=== PATIENT | female | born 1940 | race Caucasian/White ===

== ENCOUNTER → 2016-08-07 | Outpatient (CLI) | payer OTHER ==
[~2016-08-07] MED LIST: IOPAMIDOL (ISOVUE-300) 50 ML VIAL IV ONE
--- NOTE | 2016-08-07 17:03 | CT ---
CT Abdomen and Pelvis History: 76-year-old with diarrhea, fever, history of ulcerative colitis, rectal bleeding. Comparison: CT abdomen and pelvis of April 01, 2016. Technique: Axial contrast-enhanced images were obtained through the abdomen and pelvis following the uneventful administration of oral and 90 mL Isovue-300 intravenous contrast. Dose reduction technique s were utilized. Findings: Abdomen: Mild basilar atelectasis/scarring is present. Coronary artery atherosclerosis is present in the RCA. The visible liver, spleen, and adrenals are normal. Cholelithiasis and choledocholithiasis are presen t without significant biliary dilatation. Parapelvic cysts are noted in the left kidney. The right ki dney is normal. Sigmoid diverticulosis is present without evidence of diverticulitis. There is mild circumferential t hickening of portions of the colon, which are poorly distended, including the distal transverse colon (series 4 image 134 e.g.). There is no free air. A small hiatal hernia is present. Mild atherosclerosis is present in a normal caliber aorta. The IVC, hepatic, portal, splenic, and sup erior mesenteric veins are patent. A small fat-containing paraumbilical hernia is noted. Severe T12 and mild L1, L2, and L4 compression fractures are unchanged. Multilevel degenerative mireles e in the lumbar spine is again noted. Pelvis: Visualization of the pelvis is limited by artifact from the patient's bilateral hip prosthese s. A pessary is noted. The bladder is decompressed and poorly visualized. No aggressive osseous lesio ns are identified. Patchy demineralization in the sacrum is stable. Impression: 1. Mild colonic thickening most prominent in the transverse colon, suspicious for colitis, although u nderdistention limits assessment of the colon. 2. Cholelithiasis and choledocholithiasis without evidence of cholecystitis. 3. Multiple stable compression fractures, including a severe T12 compression fracture. 4. Additional findings as above.
== END ==
LOC: FIMAGING 15:37
PROVIDERS: ATTEND Internal Medicine Infectious Disease
DX: K57.90 Diverticulosis of intestine, part unspecified, without perforation or abscess without bleeding (principal); K80.20 Calculus of gallbladder without cholecystitis without obstruction; K80.50 Calculus of bile duct without cholangitis or cholecystitis without obstruction; I25.10 Atherosclerotic heart disease of native coronary artery without angina pectoris; N28.1 Cyst of kidney, acquired; M48.54XA Collapsed vertebra, not elsewhere classified, thoracic region, initial encounter for fracture
CPT/HCPCS: 74177; Q9967

== ENCOUNTER 2016-11-07 11:13 | Inpatient (IN) | payer OTHER ==
[2016-11-07] MEDS ORDERED: NS 1,000 ML IV ONE (11:47)
[2016-11-07] MEDS ORDERED: ONDANSETRON 4 MG/2 ML VIAL IVP ONE (11:47)
--- NOTE | 2016-11-07 11:51 | EDPHY ---
H & P Stated Complaint: abdominal pain Time Seen by Provider: 11/07/16 11:31 HPI/ROS: CHIEF COMPLAINT: Abdominal pain HISTORY OF PRESENT ILLNESS: Patient is a [facility] 68-year-old female who comes to the emergency department complaining of abdominal pain and distension and no bowel movement for 2 days. She has a history of ulcerative colitis and typically has about 10 bowel movements per day. She is currently on steroids. She is followed by Dr. Armas and had a colonoscopy 1 month ago that was negative for any cancer. Several polyps biopsied. She has history of atrial fibrillation and is on Xarelto. She is not vomiting. She denies chest pain or shortness of breath. REVIEW OF SYSTEMS: Constitutional: denies: chills, fever, recent illness, recent injury EENTM: denies: blurred vision, double vision, nose congestion Respiratory: denies: cough, shortness of breath Cardiac: denies: chest pain, irregular heart rate, lightheadedness, palpitations Gastrointestinal/Abdominal: See HPI Genitourinary: denies: dysuria, frequency, hematuria, pain Musculoskeletal: denies: joint pain, muscle pain Skin: denies: lesions, rash, jaundice, bruising Neurological: denies: headache, numbness, paresthesia, tingling, dizziness, weakness Hematologic/Lymphatic: denies: blood clots, easy bleeding, easy bruising Immunologic/allergic: denies: HIV/AIDS, transplant EXAM: GENERAL: Well-appearing, well-nourished and in no acute distress. HEAD: Atraumatic, normocephalic. EYES: Pupils equal round and reactive to light, extraocular movements intact, sclera anicteric, conjunctiva are normal. ENT: TMs normal, nares patent, oropharynx clear without exudates. Moist mucous membranes. NECK: Normal range of motion, supple without lymphadenopathy or JVD. LUNGS: Breath sounds clear to auscultation bilaterally and equal. No wheezes rales or rhonchi. HEART: Regular rate and rhythm without murmurs, rubs or gallops. ABDOMEN: Distended abdomen, reducible umbilical hernia, tympanic BACK: No CVA tenderness, no spinal tenderness, step-offs or deformities EXTREMITIES: Normal range of motion, no pitting or edema. No clubbing or cyanosis. NEUROLOGICAL: Cranial nerves II through XII grossly intact. Normal speech, normal gait. 5/5 strength, normal movement in all extremities, normal sensation PSYCH: Normal mood, normal affect. SKIN: Warm, dry, normal turgor, no visible rashes or lesions. Source: Patient Exam Limitations: No limitations - Personal History Current Tetanus Diphtheria and Acellular Pertussis (TDAP): Yes - Medical/Surgical History Hx Asthma: No Hx Chronic Respiratory Disease: No Hx Diabetes: No Hx Cardiac Disease: Yes Hx Renal Disease: No Hx Cirrhosis: No Hx Alcoholism: No Hx HIV/AIDS: No Hx Splenectomy or Spleen Trauma: No Other PMH: Ulcerative colitis, DVT, atfib, bilateral hip and knee replacements, diverticulitis - Family History Significant Family History: No pertinent family hx - Social History Smoking Status: Never smoked Alcohol Use: Sober Drug Use: None Constitutional: Initial Vital Signs Temperature (C) 36.9 C 11/07/16 11:13 Heart Rate 100 11/07/16 11:13 Respiratory Rate 16 11/07/16 11:13 Blood Pressure 110/65 11/07/16 11:13 O2 Sat (%) 94 11/07/16 11:13 O2 Delivery Mode Nasal Cannula O2 (L/minute) 2 Allergies/Adverse Reactions: hydrocodone [Hydrocodone] Allergy (Intermediate, Verified 03/09/16 13:52) NAUSEA/VOMITING/HEARTBURN/CONSTIPATION rifaximin [From Xifaxan] Allergy (Mild, Verified 03/09/16 13:52) Rash vancomycin HCl [From Vancocin] Allergy (Mild, Verified 03/09/16 13:52) Rash WEEDS Allergy (Mild, Uncoded 11/26/12 16:19) Rash 2 ANTIBIOTICS Allergy (Uncoded 08/22/09 04:46) Home Medications: Medication Instructions Recorded Jasper-3 Fatty Acids/Fish Oil [Fish 1 each PO DAILY 04/13/12 Oil 1,000 mg Capsule] Cetirizine [ZyrTEC 10 mg (*)] 10 mg PO DAILY 03/09/16 Cholecalciferol Vit D3 [Vitamin D3 2,000 units PO DAILY 03/09/16 (*)] Estradiol [Estrace Vaginal (*)] 1 hardy VAG Q2D 03/09/16 Lactobacil 2-S.thermo-Bifido 1 1 each PO DAILY@10 03/09/16 [VSL#3 DS PACKET] Mesalamine [Apriso 0.375 gm] 1.5 gm PO DAILY 03/09/16 Metoprolol Tartrate [Lopressor 25 12.5 mg PO BID 03/09/16 mg (*)] Rivaroxaban [Xarelto] 20 mg PO DAILY18 03/09/16 Budesonide [Uceris] 9 mg PO DAILY 11/07/16 Calcium Carbonate/Vitamin D3 1 each PO BID 11/07/16 [CALCIUM 600 + VIT D TABLET] Eflornithine HCl [Vaniqa] 1 hardy TP BID 11/07/16 Fluticasone Nasal [Flonase Nasal 1 sprays NASAL BID 11/07/16 Sieper (RX)] Fluticasone/Salmeter 250/50Mcg 1 puffs IH BID 11/07/16 [Advair 250/50 (*)] Herbals/Supplements -Info Only 1 ea PO DAILY 11/07/16 Humira Unk Dose 11/07/16 Reclast 5mg/100 1 each IV Q365D 11/07/16 Vancomycin [Vancomycin (*)] 125 mg PO Q6 11/07/16 predniSONE [predniSONE] 30 mg PO DAILY 11/07/16 Medical Decision Making - Diagnostics Imaging: Discussed imaging studies w/ call or contact centre team leader Radiologist ED Course/Re-evaluation: 1:25 p.m. Patient has a perforated small bowel with free air, free fluid in abscess. We have placed a page out to the [facility] surgeon. 1:35 p.m. I spoke with Dr. Diaz who will admit and is requesting to have IR drain. 1:[address] Rocha who does not think that the abscess is accessible through CT-guided drainage because it is surrounded by small-bowel. He will speak with Dr. Diaz about possibilities . Differential Diagnosis: Partial list of the Differential diagnosis considered include but were not limited to; small bowel obstruction, have abdominal wall hernia, abscess, perforation and although unlikely based on the history and physical exam, I also considered ischemia, volvulus. Critical Care Time: Critical care time spent by me, Dr. Hoyos exclusive with this patient was 35 minutes, exclusive of the PA time exclusive of procedures. The organ system that was at risk was gastrointestinal, cardiovascular and I gave IV fluids, antibiotics, consultations and admission to prevent worsening of the patient's condition - Data Points Laboratory Results: Laboratory Results 11/07/16 11:14 11/07/16 11:14 Medications Given: Discontinued Medications Hydromorphone HCl (Dilaudid) 0.5 mg IVP EDNOW ONE Stop: 11/07/16 13:47 Last Admin: 11/07/16 13:59 Dose: 0.5 mg Hydromorphone HCl (Dilaudid) 0.2 mg IVP Q2HRS PRN PRN Reason: Pain, Severe Unable to Take PO Stop: 11/17/16 18:05 Last Admin: 11/08/16 07:22 Dose: 0.2 mg Sodium Chloride (Ns) 1,000 mls @ 0 mls/hr IV ONCE ONE PRN Reason: Wide Open Stop: 11/07/16 11:48 Last Admin: 11/07/16 11:55 Dose: 1,000 mls Ertapenem 1 gm/ Sodium (Chloride) 100 mls @ 200 mls/hr IV EDNOW ONE PRN Reason: Protocol Stop: 11/07/16 14:05 Last Admin: 11/07/16 13:59 Dose: 100 mls Sodium Chloride (Ns) 500 mls @ 0 mls/hr IV ONCE ONE PRN Reason: As Directed Stop: 11/08/16 14:01 Last Admin: 11/08/16 13:59 Dose: 500 mls Sodium Chloride (Ns) 500 mls @ 1,500 mls/hr IV ONCE ONE Stop: 11/08/16 14:42 Last Admin: 11/08/16 15:44 Dose: Not Given Ondansetron HCl (Zofran) 4 mg IVP EDNOW ONE Stop: 11/07/16 11:48 Last Admin: 11/07/16 11:57 Dose: 4 mg Fluticasone/Salmeterol (Advair) 1 puffs IH BID LUANN Stop: 05/06/17 20:59 Last Admin: 11/07/16 20:27 Dose: Not Given Departure - Departure Disposition: [facility] Acute Clinical Impression: Ulcerative colitis, Small bowel perforation, Intraperitoneal abscess Condition: Fair
[2016-11-07 11:52] LABS: ADD MORPH? NO; ATYPICAL LYMPHOCYTE FLAG 50 (0-99); FRAGMENT RBC FLAG 20 (0-99); HEMATOCRIT 33.3 % (38.0-47.0); HEMOGLOBIN 10.1 g/dL (12.6-16.3); LIPEMIA HEMOLYSIS FLAG 80 (0-99); MEAN CELL HEMOGLOBIN CONCENTR. 30.3 g/dL (32.4-36.7); MEAN CELL VOLUME 82.4 fL (81.5-99.8); MEAN PLATELET VOLUME 9.8 fL (8.7-11.7); PLATELET CLUMPS FLAG 0 (0-99); PLATELET COUNT 390 10^3/uL (150-400); RED BLOOD CELL COUNT 4.04 10^6/uL (4.18-5.33); RED CELL DISTRIBUTION WIDTH 19.5 % (11.5-15.2)
[2016-11-07 11:53] LABS: LEFT SHIFT FLG 300 (0-99)
[2016-11-07 12:12] LABS: INR 2.15 (0.83-1.16); PROTIME(PATIENT) 24.2 SEC (12.0-15.0)
[2016-11-07 12:13] LABS: APTT 38.8 SEC (23.0-38.0)
[2016-11-07 12:29] LABS: ADD DIFF? YES; SCAN POSITIVE
[2016-11-07 12:32] LABS: ALANINE AMINOTRANSFERASE 19 IU/L (9-52); ALBUMIN 2.4 g/dL (3.5-5.0); ALKALINE PHOSPHATASE 61 IU/L (38-126); ANION GAP 7 mEq/L (8-16); ASPARTATE AMINOTRANSFERASE 15 IU/L (14-46); BILIRUBIN,TOTAL 0.6 mg/dL (0.1-1.4); BILIRUBIN-CONJUGATED 0.4 mg/dL (0.0-0.5); BILIRUBIN-UNCONJUGATED 0.2 mg/dL (0.0-1.1); CALCIUM 8.4 mg/dL (8.5-10.4); CARBON DIOXIDE 24 mEq/l (22-31); CHLORIDE 99 mEq/L (97-110); CREATININE 0.9 mg/dL (0.6-1.0); GLOMERULAR FILTRATION RATE > 60; GLUCOSE 96 mg/dL (70-100); POTASSIUM 4.3 mEq/L (3.5-5.2); SODIUM 130 mEq/L (134-144); TOTAL PROTEIN 5.2 g/dL (6.3-8.2)
[2016-11-07] MEDS ORDERED: IOPAMIDOL (ISOVUE-300) 100 ML BTL IV ONE (12:37)
[2016-11-07 12:46] LABS: HYPOCHROMIA 1+; MICROCYTES 1+; POLYCHROMASIA 2+
[2016-11-07 12:47] LABS: GIANT PLATELETS PRESENT; KERATOCYTES 1+; PLATELET ESTIMATE ADEQUATE (ADEQ); SCHISTOCYTES 1+
[2016-11-07] MEDS ORDERED: ERTAPENEM 1 GM in NS 100 ML IV ONE (13:36)
[2016-11-07] MEDS ORDERED: HYDROmorphONE/DILAUDID 1 MG/ML SYR IVP ONE (13:46)
[2016-11-07] MEDS ORDERED: BUPIVACAINE 0.25% 30 ML SDV ONE (15:51)
[2016-11-07] MEDS ORDERED: BUPIVACAINE 0.5% 30 ML SDV ONE (15:52)
[2016-11-07] MEDS ORDERED: MIDAZOLAM 2 MG/2 ML VIAL ONE (18:04)
[2016-11-07] MEDS ORDERED: fentaNYL 250 MCG/5 ML INJ ONE (18:04)
[2016-11-07] MEDS ORDERED: PROPOFOL 200 MG/20 ML VIAL ONE (18:04)
[2016-11-07] MEDS ORDERED: ALBUMIN 5% 250 ML BOTTLE IV ONE (18:16)
[2016-11-07] MEDS ORDERED: ROCURONIUM 50 MG/5 ML VIAL ONE ×2 (18:25→18:48)
[2016-11-07] MEDS ORDERED: SUCCINYLCHOLINE CHLORIDE*ANESTHESIA ONLY*200 MG/10 ML SYR IVP ONE (18:25)
[2016-11-07] MEDS ORDERED: METOPROLOL TARTRATE 5 MG/5 ML INJ ONE (18:25)
[2016-11-07] MEDS ORDERED: PHENYLEPHRINE HCL 100 MCG/ML SYR ONE (18:25)
[2016-11-07] MEDS ORDERED: CALCIUM CHLORIDE 1 GM/10 ML INJ ONE (18:27)
[2016-11-07] MEDS ORDERED: LR 1,000 ML IV SCH (18:30)
[2016-11-07 18:31] LABS: ADD SCAN? NO
[2016-11-07] MEDS ORDERED: NALOXONE HCL 0.4 MG/ML INJ IVP PRN (19:05)
[2016-11-07] MEDS ORDERED: ONDANSETRON 4 MG/2 ML VIAL ONE (19:15)
--- NOTE | 2016-11-07 20:08 | POSTOPPROG ---
Post Op Note Date of Operation: 11/07/16 Surgeon: Reji Diaz Anesthesiologist: Dr. Casillas Anesthesia: GET(General Endotracheal) Pre-op Diagnosis: Bowel perforation with abscess Post-op Diagnosis: Sigmoid perforation with abscess Procedure: Ex lap, drainage of abscess, closure of colonic perforation Inf/Abcess present in the surg proc area at time of surgery?: Yes Depth: Organ Space EBL: Minimal
[2016-11-07 20:32] LABS: COLOR YELLOW; LEUKOCYTE ESTERASE,URINE NEGATIVE (NEGATIVE); NITRITE,URINE NEGATIVE (NEGATIVE)
[2016-11-07 20:45] LABS: BACTERIA TRACE /hpf (NONE SEEN); MUCUS 1+ /lpf (NONE-1+)
[2016-11-07] MEDS ORDERED: FLUTICASONE/SALMETER 250/50MCG DISKUS IH SCH (21:00)
[2016-11-07] MEDS: HYDROmorphONE/DILAUDID 1 MG/ML SYR IVP PRN (21:29)
[2016-11-08 05:02] LABS: HEMATOCRIT 28.7 % (38.0-47.0); HEMOGLOBIN 8.7 g/dL (12.6-16.3); MEAN CELL HEMOGLOBIN 25.2 pg (27.9-34.1); MEAN CELL HEMOGLOBIN CONCENTR. 30.3 g/dL (32.4-36.7); MEAN CELL VOLUME 83.2 fL (81.5-99.8); RED BLOOD CELL COUNT 3.45 10^6/uL (4.18-5.33); RED CELL DISTRIBUTION WIDTH 19.3 % (11.5-15.2)
[2016-11-08 05:07] LABS: ALANINE AMINOTRANSFERASE 22 IU/L (9-52); ALKALINE PHOSPHATASE 37 IU/L (38-126); ANION GAP 6 mEq/L (8-16); ASPARTATE AMINOTRANSFERASE 18 IU/L (14-46); BILIRUBIN,TOTAL 1.1 mg/dL (0.1-1.4); CALCIUM 9.1 mg/dL (8.5-10.4); CARBON DIOXIDE 23 mEq/l (22-31); CHLORIDE 104 mEq/L (97-110); GLOMERULAR FILTRATION RATE 54; GLUCOSE 70 mg/dL (70-100); POTASSIUM 4.9 mEq/L (3.5-5.2); SODIUM 133 mEq/L (134-144); TOTAL PROTEIN 4.2 g/dL (6.3-8.2)
--- NOTE | 2016-11-08 06:17 | GOP ---
[f rep st] OPERATIVE REPORT DATE OF OPERATION: 11/07/2016 SURGEON: Cain Diaz MD ANESTHESIA: General endotracheal anesthesia. ANESTHESIOLOGIST: Robert Casillas. PREOPERATIVE DIAGNOSIS: Bowel perforation with abscess. POSTOPERATIVE DIAGNOSIS: Colonic perforation with abscess. PROCEDURE PERFORMED: 1. Exploratory laparotomy. 2. Drainage of intraabdominal abscess. 3. Repair of colon perforation. FINDINGS: The patient had an abscess with sigmoid perforation. No other significant lesions were identified. ESTIMATED BLOOD LOSS: 20 cc. INDICATIONS: This is a 76-year-old female with a history of abdominal pain. CT scan demonstrated abscess with likely perforation. Risks and benefits of the procedure were discussed the patient's family, their questions were answered , and they wished to proceed. DESCRIPTION OF PROCEDURE: The patient was in supine position. After induction of adequate general endotracheal anesthesia, the patient was prepped and draped in the standard surgical fashion. A midline laparotomy incision was made with a #10 blade and carried down through subcutaneous tissue with Bovie cautery and blunt dissection. The fascia was divided in the midline, and the abdomen was entered bluntly. Initially serous fluid was in encountered; however, in the pelvis, there was a purulent/fluid collection. This was cultured and then thoroughly drained and irrigated. There were some adherent loops of small bowel that were bluntly dissected away. The bowel appeared initially hemorrhagic but improved. The bowel was run from the ligament of Treitz to the ileocecal valve. No evidence of perforation was noted. The sigmoid was inspected and found to have an approximately 4 or 5 mm perforation on the anteromedial aspect. The sigmoid itself appeared quite viable. No further contamination was identified. Due to the patient's multiple medical conditions, the decision was made to repair the perforation and perform drainage of the abscess cavity. A 19 round TIKA drain was placed through a separate stab incision and affixed using 2-0 nylon in an interrupted fashion. The drain was placed in the abscess cavity itself after have been thoroughly irrigated. Next, a flap of peritoneum was mobilized using blunt dissection and cautery. This was placed over the perforation and tied down using 3-0 Vicryl in an interrupted fashion. The remainder of the colon was inspected, and no other lesions were identified. No further abscess cavities were noted. The fascia was then closed with #1 looped PDS in a running fashion. As part of this, the patient's umbilical hernia was repaired. The wound was thoroughly irrigated, and the skin was closed with torres. Wound and TIKA site were sterilely dressed, and the patient was extubated and taken to the ICU in stable condition. COMPLICATIONS: None. DRAINS: Include the TIKA drain in the abscess cavity. /[id number]/MODL MTDD
[2016-11-08] MEDS: HYDROmorphONE/DILAUDID 1 MG/ML SYR IVP PRN ×5 (07:22→21:14)
[2016-11-08] MEDS: FLUTICASONE/SALMETER 250/50MCG DISKUS IH SCH ×2 (08:43→20:24)
[2016-11-08] MEDS: ERTAPENEM 1 GM in NS 100 ML IV SCH (08:49)
--- NOTE | 2016-11-08 10:33 | GCON ---
[f rep st] CONSULTATION DATE OF CONSULTATION: 11/08/2016 REFERRING PHYSICIAN: Cain Diaz MD REASON FOR CONSULTATION: Opinion regarding complex medical patient in the perioperative state. HISTORY OF PRESENT ILLNESS: The patient is a 76-year-old female with ulcerative colitis on chronic steroids. She has been recently battling Clostridium difficile and has been diagnosed with C. diff 3 times in the recent history. She was just restarted on oral vancomycin last Sunday. Two days ago she developed increased abdominal pain and distention with profuse nausea and vomiting. She went f rom 10 bowel movements a day to none. She presented to the emergency room and initial CAT scan show ed free air. She was brought emergently to the operating room with Dr. Diaz. She was found to h ave a colon perforation with abscess. She underwent drainage and repair of the colon perforation. This morning the patient is doing very well. She is awake, alert, normal mental status, complainin g of fear and anxiety regarding what has happened to her. Otherwise she is having some pain for whi ch she is inadequately controlled on 0.2 of Dilaudid. She is otherwise actually remarkably well and stable. PAST MEDICAL HISTORY: 1. Ulcerative colitis. 2. Atrial fibrillation. 3. Recurrent DVT and PE. 4. History of C diff x3. PAST SURGICAL HISTORY: 1. Bilateral total hip. 2. Bilateral total knee. MEDICATIONS: Please see computer record for a full detailed list. ALLERGIES: Rifaximin. SOCIAL HISTORY: No smoking. No alcohol. She lives with her . REVIEW OF SYSTEMS: Complete review of systems obtained. Review of systems is negative regarding co nstitutional, HEENT, GI, pulmonary, cardiovascular, , hematology, skin, muscular, endocrine, psych except for positives and negatives as noted in her HPI. FAMILY HISTORY: Reviewed and noncontributory to current complaint. PHYSICAL EXAMINATION: GENERAL: Well-developed, well-nourished female in no acute distress. VITAL SIGNS: Temperature is 36.8, pulse of 90, blood pressure 113/58, satting 100% on 2 L. EYE: Normal conjunctiva. Pupils are equal, round, react to light. ENT: Normal ears and nose. Hearing intact. Normal teeth. Oropharynx moist. NECK: Trachea midline. No thyromegaly. CHEST: Normal respira tory effort. LUNGS: Clear to auscultation bilaterally. CARDIOVASCULAR: Regular rate, regular rhy thm. No murmur. No lower extremity edema. ABDOMEN: Soft, distended. Positive tenderness postope rative. No hepatosplenomegaly. SKIN: Warm and dry, intact. No rash. MUSCULOSKELETAL: No cyanos is or clubbing. Strength 5/5 upper and lower extremities. NEUROLOGIC: Cranial nerves intact. Nor mal sensation to light touch. PSYCH: Alert and oriented x3. Normal affect. Normal judgment. Nor mal memory. She is anxious. LABORATORY DATA: White count 13.05, hematocrit 28.7, platelets 328, sodium 133, potassium 4.9, chlo ride 104, bicarb 23, BUN 19, creatinine 1.0, glucose is 70. INR 2.15. CT scan of the abdomen and pelvis showed extensive free intraperitoneal air and fluid compatible wit h bowel perforation. MEDICAL RECORDS REVIEW: She was hospitalized here in March at that time due to a femur fracture . Her ulcer colitis was relatively quiescent. She did have acute diverticulitis. ASSESSMENT AND PLAN: 1. Colon perforation with abscess status post drainage and repair. She has been started on IV Inva nz which will be continued. We will increase her IV Dilaudid for improved pain control. 2. Recent diagnosis of Clostridium difficile colitis. Oral vancomycin is being held and we will gi ve her IV Flagyl while she is n.p.o. It is unclear how the Clostridium difficile may have contribut ed to the colon perforation. Her chronic steroids are also an issue. 3. Ulcerative colitis on chronic steroids. We will dose IV hydrocortisone while she is n.p.o. 4. This will also be adequate stress dose. 5. History of recurrent deep venous thrombosis and pulmonary emboli. She is very high risk. Xarel to is being held. Need to restart anticoagulation JENNY when okay with surgery. 6. Atrial fibrillation. We will restart oral metoprolol when she is taking p.o. At this point, sh e is controlled. CODE STATUS: She requests full COR. Internal Medicine will continue to follow along while she remains hospitalized. /[id number]/MODL
--- NOTE | 2016-11-08 12:38 | SOAPPROG ---
SOAP Progress Note Assessment/Plan: Assessment: s/p ex-lap with oversew and drainage of abscess, stable. Cont NPO, TIKA, abx, IVF. Cont ICU care as steroids likely blunting response. Plan: 11/08/16 12:37 Subjective: Patient c/o incisional pain, improved with meds. No N/V. Objective: Vital Signs Temp Pulse Resp BP Pulse Ox 36.7 C 101 H 20 122/51 H 94 11/08/16 08:00 11/08/16 08:46 11/08/16 08:46 11/08/16 08:00 11/08/16 08:46 Microbiology 11/07/16 18:29 Gram Stain - Final Abdomen - Eswab Laboratory Results 11/08/16 04:44 11/08/16 04:44 11/07/16 11/08/16 11/09/16 05:59 05:59 05:59 Intake Total 900 Output Total 890 Balance 10 PT 24.2 SEC (12.0-15.0) H 11/07/16 11:14 INR 2.15 (0.83-1.16) H 11/07/16 11:14 Alert, NAD RRR Abd sl distended, inc TTP drsg C/D/I TIKA serosang ICD10 Worksheet Patient Problems: Problems Problem Status Onset Intraperitoneal abscess Acute Small bowel perforation Acute Ulcerative colitis Acute Chronic bronchitis Active Fracture of lower leg Active History of - deep vein thrombosis Active C. difficile diarrhea Acute 11/01/16 Diverticulitis Acute Femur fracture Acute
[2016-11-08] MEDS: HYDROCORTISONE 100 MG/2 ML VIAL IVP SCH ×2 (13:31→21:14)
[2016-11-08] MEDS ORDERED: NS 500 ML IV ONE ×2 (14:00→14:23)
[2016-11-08] MEDS: NS 1,000 ML IV SCH (14:55)
[2016-11-08] MEDS: METOPROLOL TARTRATE 5 MG/5 ML INJ IV PRN (15:04)
--- NOTE | 2016-11-08 16:12 | HOSPPROG ---
Hospitalist Progress Note Assessment/Plan: * colonic perforation with abscess status post surgery * continue IV Invanz * consider Infectious Disease consultation at some point * ulcerative colitis on chronic steroids * continue stress dose steroids * recent diagnosis of C diff * continue IV Flagyl until can take p.o. * borderline hypotension and poor urine output * lactate is normal * will increase IV fluids * history of DVT and PE * had been on Xarelto evidenced by elevated INR on admission * probably still protected today * tomorrow will start DVT prophylaxis dosing of Lovenox - not sure we need to increase dosing until several more days Subjective: complaining of some abdominal pain Objective: Vital Signs Temp Pulse Resp BP Pulse Ox 36.5 C 133 H 20 118/58 L 98 11/08/16 12:41 11/08/16 15:04 11/08/16 12:41 11/08/16 15:04 11/08/16 12:41 Microbiology 11/07/16 18:29 Gram Stain - Final Abdomen - Eswab Laboratory Results 11/08/16 04:44 11/08/16 04:44 11/07/16 11/08/16 11/09/16 05:59 05:59 05:59 Intake Total 900 Output Total 890 Balance 10 PT 24.2 SEC (12.0-15.0) H 11/07/16 11:14 INR 2.15 (0.83-1.16) H 11/07/16 11:14 - Physical Exam Constitutional: no apparent distress, appears nourished, not in pain Eyes: anicteric sclera, EOMI Ears, Nose, Mouth, Throat: moist mucous membranes, hearing normal Cardiovascular: regular rate and rhythym, tachycardia ( mild tachycardia at times) Respiratory: no respiratory distress, no rales or rhonchi, clear to auscultation Gastrointestinal: other ( decreased bowel sounds distended soft mildly tender) Neurologic: AAOx3 ICD10 Worksheet Patient Problems: Problems Problem Status Onset Intraperitoneal abscess Acute Small bowel perforation Acute Ulcerative colitis Acute Chronic bronchitis Active Fracture of lower leg Active History of - deep vein thrombosis Active C. difficile diarrhea Acute 11/01/16 Diverticulitis Acute Femur fracture Acute
--- NOTE | 2016-11-08 16:19 | GCON ---
[f rep st] CONSULTATION CRITICAL CARE CONSULTATION DATE OF CONSULTATION: 11/08/2016 HISTORY OF PRESENT ILLNESS: The patient is a 76-year-old female with a history of ulcerative coliti s who underwent a colonoscopy just a few weeks ago without difficulty. She also had problems with r ecurrent C difficile colitis and was treated with oral vancomycin as of just a few days prior to adm ission. In any case, she was admitted yesterday with increasing abdominal pain and was found to hav e a perforation, required urgent partial colectomy in the OR. She did well with that and is now ronald ng observed in the intensive care unit. She was on anticoagulation prior to that due to recurrent t hromboembolic disease but that was obviously held. She also received stress dose steroids since she is on chronic steroids for the ulcerative colitis. REVIEW OF SYSTEMS: Otherwise stable. PAST MEDICAL HISTORY: Includes: 1. Ulcerative colitis. 2. C difficile. 3. Atrial fibrillation. 4. Venous thromboembolic disease as described above. PAST SURGICAL HISTORY: Includes the recent surgery from yesterday. She has also had bilateral tota l knee arthroplasties and bilateral total hip arthroplasties. SOCIAL HISTORY: She is a nonsmoker. No alcohol or IV drug use. FAMILY HISTORY: Noncontributory. MEDICATIONS: She is currently being treated with ertapenem, Solu-Cortef, Dilaudid, Flagyl, Zofran, Advair. PHYSICAL EXAMINATION: VITAL SIGNS: She was afebrile. Heart rate 108, respirations 21, blood press ure 122/51, sat 94% on 2 L. GENERAL: She was awake and alert, oriented x3, and in no apparent dist ress and able to speak in full sentences without using accessory muscles for breathing. HEENT: Pup ils are equally round and reactive to light and nonicteric and noninjected. Mucous membranes are mo ist, without erythema or exudate. NECK: Supple, without adenopathy or jugular vein distention. RE SPIRATORY: Breath sounds are somewhat diminished but otherwise clear to auscultation bilaterally wi thout wheezes, rubs or rales. HEART: Regular rate and rhythm though the monitor looked like it was irregular. There are no obvious murmurs. ABDOMEN: Mildly tender but otherwise hypoactive bowel t ones and nondistended. EXTREMITIES: No clubbing, cyanosis, or edema. NEUROLOGIC: Nonfocal, inclu ding cranial nerves and deep tendon reflexes. SKIN: Warm and dry, without evidence of rash. OBJECTIVE DATA: Includes a white count of 13 today, hematocrit was 28, platelets of 328. Sodium is 133. The rest of her basic metabolic panel was unremarkable. Albumin only 2.0. UA was essentiall y negative from yesterday. ASSESSMENT/PLAN: 1. Colonic perforation. She appears to be recovering from this reasonably well and has good antibi otic coverage and is otherwise stable. She will remain n.p.o., according to surgery notes, for anot her day but expected good recovery. 2. History of atrial fibrillation. She is rate controlled at this time. I am concerned that she m ay have a rebound tachycardia and I have written for p.r.n. IV metoprolol should her heart rate get above 120. 3. Clostridium difficile. It is possible this is a colonizer though this was identified only a few weeks ago. She is on Clostridium difficile precautions. She is getting Flagyl currently which blake uld be reasonable coverage for that. We will otherwise continue to follow. /[id number]/MODL
[2016-11-09] MEDS: NS 1,000 ML IV SCH ×3 (05:21→22:23)
[2016-11-09 05:39] LABS: HEMATOCRIT 25.3 % (38.0-47.0); HEMOGLOBIN 7.7 g/dL (12.6-16.3); MEAN CELL HEMOGLOBIN 25.8 pg (27.9-34.1); MEAN CELL HEMOGLOBIN CONCENTR. 30.4 g/dL (32.4-36.7); MEAN CELL VOLUME 84.6 fL (81.5-99.8); RED BLOOD CELL COUNT 2.99 10^6/uL (4.18-5.33); RED CELL DISTRIBUTION WIDTH 19.3 % (11.5-15.2)
[2016-11-09 05:47] LABS: ALANINE AMINOTRANSFERASE 25 IU/L (9-52); ALBUMIN 1.8 g/dL (3.5-5.0); ALKALINE PHOSPHATASE 48 IU/L (38-126); ANION GAP 6 mEq/L (8-16); ASPARTATE AMINOTRANSFERASE 14 IU/L (14-46); BILIRUBIN,TOTAL 0.4 mg/dL (0.1-1.4); CALCIUM 7.7 mg/dL (8.5-10.4); CARBON DIOXIDE 20 mEq/l (22-31); CHLORIDE 109 mEq/L (97-110); CREATININE 0.8 mg/dL (0.6-1.0); GLOMERULAR FILTRATION RATE > 60; GLUCOSE 79 mg/dL (70-100); POTASSIUM 4.1 mEq/L (3.5-5.2); SODIUM 135 mEq/L (134-144); TOTAL PROTEIN 4.2 g/dL (6.3-8.2)
[2016-11-09] MEDS: HYDROCORTISONE 100 MG/2 ML VIAL IVP SCH ×3 (06:40→22:18)
[2016-11-09] MEDS: ERTAPENEM 1 GM in NS 100 ML IV SCH (08:22)
[2016-11-09] MEDS: ENOXAPARIN 40 MG/0.4 ML SYR SC SCH (08:23)
[2016-11-09] MEDS: HYDROmorphONE/DILAUDID 1 MG/ML SYR IVP PRN ×4 (08:30→16:08)
[2016-11-09] MEDS: FLUTICASONE/SALMETER 250/50MCG DISKUS IH SCH ×2 (09:33→21:24)
--- NOTE | 2016-11-09 10:12 | SOAPPROG ---
SOAP Progress Note Assessment/Plan: Assessment: s/p ex-lap with oversew and drainage of abscess, stable. Cont TIKA, abx, IVF. Poss advance to clears once she is more mobile. Appreciate consultants' input. D/w patient and at length, questions answered. Plan: 11/08/16 12:37 11/09/16 10:10 Subjective: Patient c/o inc pain, improving. No N/V. No ambulation. Objective: Vital Signs Temp Pulse Resp BP Pulse Ox 36.4 C 124 H 20 113/61 95 11/09/16 07:32 11/09/16 09:33 11/09/16 09:33 11/09/16 09:33 11/09/16 09:33 Microbiology 11/07/16 18:29 Gram Stain - Final Abdomen - Eswab Laboratory Results 11/09/16 05:00 11/09/16 05:00 11/08/16 11/09/16 11/10/16 05:59 05:59 05:59 Intake Total 900 3188 Output Total 890 1065 Balance 10 2123 PT 24.2 SEC (12.0-15.0) H 11/07/16 11:14 INR 2.15 (0.83-1.16) H 11/07/16 11:14 Alert, NAD Irreg Abd soft, inc TTP Inc C/D/I TIKA serous. ICD10 Worksheet Patient Problems: Problems Problem Status Onset Intraperitoneal abscess Acute Small bowel perforation Acute Ulcerative colitis Acute Chronic bronchitis Active Fracture of lower leg Active History of - deep vein thrombosis Active C. difficile diarrhea Acute 11/01/16 Diverticulitis Acute Femur fracture Acute
--- NOTE | 2016-11-09 12:25 | PDINTPN ---
[employer] Progress Note Assessment/Plan: Assessment/plan: 76 F with history of ulcerative colitis s/p colonoscopy with polyp removal 2-3 weeks [facility] [employer] admitted with abdominal pain and found to have bowel perforation and abscess. She underwent hemicolectomy and was brought to the ICU for ongoing monitoring. Her PMH also includes chronic afib, for which she was controlled on BID metoprolol and anticoagulation. * Peritonitis- 2/2 bowel perforation. Clinically stable without pressors and WBC hovering at 14. Currently covered with ertapenem and flagyl. Abdominal cultures with Klebsiella and E. Coli. * C diff- this is a recent diagnosis but is apparently recurrent. She is covered with IV flagyl and remains NPO so oral vancomycin cannot be used. * Afib- she remains rate controlled and has IV metoprolo written prn HR >120 ( assuming rate is afib) * * Objective: Vital Signs Temp Pulse Resp BP Pulse Ox 36.6 C 106 H 18 95/57 L 95 11/09/16 11:51 11/09/16 11:51 11/09/16 11:51 11/09/16 11:51 11/09/16 11:51 Microbiology 11/07/16 18:29 Gram Stain - Final Abdomen - Eswab Laboratory Results 11/09/16 05:00 11/09/16 05:00 11/08/16 11/09/16 11/10/16 05:59 05:59 05:59 Intake Total 900 3188 Output Total 890 1065 Balance 10 2123 PT 24.2 SEC (12.0-15.0) H 11/07/16 11:14 INR 2.15 (0.83-1.16) H 11/07/16 11:14 Physical Exam - Physical Exam General Appearance: WD/WN, alert, no apparent distress, obese EENT: PERRL/EOMI Neck: supple Respiratory: lungs clear, normal breath sounds, No respiratory distress Cardiac/Chest: normal peripheral pulses, regular rate, rhythm, No edema Abdomen: non-tender, soft, No distended Skin: normal color, warm/dry Extremities: No pedal edema Neuro/Psych: alert, normal mood/affect, oriented x 3 ICD10 Worksheet Patient Problems: Problems Problem Status Onset Intraperitoneal abscess Acute Small bowel perforation Acute Ulcerative colitis Acute Chronic bronchitis Active Fracture of lower leg Active History of - deep vein thrombosis Active C. difficile diarrhea Acute 11/01/16 Diverticulitis Acute Femur fracture Acute
[2016-11-09] MEDS: METOPROLOL TARTRATE 5 MG/5 ML INJ IV PRN (14:37)
--- NOTE | 2016-11-09 17:17 | HOSPPROG ---
Hospitalist Progress Note Assessment/Plan: 76 yo F w UC< recurrent cdiff, chronic steroids, bowel perf bowel perf: pod 2 s/p repair and washout e coli and klebsiella on peritoneal fluid on ertapenem blood cx of spikes recurrent cdiff: po vanc restarted can dc flagyl unclear contribution to current situation continue po vanc while on broad spectrum abx h/o AF: in AF now restart po metoprolol h/o PE: high risk for VTE on enox pain: prn IV dilaudid code: full Subjective: case d/w dr crowell, dr horvath. tele: AF (interp by me) Objective: Vital Signs Temp Pulse Resp BP Pulse Ox 36.7 C 98 13 115/62 96 11/09/16 16:00 11/09/16 16:00 11/09/16 16:00 11/09/16 16:00 11/09/16 16:00 Microbiology 11/07/16 18:29 Gram Stain - Final Abdomen - Eswab Laboratory Results 11/09/16 05:00 11/09/16 05:00 11/08/16 11/09/16 11/10/16 05:59 05:59 05:59 Intake Total 900 3188 Output Total 890 1065 Balance 10 2123 PT 24.2 SEC (12.0-15.0) H 11/07/16 11:14 INR 2.15 (0.83-1.16) H 11/07/16 11:14 - Physical Exam Constitutional: no apparent distress, appears nourished Eyes: PERRL, anicteric sclera Ears, Nose, Mouth, Throat: moist mucous membranes, hearing normal Cardiovascular: regular rate and rhythym, no murmur, rub, or gallop Respiratory: no respiratory distress, no rales or rhonchi Gastrointestinal: distension, No normoactive bowel sounds, No rebound Skin: warm, normal color Musculoskeletal: full muscle strength ICD10 Worksheet Patient Problems: Problems Problem Status Onset Intraperitoneal abscess Acute Small bowel perforation Acute Ulcerative colitis Acute Chronic bronchitis Active Fracture of lower leg Active History of - deep vein thrombosis Active C. difficile diarrhea Acute 11/01/16 Diverticulitis Acute Femur fracture Acute
[2016-11-09] MEDS: VANCOMYCIN 125 MG/2.5 ML UDL PO SCH ×2 (19:24→23:53)
[2016-11-09] MEDS: METOPROLOL TARTRATE 25 MG TAB PO SCH (21:02)
[2016-11-10] MEDS: HYDROmorphONE/DILAUDID 1 MG/ML SYR IVP PRN ×5 (02:06→20:44)
[2016-11-10] MEDS: ONDANSETRON 4 MG/2 ML VIAL IVP PRN ×4 (02:21→20:40)
[2016-11-10] MEDS: NS 1,000 ML IV SCH ×2 (04:41→20:38)
[2016-11-10 04:51] LABS: HEMATOCRIT 28.1 % (38.0-47.0); HEMOGLOBIN 8.5 g/dL (12.6-16.3); LIPEMIA HEMOLYSIS FLAG 80 (0-99); MEAN CELL HEMOGLOBIN 25.3 pg (27.9-34.1); MEAN CELL HEMOGLOBIN CONCENTR. 30.2 g/dL (32.4-36.7); MEAN CELL VOLUME 83.6 fL (81.5-99.8); PLATELET COUNT 405 10^3/uL (150-400); RED BLOOD CELL COUNT 3.36 10^6/uL (4.18-5.33); RED CELL DISTRIBUTION WIDTH 19.3 % (11.5-15.2)
[2016-11-10 05:05] LABS: ALANINE AMINOTRANSFERASE 26 IU/L (9-52); ALBUMIN 2.1 g/dL (3.5-5.0); ALKALINE PHOSPHATASE 63 IU/L (38-126); ANION GAP 7 mEq/L (8-16); ASPARTATE AMINOTRANSFERASE 16 IU/L (14-46); BILIRUBIN,TOTAL 0.4 mg/dL (0.1-1.4); CALCIUM 7.3 mg/dL (8.5-10.4); CARBON DIOXIDE 19 mEq/l (22-31); CHLORIDE 111 mEq/L (97-110); CREATININE 0.8 mg/dL (0.6-1.0); GLOMERULAR FILTRATION RATE > 60; GLUCOSE 135 mg/dL (70-100); POTASSIUM 4.2 mEq/L (3.5-5.2); SODIUM 137 mEq/L (134-144); TOTAL PROTEIN 4.7 g/dL (6.3-8.2)
[2016-11-10] MEDS: HYDROCORTISONE 100 MG/2 ML VIAL IVP SCH ×3 (05:58→22:28)
[2016-11-10] MEDS: VANCOMYCIN 125 MG/2.5 ML UDL PO SCH ×3 (05:59→22:34)
[2016-11-10] MEDS: METOPROLOL TARTRATE 25 MG TAB PO SCH ×2 (09:18→22:30)
[2016-11-10] MEDS: ERTAPENEM 1 GM in NS 100 ML IV SCH (09:18)
[2016-11-10] MEDS: ENOXAPARIN 40 MG/0.4 ML SYR SC SCH (09:19)
[2016-11-10] MEDS: FLUTICASONE/SALMETER 250/50MCG DISKUS IH SCH ×2 (10:19→19:45)
--- NOTE | 2016-11-10 12:21 | SOAPPROG ---
SOAP Progress Note Assessment/Plan: Assessment: s/p ex-lap with oversew and drainage of abscess, stable. Cont TIKA, abx, IVF. Protonix for heartburn. Ambulate. Cont clears for now. Plan: 11/08/16 12:37 11/09/16 10:10 11/10/16 12:20 Subjective: Patient c/o heartburn, some incisional pain. No nausea. Wilmar clears. Minimal ambulation. Objective: Vital Signs Temp Pulse Resp BP Pulse Ox 36.4 C 96 14 126/74 H 96 11/10/16 08:00 11/10/16 10:24 11/10/16 10:24 11/10/16 08:00 11/10/16 10:24 Microbiology 11/07/16 18:29 Gram Stain - Final Abdomen - Eswab Laboratory Results 11/10/16 04:37 11/10/16 04:37 11/09/16 11/10/16 11/11/16 05:59 05:59 05:59 Intake Total 3188 3415 Output Total 1065 1045 Balance 2123 2370 PT 24.2 SEC (12.0-15.0) H 11/07/16 11:14 INR 2.15 (0.83-1.16) H 11/07/16 11:14 Alert, NAD irreg Abd soft, inc TTP Inc C/D/I TIKA serous ICD10 Worksheet Patient Problems: Problems Problem Status Onset Intraperitoneal abscess Acute Small bowel perforation Acute Ulcerative colitis Acute Chronic bronchitis Active Fracture of lower leg Active History of - deep vein thrombosis Active C. difficile diarrhea Acute 11/01/16 Diverticulitis Acute Femur fracture Acute
[2016-11-10] MEDS ORDERED: DILTIAZEM 25 MG/5 ML VIAL IVP SCH (13:00)
[2016-11-10] MEDS: PANTOPRAZOLE SODIUM 40 MG in NS 100 ML IV SCH (13:28)
--- NOTE | 2016-11-10 15:23 | HOSPPROG ---
Hospitalist Progress Note Assessment/Plan: 76 yo F w UC< recurrent cdiff, chronic steroids, bowel perf bowel perf: pod 2 s/p repair and washout e coli and klebsiella on peritoneal fluid on ertapenem blood cx of spikes given colon rupture and chronic steroids, suspect she will need fungal coverage ID will see recurrent cdiff: po vanc restarted can dc flagyl unclear contribution to current situation continue po vanc while on broad spectrum abx h/o AF: in AF now restart po metoprolol received 1 dose IV diltiazem for rapid AF; rate now in 80's h/o PE: high risk for VTE on enox pain: prn IV dilaudid code: full Subjective: tele: rapid AF in 130's, now improved (interp by me). case d/w miley horvath and mervat Objective: Vital Signs Temp Pulse Resp BP Pulse Ox 36.4 C 90 18 124/65 H 95 11/10/16 12:00 11/10/16 12:00 11/10/16 12:00 11/10/16 12:00 11/10/16 12:00 Microbiology 11/07/16 18:29 Gram Stain - Final Abdomen - Eswab Laboratory Results 11/10/16 04:37 11/10/16 04:37 11/09/16 11/10/16 11/11/16 05:59 05:59 05:59 Intake Total 3188 3415 Output Total 1065 1045 180 Balance 2123 2370 -180 PT 24.2 SEC (12.0-15.0) H 11/07/16 11:14 INR 2.15 (0.83-1.16) H 11/07/16 11:14 - Physical Exam Constitutional: no apparent distress, appears nourished Eyes: PERRL, anicteric sclera Ears, Nose, Mouth, Throat: moist mucous membranes, hearing normal Cardiovascular: regular rate and rhythym, no murmur, rub, or gallop Respiratory: no respiratory distress, no rales or rhonchi Gastrointestinal: other (bowel sounds present but hypoactive) Genitourinary: grande in urethra Skin: warm, normal color Musculoskeletal: full muscle strength, no muscle tenderness Neurologic: AAOx3 ICD10 Worksheet Patient Problems: Problems Problem Status Onset Intraperitoneal abscess Acute Small bowel perforation Acute Ulcerative colitis Acute Chronic bronchitis Active Fracture of lower leg Active History of - deep vein thrombosis Active C. difficile diarrhea Acute 11/01/16 Diverticulitis Acute Femur fracture Acute
[2016-11-10] MEDS: predniSONE 10 MG TAB PO SCH (16:28)
[2016-11-10] MEDS ORDERED: FLUCONAZOLE 100 MG TAB PO SCH (17:00)
[2016-11-10] MEDS: FLUCONAZOLE/NaCl 100 ML IV SCH (17:23)
--- NOTE | 2016-11-10 21:40 | GCON ---
[f rep st] CONSULTATION INFECTIOUS DISEASE CONSULTATION DATE OF CONSULTATION: 11/10/2016 REFERRING PHYSICIAN: Baldomero Bello MD REASON FOR CONSULTATION: Management of intraabdominal abscess and history of C diff. HISTORY OF PRESENT ILLNESS: This is a [id number], who I have previously seen in clinic in July of 2016, for evaluation of fever, who had post primary symptoms with low-grade temperatures, drenching night sweats, but symptoms only localized to the GI tract. A CT scan was performed at that time, which shows mild colonic thickening on the transverse colon. In addition, at that time, C diff PCR was negative. Her symptoms were attributed to inflammatory bowel disease. Since that time, the patient has had ongoing abdominal pain, although recently was thought to have recurrent C diff and was started on oral vancomycin October. Nonetheless, the patient and give the history that Dr. Armas felt that this may have been colonization with C diff. Two days prior to admission, she had even worsening abdominal pain and severe nausea, vomiting. She was having 10 bowel movements a day and subsequently she had none. She presented to the emergency room for further evaluation, where a CT scan showed intraperitoneal air, possibly a perforated diverticulitis, and inflamed and thickened small bowel. Patient went to the operating room later that night where it was found that she had initial serous fluid, but in the pelvic area there was purulence.. The area was washed out and sent for culture , was identified to have a sigmoid perforation about 4-5 mm and the sigmoid appeared viable. The patient underwent a repair of the colonic perforation and a drain was placed. Since surgery, patient has had a slight increase in her WBC, but has been afebrile. At the time of my exam today, she was admitting to feeling slightly improved, but then had one episode of coffee-ground emesis. PAST MEDICAL HISTORY: Allergic rhinitis, bronchitis, C diff colitis; first positive test 05/11/2016, cystocele, DVT, closed femur fracture, osteopenia, paroxysmal atrial fibrillation, and ulcerative colitis. PAST SURGICAL HISTORY: Positive for surgery as above, and hysterectomy, bilateral total hip and knee. SOCIAL HISTORY: She has 2 children. She is . She is originally from the [place], moved to the [place] in [place], no tobacco, and she is retired. She previously owned and ran a restaurant. FAMILY HISTORY: Reviewed and is negative. ALLERGIES: Rifaximin causes swelling. MEDICATIONS: Ertapenem 1 g IV daily, started 11/07/2016. Protonix, prednisone 30 mg, vancomycin 125 p.o. q.6, previously was on IV metronidazole from the to the , Lovenox and Cardizem as needed, and Lopressor 12.5 p.o. b.i.d. REVIEW OF SYSTEMS: A complete 10-point review of systems was performed and is negative, except as mentioned in HPI. PHYSICAL EXAMINATION: VITAL SIGNS: Blood pressure 117/77, heart rate 87, respiratory rate 17, saturation 93% on room air on 1 L, temperature 36.4, afebrile throughout her hospital course. GENERAL: This is an elderly woman, who is slightly confused, in no respiratory distress. HEENT: Surgical pupils bilaterally. Oropharynx: She only had teeth below, edentulous on the top. Dry mucous membranes. NECK: Supple. CARDIOVASCULAR: Regular rate, no murmurs. CHEST: Clear to auscultation bilaterally. ABDOMEN: Slightly distended. Decreased bowel sounds, but a couple of bowel sounds were detected. Minimal tenderness. Lower midline surgical incision healing well without erythema or drainage. Right lower quadrant TIKA drain with serosanguineous fluid. No Claros was in place. EXTREMITIES: Trace lower extremity edema. NEUROLOGIC: She is alert and oriented x4. Moving all 4 extremities equally. She is able to transfer to a chair with assist of 2 people. LABORATORY DATA: White count 15, hematocrit 28, platelets of 405. No diff was performed today. INR 2 on admission. Creatinine 0.8. Glucose 135, calcium 7.3 , AST 16, ALT 26, alkaline phosphatase 63, total protein 4.7, albumin 2.1. Intraoperative culture: Gram stain showed 2+ GNRs, 1+ GPCs. Culture showed 4+ E coli, 4+ Klebsiella. E coli susceptibilities were baker susceptible. Blood cultures were not obtained. ASSESSMENT AND PLAN: 76-year-old woman, on chronic steroids for inflammatory bowel disease, with a history of Clostridium difficile, who presents with bowel perforation, associated abscess, status post bowel repair with improving bowel function, persistent leukocytosis, and no fever. Cause of perforation is either inflammatory bowel disease vs diverticulitis. Generally, patient is improving. Current antibiotic therapy with ertapenem is reasonable, would agree with adding antifungal therapy in this chronically immune-suppressed patient. Assessment 1. Bowel perforation, polymicrobial abdominal abscess/peritonitis 2. History of Clostridium difficile with last positive Clostridium difficile test 11/01/2016, unclear if this is colonization, but while undergoing antibiotic pressure, it is reasonable to leave on vancomycin 3. Leukocytosis but no fever and abdominal exam improving, could consider UGI bleed as possible cause. (hematemesis at time of my visit) Recs 1. Decrease Vancomycin PO to 125mg to twice daily, as suspect it reflect colonization. 2. Add fluconazole 200mg for empiric coverage 3. Continue ertapenem for now for coverage of E coli, klebsiella and other GI staci including anaerobes. 4. Follow culture data and narrow antibiotics based on data 5. If continued worsening of wbc, may have to consider repeat imaging. Thank you for this consultation. We will continue to follow on a daily basis. /[id number]/MODL MTDD
[2016-11-11] MEDS: NS 1,000 ML IV SCH (03:13)
[2016-11-11] MEDS: ONDANSETRON 4 MG/2 ML VIAL IVP PRN ×2 (03:53→22:11)
[2016-11-11] MEDS: HYDROmorphONE/DILAUDID 1 MG/ML SYR IVP PRN ×2 (03:56→06:45)
[2016-11-11] MEDS: HYDROCORTISONE 100 MG/2 ML VIAL IVP SCH ×2 (05:36→14:23)
[2016-11-11] MEDS ORDERED: NS 500 ML IV ONE (06:27)
[2016-11-11] MEDS: PANTOPRAZOLE SODIUM 40 MG in NS 100 ML IV SCH (08:36)
[2016-11-11] MEDS: ERTAPENEM 1 GM in NS 100 ML IV SCH (08:39)
[2016-11-11] MEDS: FLUCONAZOLE/NaCl 100 ML IV SCH (08:39)
[2016-11-11] MEDS: ENOXAPARIN 40 MG/0.4 ML SYR SC SCH (08:44)
[2016-11-11] MEDS: VANCOMYCIN 125 MG/2.5 ML UDL PO SCH ×2 (08:44→22:11)
[2016-11-11] MEDS: FLUTICASONE/SALMETER 250/50MCG DISKUS IH SCH ×2 (08:45→20:40)
[2016-11-11] MEDS: METOPROLOL TARTRATE 25 MG TAB PO SCH ×2 (08:45→22:11)
[2016-11-11] MEDS ORDERED: CALCIUM CARBONATE 500 MG CHEWABLE TAB PO PRN (11:08)
--- NOTE | 2016-11-11 11:11 | SOAPPROG ---
SOAP Progress Note Assessment/Plan: Assessment: s/p ex-lap with oversew and drainage of abscess, stable to improving. Resume clears cautiously, cont TIKA/abx. Appreciate ID/IM consultations. Plan: 11/08/16 12:37 11/09/16 10:10 11/10/16 12:20 11/11/16 11:09 Subjective: Patient c/o incisional pain, improving. No N/V overnight. Wilmar water po. Objective: Vital Signs Temp Pulse Resp BP Pulse Ox 36.4 C 82 16 119/76 97 11/11/16 08:00 11/11/16 08:45 11/11/16 08:00 11/11/16 08:45 11/11/16 08:00 Microbiology 11/07/16 18:29 Gram Stain - Final Abdomen - Eswab Laboratory Results 11/10/16 04:37 11/10/16 04:37 11/10/16 11/11/16 11/12/16 05:59 05:59 05:59 Intake Total 3415 3303 Output Total 1045 920 Balance 2370 2383 PT 24.2 SEC (12.0-15.0) H 11/07/16 11:14 INR 2.15 (0.83-1.16) H 11/07/16 11:14 Alert, NAD Irreg Abd sot, inc TTP Inc C/D/I TIKA serous ICD10 Worksheet Patient Problems: Problems Problem Status Onset Intraperitoneal abscess Acute Small bowel perforation Acute Ulcerative colitis Acute Chronic bronchitis Active Fracture of lower leg Active History of - deep vein thrombosis Active C. difficile diarrhea Acute 11/01/16 Diverticulitis Acute Femur fracture Acute
[2016-11-11] MEDS ORDERED: KETOROLAC 15 MG/1 ML SDV IVP PRN (14:25)
--- NOTE | 2016-11-11 16:04 | HOSPPROG ---
Hospitalist Progress Note Assessment/Plan: 76 yo F w UC< recurrent cdiff, chronic steroids, bowel perf bowel perf: pod 2 s/p repair and washout e coli and klebsiella on peritoneal fluid on ertapenem blood cx of spikes given colon rupture and chronic steroids, suspect she will need fungal coverage ID added fluconazole recurrent cdiff: po vanc restarted dc flagyl unclear contribution to current situation continue po vanc while on broad spectrum abx h/o AF: in AF now restart po metoprolol received 1 dose IV diltiazem for rapid AF; rate now in 80's today's rapid AF 2/2 pt exertion h/o PE: high risk for VTE on enox chronic steroids: change back to po pred no longer needs stress dose steroids pain: prn IV dilaudid code: full Subjective: case d/w dr crowell. tele: af at 140 that corresponds to working w PT (interp by me) Objective: Vital Signs Temp Pulse Resp BP Pulse Ox 36.4 C 99 13 129/76 H 95 11/11/16 12:05 11/11/16 12:05 11/11/16 12:05 11/11/16 12:05 11/11/16 12:05 Microbiology 11/07/16 18:29 Gram Stain - Final Abdomen - Eswab Laboratory Results 11/10/16 04:37 11/10/16 04:37 11/10/16 11/11/16 11/12/16 05:59 05:59 05:59 Intake Total 3415 3303 Output Total 1045 920 Balance 2370 2383 PT 24.2 SEC (12.0-15.0) H 11/07/16 11:14 INR 2.15 (0.83-1.16) H 11/07/16 11:14 - Physical Exam Constitutional: no apparent distress, appears nourished Eyes: PERRL, anicteric sclera, EOMI Ears, Nose, Mouth, Throat: moist mucous membranes, hearing normal Cardiovascular: regular rate and rhythym, no murmur, rub, or gallop, tachycardia Respiratory: no respiratory distress, no rales or rhonchi Gastrointestinal: normoactive bowel sounds, soft, non-tender abdomen Genitourinary: No grande in urethra Skin: warm, normal color Musculoskeletal: full muscle strength Neurologic: AAOx3 ICD10 Worksheet Patient Problems: Problems Problem Status Onset Intraperitoneal abscess Acute Small bowel perforation Acute Ulcerative colitis Acute Chronic bronchitis Active Fracture of lower leg Active History of - deep vein thrombosis Active C. difficile diarrhea Acute 11/01/16 Diverticulitis Acute Femur fracture Acute
--- NOTE | 2016-11-11 17:25 | PCMIDPN ---
Assessment/Plan: Assessment/Plan: 1. Sigmoid perforation with Peritonitis/abscess: - s/p wash out on 11/07/16. - Cx wtih E.coli + Kleb. - Currently on invanz + fluconazole -continue with therapy. 2. Hx c. diff;- - on suppressive oral vanco Meds invanz fluconazole oral vanco Subjective: Afebrile. continues with abd pain. had vomiting yesterday but none today so far. no BM's since admission. on ice chips and water. Denies sob. Denies rash Objective: Vital Signs Temp Pulse Resp BP Pulse Ox 36.5 C 100 19 117/70 94 11/11/16 16:34 11/11/16 16:34 11/11/16 16:34 11/11/16 16:34 11/11/16 16:34 Microbiology 11/07/16 18:29 Gram Stain - Final Abdomen - Eswab Laboratory Results 11/10/16 04:37 11/10/16 04:37 11/10/16 11/11/16 11/12/16 05:59 05:59 05:59 Intake Total 3415 3303 400 Output Total 1045 920 Balance 2370 2383 400 - Physical Exam General Appearance: alert, no apparent distress Respiratory: lungs clear Cardiac/Chest: regular rate, rhythm Extremities: No swelling Abdomen: normal bowel sounds, soft, distended, tender Skin: No rash ICD10 Worksheet Patient Problems: Problems Problem Status Onset Intraperitoneal abscess Acute Small bowel perforation Acute Ulcerative colitis Acute Chronic bronchitis Active Fracture of lower leg Active History of - deep vein thrombosis Active C. difficile diarrhea Acute 11/01/16 Diverticulitis Acute Femur fracture Acute
[2016-11-12] MEDS: NS 1,000 ML IV SCH (00:43)
[2016-11-12] MEDS: HYDROmorphONE/DILAUDID 1 MG/ML SYR IVP PRN ×2 (00:49→14:51)
[2016-11-12] MEDS: traZODone 50 MG TAB PO PRN (03:33)
[2016-11-12 04:44] LABS: % IMMATURE GRANULYOCYTES 1.2 % (0.0-1.1); ABSOLUTE IMMATURE GRANULOCYTES 0.13 10^3/uL (0.00-0.10); ADD DIFF? NO; ADD MORPH? NO; ADD SCAN? NO; ATYPICAL LYMPHOCYTE FLAG 50 (0-99); FRAGMENT RBC FLAG 20 (0-99); HEMATOCRIT 23.9 % (38.0-47.0); HEMOGLOBIN 7.2 g/dL (12.6-16.3); LEFT SHIFT FLG 20 (0-99); LIPEMIA HEMOLYSIS FLAG 80 (0-99); MEAN CELL HEMOGLOBIN 25.2 pg (27.9-34.1); MEAN CELL HEMOGLOBIN CONCENTR. 30.1 g/dL (32.4-36.7); MEAN CELL VOLUME 83.6 fL (81.5-99.8); PLATELET CLUMPS FLAG 10 (0-99); PLATELET COUNT 358 10^3/uL (150-400); RED BLOOD CELL COUNT 2.86 10^6/uL (4.18-5.33); RED CELL DISTRIBUTION WIDTH 19.8 % (11.5-15.2)
[2016-11-12 05:03] LABS: ANION GAP 5 mEq/L (8-16); CALCIUM 6.8 mg/dL (8.5-10.4); CARBON DIOXIDE 20 mEq/l (22-31); CHLORIDE 115 mEq/L (97-110); CREATININE 0.8 mg/dL (0.6-1.0); GLOMERULAR FILTRATION RATE > 60; GLUCOSE 97 mg/dL (70-100); POTASSIUM 4.1 mEq/L (3.5-5.2); SODIUM 140 mEq/L (134-144)
[2016-11-12] MEDS: METOPROLOL TARTRATE 25 MG TAB PO SCH ×3 (08:58→20:43)
[2016-11-12] MEDS: predniSONE 10 MG TAB PO SCH (08:58)
[2016-11-12] MEDS: ENOXAPARIN 40 MG/0.4 ML SYR SC SCH (09:00)
[2016-11-12] MEDS: PANTOPRAZOLE SODIUM 40 MG in NS 100 ML IV SCH (09:01)
[2016-11-12] MEDS: FLUCONAZOLE/NaCl 100 ML IV SCH (09:01)
[2016-11-12] MEDS: ERTAPENEM 1 GM in NS 100 ML IV SCH (09:01)
[2016-11-12] MEDS: FLUTICASONE/SALMETER 250/50MCG DISKUS IH SCH ×2 (09:02→20:29)
[2016-11-12] MEDS: VANCOMYCIN 125 MG/2.5 ML UDL PO SCH ×2 (09:13→20:43)
--- NOTE | 2016-11-12 12:59 | SOAPPROG ---
SOAP Progress Note Assessment/Plan: Assessment: s/p ex-lap with oversew and drainage of abscess,improving. May be able to advance diet later as patient progresses. Cont PT/OT, cont abx. Plan: 11/08/16 12:37 11/09/16 10:10 11/10/16 12:20 11/11/16 11:09 11/12/16 12:57 Subjective: Patient feels slightly better, still some abd pain with moving. No N/V. Wilmar some po. +loose BM Objective: Vital Signs Temp Pulse Resp BP Pulse Ox 36.8 C 115 H 20 111/62 93 11/12/16 11:25 11/12/16 11:25 11/12/16 11:25 11/12/16 11:25 11/12/16 11:25 Laboratory Results 11/12/16 04:26 11/12/16 04:26 11/11/16 11/12/16 11/13/16 05:59 05:59 05:59 Intake Total 3303 3700 Output Total 920 1175 100 Balance 2383 2525 -100 PT 24.2 SEC (12.0-15.0) H 11/07/16 11:14 INR 2.15 (0.83-1.16) H 11/07/16 11:14 Alert, NAD Tachycardic Abd soft, inc TTP Inc C/D/I TIKA serous ICD10 Worksheet Patient Problems: Problems Problem Status Onset Intraperitoneal abscess Acute Small bowel perforation Acute Ulcerative colitis Acute Chronic bronchitis Active Fracture of lower leg Active History of - deep vein thrombosis Active C. difficile diarrhea Acute 11/01/16 Diverticulitis Acute Femur fracture Acute
--- NOTE | 2016-11-12 13:16 | HOSPPROG ---
Hospitalist Progress Note Assessment/Plan: 76 yo F w UC< recurrent cdiff, chronic steroids, bowel perf bowel perf: pod 4 s/p repair and washout e coli and klebsiella on peritoneal fluid on ertapenem blood cx of spikes given colon rupture and chronic steroids, suspect she will need fungal coverage ID added fluconazole recurrent cdiff: po vanc restarted dc flagyl unclear contribution to current situation continue po vanc while on broad spectrum abx had diarrhea followed by firm stool- follow h/o AF: in AF now increase lopressor to tid h/o PE: high risk for VTE on enox chronic steroids: change back to po pred no longer needs stress dose steroids pain: prn IV dilaudid code: full Subjective: case d/w dr crowell. tele (interp by me)- AF In low 100's Objective: Vital Signs Temp Pulse Resp BP Pulse Ox 36.8 C 115 H 20 111/62 93 11/12/16 11:25 11/12/16 11:25 11/12/16 11:25 11/12/16 11:25 11/12/16 11:25 Laboratory Results 11/12/16 04:26 11/12/16 04:26 11/11/16 11/12/16 11/13/16 05:59 05:59 05:59 Intake Total 3303 3700 Output Total 920 1175 100 Balance 2383 2525 -100 PT 24.2 SEC (12.0-15.0) H 11/07/16 11:14 INR 2.15 (0.83-1.16) H 11/07/16 11:14 - Physical Exam Constitutional: other (uncomfortable) Eyes: PERRL, anicteric sclera Ears, Nose, Mouth, Throat: moist mucous membranes, hearing normal Cardiovascular: no murmur, rub, or gallop, irregularly irregular, tachycardia, No systolic murmur Respiratory: no respiratory distress, no rales or rhonchi Gastrointestinal: soft, non-tender abdomen, other (hypoactive but present bowel sounds), No guarding, No rebound Genitourinary: No grande in urethra Skin: warm, normal color Musculoskeletal: full muscle strength, no muscle tenderness Neurologic: AAOx3, sensation intact bilaterally Psychiatric: interacting appropriately, not anxious ICD10 Worksheet Patient Problems: Problems Problem Status Onset Intraperitoneal abscess Acute Small bowel perforation Acute Ulcerative colitis Acute Chronic bronchitis Active Fracture of lower leg Active History of - deep vein thrombosis Active C. difficile diarrhea Acute 11/01/16 Diverticulitis Acute Femur fracture Acute
--- NOTE | 2016-11-12 16:17 | PCMIDPN ---
Assessment/Plan: Assessment/Plan: 1. Sigmoid perforation with Peritonitis/abscess: - s/p wash out on 11/07/16. - Cx wtih E.coli + Kleb. - Currently on invanz + fluconazole -wbc improved. afebrile. -if continues to have moderate abd pain, may need f/u imaging sooner to reevaluate. -continue with therapy. -updated patient, on labs 2. Hx c. diff;- - on suppressive oral vanco Meds invanz fluconazole oral vanco Subjective: Afebrile. pt tells me she didn't sleep at all last night. She continues to moderate abd pain. no vomiting. denies sob. Objective: Vital Signs Temp Pulse Resp BP Pulse Ox 36.8 C 115 H 20 111/62 93 11/12/16 11:25 11/12/16 14:52 11/12/16 11:25 11/12/16 14:52 11/12/16 11:25 Laboratory Results 11/12/16 04:26 11/12/16 04:26 11/11/16 11/12/16 11/13/16 05:59 05:59 05:59 Intake Total 3303 3700 Output Total 920 1175 100 Balance 2383 2525 -100 - Physical Exam General Appearance: alert, no apparent distress Respiratory: lungs clear Cardiac/Chest: regular rate, rhythm Extremities: No swelling Abdomen: normal bowel sounds, non-tender, soft, distended (mild) Skin: No rash ICD10 Worksheet Patient Problems: Problems Problem Status Onset Intraperitoneal abscess Acute Small bowel perforation Acute Ulcerative colitis Acute Chronic bronchitis Active Fracture of lower leg Active History of - deep vein thrombosis Active C. difficile diarrhea Acute 11/01/16 Diverticulitis Acute Femur fracture Acute
[2016-11-13 04:14] LABS: % IMMATURE GRANULYOCYTES 1.1 % (0.0-1.1); ABSOLUTE IMMATURE GRANULOCYTES 0.13 10^3/uL (0.00-0.10); ABSOLUTE NRBC COUNT 0.02 10^3/uL (0-0.01); ADD DIFF? NO; ADD MORPH? NO; ADD SCAN? YES; ATYPICAL LYMPHOCYTE FLAG 50 (0-99); FRAGMENT RBC FLAG 20 (0-99); HEMATOCRIT 23.7 % (38.0-47.0); HEMOGLOBIN 7.2 g/dL (12.6-16.3); LIPEMIA HEMOLYSIS FLAG 80 (0-99); MEAN CELL HEMOGLOBIN 25.3 pg (27.9-34.1); MEAN CELL HEMOGLOBIN CONCENTR. 30.4 g/dL (32.4-36.7); MEAN CELL VOLUME 83.2 fL (81.5-99.8); MEAN PLATELET VOLUME 8.8 fL (8.7-11.7); NRBC-AUTO% 0.2 % (0.0-0.2); PLATELET CLUMPS FLAG 0 (0-99); PLATELET COUNT 314 10^3/uL (150-400); RED BLOOD CELL COUNT 2.85 10^6/uL (4.18-5.33); RED CELL DISTRIBUTION WIDTH 19.9 % (11.5-15.2)
[2016-11-13 04:19] LABS: LEFT SHIFT FLG 130 (0-99)
[2016-11-13 04:43] LABS: ANION GAP 5 mEq/L (8-16); CALCIUM 6.9 mg/dL (8.5-10.4); CARBON DIOXIDE 20 mEq/l (22-31); CHLORIDE 113 mEq/L (97-110); CREATININE 0.7 mg/dL (0.6-1.0); GLOMERULAR FILTRATION RATE > 60; GLUCOSE 86 mg/dL (70-100); POTASSIUM 3.9 mEq/L (3.5-5.2); SODIUM 138 mEq/L (134-144)
[2016-11-13 05:02] LABS: SCAN NEGATIVE
[2016-11-13] MEDS: FLUTICASONE/SALMETER 250/50MCG DISKUS IH SCH ×2 (08:35→20:46)
[2016-11-13] MEDS: ERTAPENEM 1 GM in NS 100 ML IV SCH (09:03)
[2016-11-13] MEDS: HYDROmorphONE/DILAUDID 1 MG/ML SYR IVP PRN ×2 (09:08→21:05)
[2016-11-13] MEDS: predniSONE 10 MG TAB PO SCH (09:16)
[2016-11-13] MEDS: METOPROLOL TARTRATE 25 MG TAB PO SCH ×3 (09:16→21:06)
[2016-11-13] MEDS: VANCOMYCIN 125 MG/2.5 ML UDL PO SCH ×2 (09:19→21:06)
[2016-11-13] MEDS: ENOXAPARIN 40 MG/0.4 ML SYR SC SCH (09:21)
[2016-11-13] MEDS: ONDANSETRON 4 MG/2 ML VIAL IVP PRN (09:29)
[2016-11-13] MEDS: PANTOPRAZOLE SODIUM 40 MG in NS 100 ML IV SCH (10:32)
[2016-11-13] MEDS: FLUCONAZOLE/NaCl 100 ML IV SCH (11:23)
--- NOTE | 2016-11-13 11:27 | SOAPPROG ---
SOAP Progress Note Assessment/Plan: Assessment: Slow progress. Emesis seems to be related to pills as GI tract is working. No evidence of continued perforation. Plan: 11/08/16 12:37 11/09/16 10:10 11/10/16 12:20 11/11/16 11:09 11/12/16 12:57 11/13/16 11:25 Subjective: Patient with one emesis this AM after pills. No nausea. +diarrhea. Minimal ambulation with PT. Objective: Vital Signs Temp Pulse Resp BP Pulse Ox 36.6 C 113 H 20 107/57 L 97 11/13/16 07:12 11/13/16 08:36 11/13/16 08:36 11/13/16 07:12 11/13/16 08:36 Laboratory Results 11/13/16 04:06 11/13/16 04:06 11/12/16 11/13/16 11/14/16 05:59 05:59 05:59 Intake Total 3700 2596 Output Total 1175 175 385 Balance 2525 2421 -385 PT 24.2 SEC (12.0-15.0) H 11/07/16 11:14 INR 2.15 (0.83-1.16) H 11/07/16 11:14 Alert, NAD Irreg Abd soft, [employer] C/D/I TIKA serous. ICD10 Worksheet Patient Problems: Problems Problem Status Onset Intraperitoneal abscess Acute Small bowel perforation Acute Ulcerative colitis Acute Chronic bronchitis Active Fracture of lower leg Active History of - deep vein thrombosis Active C. difficile diarrhea Acute 11/01/16 Diverticulitis Acute Femur fracture Acute
--- NOTE | 2016-11-13 12:16 | HOSPPROG ---
Hospitalist Progress Note Assessment/Plan: 76 yo F w UC< recurrent cdiff, chronic steroids, bowel perf bowel perf: pod 6 s/p repair and washout e coli and klebsiella on peritoneal fluid on ertapenem/fluconazole blood cx of spikes recurrent cdiff: po vanc restarted dc flagyl unclear contribution to current situation continue po vanc while on broad spectrum abx had diarrhea followed by firm stool- follow h/o AF: in AF now increase lopressor to tid anemia: acute blood loss may benefit from transfusion i have called Dr. Diaz, waiting to hear back h/o PE: high risk for VTE on enox chronic steroids: change back to po pred no longer needs stress dose steroids pain: prn IV dilaudid code: full Subjective: case d/w dr diaz. tele: af in low 100's- interp by me) Objective: Vital Signs Temp Pulse Resp BP Pulse Ox 36.6 C 113 H 20 107/57 L 97 11/13/16 07:12 11/13/16 08:36 11/13/16 08:36 11/13/16 07:12 11/13/16 08:36 Laboratory Results 11/13/16 04:06 11/13/16 04:06 11/12/16 11/13/16 11/14/16 05:59 05:59 05:59 Intake Total 3700 2596 Output Total 1175 175 385 Balance 2525 2421 -385 PT 24.2 SEC (12.0-15.0) H 11/07/16 11:14 INR 2.15 (0.83-1.16) H 11/07/16 11:14 - Physical Exam Constitutional: no apparent distress, appears nourished Eyes: PERRL, anicteric sclera Ears, Nose, Mouth, Throat: moist mucous membranes, hearing normal Cardiovascular: no murmur, rub, or gallop, irregularly irregular, tachycardia Respiratory: no respiratory distress, no rales or rhonchi Gastrointestinal: No normoactive bowel sounds, No guarding, No rebound Genitourinary: No grande in urethra Skin: warm, normal color Musculoskeletal: full muscle strength Neurologic: AAOx3, sensation intact bilaterally Psychiatric: interacting appropriately, not anxious ICD10 Worksheet Patient Problems: Problems Problem Status Onset Intraperitoneal abscess Acute Small bowel perforation Acute Ulcerative colitis Acute Chronic bronchitis Active Fracture of lower leg Active History of - deep vein thrombosis Active C. difficile diarrhea Acute 11/01/16 Diverticulitis Acute Femur fracture Acute
[2016-11-13] MEDS: MENTHOL/CAMPHOR 222 ML BOTTLE TP SCH (16:22)
[2016-11-13] MEDS: MICAFUNGIN NA 100 MG in NS 100 ML IV SCH (17:09)
--- NOTE | 2016-11-13 17:42 | PCMIDPN ---
Assessment/Plan: Assessment/Plan: * Polymicrobial peritonitis due to sigmoid perforation status post incision and drainage/perforation closure: Cultures with polymicrobial enteric staci including E coli and Klebsiella. Cultures now also showing growth of yeast. Continue ertapenem pending Klebsiella susceptibility. Will change fluconazole to micafungin until additional information available regarding yeast. * History of C difficile colitis: Continue suppressive oral vancomycin while on broad-spectrum antibiotic therapy. 11/13/16 17:39 11/13/16 17:44 Subjective: Patient without significant diarrhea. Right lower quadrant pain present this a.m.. Mild nausea which has been relieved by use of 7 Up. Objective: Vital Signs Temp Pulse Resp BP Pulse Ox 36.6 C 104 H 22 H 103/67 95 11/13/16 15:36 11/13/16 15:36 11/13/16 15:36 11/13/16 15:36 11/13/16 15:36 Microbiology 11/07/16 18:29 Gram Stain - Final Abdomen - Eswab Laboratory Results 11/13/16 04:06 11/13/16 04:06 11/12/16 11/13/16 11/14/16 05:59 05:59 05:59 Intake Total 3700 2596 315 Output Total 1175 175 405 Balance 2525 2421 -90 Ertapenem # 6 Fluconazole # 4 p.o. vancomycin suppression Abdominal cultures with growth of E coli and Klebsiella Fungal cultures yeast - Physical Exam General Appearance: alert, no apparent distress EENT: pharynx normal, No scleral icterus Respiratory: No respiratory distress Cardiac/Chest: tachycardia Extremities: pedal edema Abdomen: non-tender, other (TIKA bulb with serous output; incision intact without erythema or drainage), No distended ICD10 Worksheet Patient Problems: Problems Problem Status Onset Intraperitoneal abscess Acute Small bowel perforation Acute Ulcerative colitis Acute Chronic bronchitis Active Fracture of lower leg Active History of - deep vein thrombosis Active C. difficile diarrhea Acute 11/01/16 Diverticulitis Acute Femur fracture Acute
[2016-11-13] MEDS: traZODone 50 MG TAB PO PRN (21:05)
[2016-11-14 04:13] LABS: % IMMATURE GRANULYOCYTES 1.3 % (0.0-1.1); ABSOLUTE IMMATURE GRANULOCYTES 0.15 10^3/uL (0.00-0.10); ABSOLUTE NRBC COUNT 0.02 10^3/uL (0-0.01); ADD DIFF? NO; ADD MORPH? NO; ADD SCAN? NO; ATYPICAL LYMPHOCYTE FLAG 20 (0-99); FRAGMENT RBC FLAG 20 (0-99); HEMATOCRIT 26.7 % (38.0-47.0); HEMOGLOBIN 8.2 g/dL (12.6-16.3); LEFT SHIFT FLG 50 (0-99); LIPEMIA HEMOLYSIS FLAG 80 (0-99); MEAN CELL HEMOGLOBIN 25.8 pg (27.9-34.1); MEAN CELL HEMOGLOBIN CONCENTR. 30.7 g/dL (32.4-36.7); MEAN PLATELET VOLUME 9.2 fL (8.7-11.7); NRBC-AUTO% 0.2 % (0.0-0.2); PLATELET CLUMPS FLAG 20 (0-99); PLATELET COUNT 298 10^3/uL (150-400); RED BLOOD CELL COUNT 3.18 10^6/uL (4.18-5.33); RED CELL DISTRIBUTION WIDTH 19.7 % (11.5-15.2)
[2016-11-14] MEDS: NS 1,000 ML IV SCH (04:19)
[2016-11-14] MEDS: HYDROmorphONE/DILAUDID 1 MG/ML SYR IVP PRN ×2 (09:04→21:23)
[2016-11-14] MEDS: VANCOMYCIN 125 MG/2.5 ML UDL PO SCH ×2 (09:16→21:23)
[2016-11-14] MEDS: METOPROLOL TARTRATE 25 MG TAB PO SCH ×3 (09:17→21:29)
[2016-11-14] MEDS: predniSONE 10 MG TAB PO SCH (09:17)
[2016-11-14] MEDS: ENOXAPARIN 40 MG/0.4 ML SYR SC SCH (09:19)
[2016-11-14] MEDS: MENTHOL/CAMPHOR 222 ML BOTTLE TP SCH (09:26)
[2016-11-14] MEDS: FLUTICASONE/SALMETER 250/50MCG DISKUS IH SCH ×2 (09:32→20:18)
[2016-11-14] MEDS: MICAFUNGIN NA 100 MG in NS 100 ML IV SCH (09:34)
[2016-11-14] MEDS: ERTAPENEM 1 GM in NS 100 ML IV SCH (09:36)
[2016-11-14] MEDS: PANTOPRAZOLE SODIUM 40 MG TAB PO SCH (09:38)
[2016-11-14] MEDS: PANTOPRAZOLE SODIUM 40 MG in NS 100 ML IV SCH (10:48)
--- NOTE | 2016-11-14 13:51 | SOAPPROG ---
SOAP Progress Note Assessment/Plan: Assessment: Improving. Cont po, PT/OT. Plan: 11/08/16 12:37 11/09/16 10:10 11/10/16 12:20 11/11/16 11:09 11/12/16 12:57 11/13/16 11:25 11/14/16 13:49 Subjective: Pain improved. Wilmar po without emesis. Objective: Vital Signs Temp Pulse Resp BP Pulse Ox 36.5 C 104 H 20 104/72 96 11/14/16 11:32 11/14/16 11:32 11/14/16 11:32 11/14/16 11:32 11/14/16 11:32 Microbiology 11/07/16 18:29 Gram Stain - Final Abdomen - Eswab Anaerobic Culture - Final Escherichia Coli Klebsiella Pneumoniae Laboratory Results 11/14/16 03:36 11/13/16 04:06 11/13/16 11/14/16 11/15/16 05:59 05:59 05:59 Intake Total 2596 2415 200 Output Total 175 861 80 Balance 2421 1554 120 PT 24.2 SEC (12.0-15.0) H 11/07/16 11:14 INR 2.15 (0.83-1.16) H 11/07/16 11:14 Alert, NAD Irreg Abd soft, NTTP Inc C/D/I TIKA serous ICD10 Worksheet Patient Problems: Problems Problem Status Onset Intraperitoneal abscess Acute Small bowel perforation Acute Ulcerative colitis Acute Chronic bronchitis Active Fracture of lower leg Active History of - deep vein thrombosis Active C. difficile diarrhea Acute 11/01/16 Diverticulitis Acute Femur fracture Acute
[2016-11-14] MEDS ORDERED: FUROSEMIDE 20 MG/2 ML VIAL IVP ONE (15:49)
--- NOTE | 2016-11-14 15:49 | HOSPPROG ---
Hospitalist Progress Note Assessment/Plan: 76 yo F w UC< recurrent cdiff, chronic steroids, bowel perf, now w edema edema: suspect vol overload received 2 units yesterday give lasix 20 IV x 1 now bowel perf: pod 8 s/p repair and washout e coli and klebsiella on peritoneal fluid on ertapenem/fluconazole blood cx of spikes recurrent cdiff: po vanc restarted dc flagyl unclear contribution to current situation continue po vanc while on broad spectrum abx had diarrhea followed by firm stool- follow h/o AF: in AF now increase lopressor to tid anemia: acute blood loss may benefit from transfusion i have called Dr. Diaz, waiting to hear back h/o PE: high risk for VTE on enox chronic steroids: change back to po pred no longer needs stress dose steroids pain: prn IV dilaudid code: full Subjective: case d/w dr snyder. tele AF, less rapid (interp by me) Objective: Vital Signs Temp Pulse Resp BP Pulse Ox 36.5 C 104 H 20 104/72 96 11/14/16 11:32 11/14/16 11:32 11/14/16 11:32 11/14/16 11:32 11/14/16 11:32 Microbiology 11/07/16 18:29 Gram Stain - Final Abdomen - Eswab Laboratory Results 11/14/16 03:36 11/13/16 04:06 11/13/16 11/14/16 11/15/16 05:59 05:59 05:59 Intake Total 2596 2415 200 Output Total 175 861 80 Balance 2421 1554 120 PT 24.2 SEC (12.0-15.0) H 11/07/16 11:14 INR 2.15 (0.83-1.16) H 11/07/16 11:14 - Physical Exam Constitutional: no apparent distress, appears nourished Eyes: PERRL, anicteric sclera Ears, Nose, Mouth, Throat: moist mucous membranes, hearing normal Cardiovascular: regular rate and rhythym, no murmur, rub, or gallop, edema Respiratory: no respiratory distress, no rales or rhonchi Gastrointestinal: normoactive bowel sounds, soft, non-tender abdomen Genitourinary: No grande in urethra Skin: warm, normal color Musculoskeletal: full muscle strength Neurologic: AAOx3 ICD10 Worksheet Patient Problems: Problems Problem Status Onset Intraperitoneal abscess Acute Small bowel perforation Acute Ulcerative colitis Acute Chronic bronchitis Active Fracture of lower leg Active History of - deep vein thrombosis Active C. difficile diarrhea Acute 11/01/16 Diverticulitis Acute Femur fracture Acute
[2016-11-14] MEDS ORDERED: ALTEPLASE 2 MG VIAL IVP PRN (15:50)
--- NOTE | 2016-11-14 16:49 | PCMIDPN ---
Assessment/Plan: Assessment/Plan: * Polymicrobial peritonitis due to sigmoid perforation status post incision and drainage/perforation closure: Cultures with polymicrobial enteric staci including E coli and Klebsiella. Have asked lab to assess Klebsiella susceptibility. Continue ertapenem and micafungin. Anticipate 2 week course of therapy post washout and perforation closure (11/22/2016). Will place PICC line. This was discussed with patient and today. * History of C difficile colitis: Continue suppressive oral vancomycin while on broad-spectrum antibiotic therapy. No active diarrhea. 11/14/16 16:47 11/14/16 16:49 Subjective: Patient without diarrhea. Complains of episodic abdominal cramps. Tolerating some oral intake. Objective: Vital Signs Temp Pulse Resp BP Pulse Ox 36.6 C 83 22 H 119/80 95 11/14/16 16:31 11/14/16 16:31 11/14/16 16:31 11/14/16 16:31 11/14/16 16:31 Microbiology 11/07/16 18:29 Gram Stain - Final Abdomen - Eswab Laboratory Results 11/14/16 03:36 11/13/16 04:06 11/13/16 11/14/16 11/15/16 05:59 05:59 05:59 Intake Total 2596 2415 200 Output Total 175 861 80 Balance 2421 1554 120 Ertapenem # 7 Micafungin # 2 (anti fungal # 5) - Physical Exam General Appearance: alert, no apparent distress EENT: No scleral icterus Extremities: pedal edema Abdomen: non-tender, distended (Mild), other (Incision intact without erythema or drainage; minimal serous output in TIKA bulb) ICD10 Worksheet Patient Problems: Problems Problem Status Onset Intraperitoneal abscess Acute Small bowel perforation Acute Ulcerative colitis Acute Chronic bronchitis Active Fracture of lower leg Active History of - deep vein thrombosis Active C. difficile diarrhea Acute 11/01/16 Diverticulitis Acute Femur fracture Acute
[2016-11-15] MEDS: FLUTICASONE/SALMETER 250/50MCG DISKUS IH SCH ×2 (08:13→21:41)
--- NOTE | 2016-11-15 09:47 | SOAPPROG ---
SOAP Progress Note Assessment/Plan: Assessment: Stable; will continue to monitor TIKA OP and cont reg diet for now. Plan: 11/08/16 12:37 11/09/16 10:10 11/10/16 12:20 11/11/16 11:09 11/12/16 12:57 11/13/16 11:25 11/14/16 13:49 11/15/16 09:45 Subjective: No new complaints, amb with assist. Wilmar some po, + BM without diarrhea. Objective: Vital Signs Temp Pulse Resp BP Pulse Ox 36.7 C 91 16 120/77 92 11/15/16 07:39 11/15/16 08:21 11/15/16 08:21 11/15/16 07:39 11/15/16 07:39 Microbiology 11/07/16 18:29 Gram Stain - Final Abdomen - Eswab Laboratory Results 11/14/16 03:36 11/13/16 04:06 11/14/16 11/15/16 11/16/16 05:59 05:59 05:59 Intake Total 2415 600 Output Total 861 630 Balance 1554 -30 PT 24.2 SEC (12.0-15.0) H 11/07/16 11:14 INR 2.15 (0.83-1.16) H 11/07/16 11:14 Alert, NAD Irreg Abd soft, NTTP [employer] C/D/I TIKA cloudy ICD10 Worksheet Patient Problems: Problems Problem Status Onset Intraperitoneal abscess Acute Small bowel perforation Acute Ulcerative colitis Acute Chronic bronchitis Active Fracture of lower leg Active History of - deep vein thrombosis Active C. difficile diarrhea Acute 11/01/16 Diverticulitis Acute Femur fracture Acute
[2016-11-15] MEDS: PANTOPRAZOLE SODIUM 40 MG TAB PO SCH (10:20)
[2016-11-15] MEDS: METOPROLOL TARTRATE 25 MG TAB PO SCH ×3 (10:20→21:55)
[2016-11-15] MEDS: predniSONE 10 MG TAB PO SCH (10:20)
[2016-11-15] MEDS: ERTAPENEM 1 GM in NS 100 ML IV SCH (10:28)
[2016-11-15] MEDS: VANCOMYCIN 125 MG/2.5 ML UDL PO SCH ×2 (10:29→21:55)
[2016-11-15] MEDS: ENOXAPARIN 40 MG/0.4 ML SYR SC SCH (10:29)
[2016-11-15] MEDS: MENTHOL/CAMPHOR 222 ML BOTTLE TP SCH (10:31)
[2016-11-15] MEDS: MICAFUNGIN NA 100 MG in NS 100 ML IV SCH ×2 (10:35→15:15)
[2016-11-15] MEDS: oxyCODONE IR 5 MG TAB PO PRN (12:47)
--- NOTE | 2016-11-15 13:48 | HOSPPROG ---
Hospitalist Progress Note Assessment/Plan: 76 yo F w UC, recurrent cdiff, chronic steroids, bowel perf, now w edema edema: persists, suspect vol overload, 20 kg up since admission. -start oral lasix, monitor I&O's, daily weights -follow bmp while starting diuresis bowel perf: pod 9 s/p repair and washout per Dr. Diaz e coli and klebsiella on peritoneal fluid on ertapenem/fluconazole, ID following blood cx if spikes recurrent c diff: cont po vanc while on broad spectrum atbx unclear contribution to current situation h/o AF: in AF now, rate controlled on metoprolol. Chads-vasc 5. She is not anti-coagulated, discussed with surgery, okay to resume AC. -restart Xarelto anemia: acute blood loss ronnell-operatively, s/p 1 u prbc's, hgb stable, follow h/o recurrent DVT and PE: resume Xarelto Ulcerative colitis on chronic steroids: cont outpt oral prednisone dose pain: prn IV dilaudid code: full dispo: cont inpt, possible dc to SNF per surgery Subjective: Pt feels well. Still has LE edema. No CP or SOB. No abdominal pain. Eating well, good appetite, still poor mobility. Objective: Vital Signs Temp Pulse Resp BP Pulse Ox 36.4 C 107 H 20 126/91 H 95 11/15/16 11:55 11/15/16 11:55 11/15/16 11:55 11/15/16 11:55 11/15/16 11:55 Microbiology 11/07/16 18:29 Gram Stain - Final Abdomen - Eswab Laboratory Results 11/14/16 03:36 11/13/16 04:06 11/14/16 11/15/16 11/16/16 05:59 05:59 05:59 Intake Total 2415 600 Output Total 861 630 Balance 1554 -30 PT 24.2 SEC (12.0-15.0) H 11/07/16 11:14 INR 2.15 (0.83-1.16) H 11/07/16 11:14 - Physical Exam Constitutional: no apparent distress Eyes: PERRL Ears, Nose, Mouth, Throat: moist mucous membranes Cardiovascular: regular rate and rhythym Respiratory: no respiratory distress, clear to auscultation Gastrointestinal: normoactive bowel sounds, soft, non-tender abdomen Skin: warm Musculoskeletal: other (1-2+ b/l LE edema) Neurologic: AAOx3 Psychiatric: interacting appropriately ICD10 Worksheet Patient Problems: Problems Problem Status Onset Small bowel perforation Acute Intraperitoneal abscess Acute Ulcerative colitis Acute History of - deep vein thrombosis Active Chronic bronchitis Active Fracture of lower leg Active Diverticulitis Acute Femur fracture Acute C. difficile diarrhea Acute 11/01/16
[2016-11-15] MEDS: FUROSEMIDE 20 MG TAB PO SCH (15:14)
--- NOTE | 2016-11-15 17:51 | PCMIDPN ---
Assessment/Plan: #Sigmoid perforation with peritonitis/abscess s/p repair and washout; TIKA drainage with dramatic change > now looks like stool . AF, Wbc still slightly elevated, BP/HR stable --CT Scan now, discussed with radiology, notified Dr. Diaz --NPO --continue current antibiotics, awaiting klebsiella sensi --duration of antibiotic therapy unclear at this point with new drainage findings/unclear if source control # H/O Cdiff, known peristent colonization --vanco PO suppression 125mg PO BID meds ertapenem 1gm IV daily, #8 micafungin 100mg IV daily #2 Pred 30 mg daily microbiology 11/07 peritoneal cx : Klebsiella, S-pending; E coli Rowe-S, non aubrey albicans Subjective: feel very weak. Abdominal pain only improved with pain meds +incontinent of bowel and urine, patient attributes to weakness, inability to get up fast enough Objective: Vital Signs Temp Pulse Resp BP Pulse Ox 36.6 C 99 14 119/73 92 11/15/16 16:00 11/15/16 17:25 11/15/16 16:00 11/15/16 17:25 11/15/16 16:00 Microbiology 11/07/16 18:29 Gram Stain - Final Abdomen - Eswab Laboratory Results 11/14/16 03:36 11/13/16 04:06 11/14/16 11/15/16 11/16/16 05:59 05:59 05:59 Intake Total 2415 600 Output Total 861 630 Balance 1554 -30 - Physical Exam General Appearance: alert, obese, non-toxic EENT: pale conjunctiva Respiratory: other (shallow inspiration, decreased bs bases) Cardiac/Chest: regular rate, rhythm Extremities: pedal edema (3+) Abdomen: soft, distended, peritoneal signs, other (bowel sound present, midline scar without drainage or redness; R TIKA drain with stool in bulb) Pelvic Exam: No grande Skin: warm/dry, pallor, No rash Neuro/Psych: alert, normal mood/affect, oriented x 3 - Line/s RUE PICC Lines: No drainage, No erythema - Time Spent With Patient Time Spent with Patient: greater than 35 minutes Time Spent with Patient: Greater than 35 minutes spent on this patients care, greater than 50% of time spent counseling, educating, and coordinating care regarding the above mentioned plan. ICD10 Worksheet Patient Problems: Problems Problem Status Onset Intraperitoneal abscess Acute Small bowel perforation Acute Ulcerative colitis Acute Chronic bronchitis Active Fracture of lower leg Active History of - deep vein thrombosis Active C. difficile diarrhea Acute 11/01/16 Diverticulitis Acute Femur fracture Acute
[2016-11-15] MEDS ORDERED: RIVAROXABAN 20 MG TAB PO SCH (18:00)
[2016-11-15] MEDS ORDERED: IOPAMIDOL (ISOVUE-300) 100 ML BTL IV ONE (19:45)
[2016-11-16 05:48] LABS: ABSOLUTE NRBC COUNT 0.05 10^3/uL (0-0.01); ADD DIFF? YES; ADD SCAN? NO; ATYPICAL LYMPHOCYTE FLAG 30 (0-99); FRAGMENT RBC FLAG 20 (0-99); HEMATOCRIT 28.1 % (38.0-47.0); HEMOGLOBIN 8.6 g/dL (12.6-16.3); LEFT SHIFT FLG 90 (0-99); LIPEMIA HEMOLYSIS FLAG 80 (0-99); MEAN CELL HEMOGLOBIN 26.1 pg (27.9-34.1); MEAN CELL HEMOGLOBIN CONCENTR. 30.6 g/dL (32.4-36.7); MEAN CELL VOLUME 85.2 fL (81.5-99.8); MEAN PLATELET VOLUME 9.4 fL (8.7-11.7); NRBC-AUTO% 0.4 % (0.0-0.2); PLATELET CLUMPS FLAG 10 (0-99); PLATELET COUNT 303 10^3/uL (150-400)
[2016-11-16 05:50] LABS: ADD MORPH? NO; RED CELL DISTRIBUTION WIDTH 20.4 % (11.5-15.2)
[2016-11-16 06:21] LABS: ANION GAP 7 mEq/L (8-16); CALCIUM 7.9 mg/dL (8.5-10.4); CARBON DIOXIDE 24 mEq/l (22-31); CHLORIDE 108 mEq/L (97-110); CREATININE 0.7 mg/dL (0.6-1.0); GLOMERULAR FILTRATION RATE > 60; GLUCOSE 109 mg/dL (70-100); SODIUM 139 mEq/L (134-144)
[2016-11-16 06:36] LABS: PLATELET ESTIMATE ADEQUATE (ADEQ)
[2016-11-16 06:39] LABS: HYPOCHROMIA 1+; POLYCHROMASIA 1+
[2016-11-16] MEDS: ERTAPENEM 1 GM in NS 100 ML IV SCH (08:52)
[2016-11-16] MEDS: FUROSEMIDE 20 MG TAB PO SCH (08:53)
[2016-11-16] MEDS: METOPROLOL TARTRATE 25 MG TAB PO SCH ×3 (08:53→21:50)
[2016-11-16] MEDS: predniSONE 10 MG TAB PO SCH ×2 (08:53→08:59)
[2016-11-16] MEDS: VANCOMYCIN 125 MG/2.5 ML UDL PO SCH ×2 (08:53→21:40)
[2016-11-16] MEDS: PANTOPRAZOLE SODIUM 40 MG TAB PO SCH (08:53)
[2016-11-16] MEDS: MENTHOL/CAMPHOR 222 ML BOTTLE TP SCH (08:55)
[2016-11-16] MEDS: oxyCODONE IR 5 MG TAB PO PRN (09:18)
[2016-11-16] MEDS: MICAFUNGIN NA 100 MG in NS 100 ML IV SCH (10:07)
[2016-11-16] MEDS: FLUTICASONE/SALMETER 250/50MCG DISKUS IH SCH ×2 (10:13→21:12)
--- NOTE | 2016-11-16 11:14 | SOAPPROG ---
SOAP Progress Note Assessment/Plan: Assessment: Perforation re-opened, appears controlled for now. Options d/w patient and including resection/ostomy vs. TPN, abx, drainage. Will need to wean steroids, d/w GI and IM. Questions answered. Plan: 11/08/16 12:37 11/09/16 10:10 11/10/16 12:20 11/11/16 11:09 11/12/16 12:57 11/13/16 11:25 11/14/16 13:49 11/15/16 09:45 11/16/16 11:12 Subjective: Patient with some nausea. Pain unchanged. Objective: Vital Signs Temp Pulse Resp BP Pulse Ox 36.7 C 96 18 120/85 H 92 11/16/16 10:51 11/16/16 10:51 11/16/16 10:51 11/16/16 10:51 11/16/16 10:51 Microbiology 11/07/16 18:29 Gram Stain - Final Abdomen - Eswab Laboratory Results 11/16/16 05:30 11/16/16 05:30 11/15/16 11/16/16 11/17/16 05:59 05:59 05:59 Intake Total 600 200 Output Total 630 60 Balance -30 140 PT 24.2 SEC (12.0-15.0) H 11/07/16 11:14 INR 2.15 (0.83-1.16) H 11/07/16 11:14 Alert, NAD Irreg Abd soft, NTTP inc C/D/I TIKA thin stool. ICD10 Worksheet Patient Problems: Problems Problem Status Onset Intraperitoneal abscess Acute Small bowel perforation Acute Ulcerative colitis Acute Chronic bronchitis Active Fracture of lower leg Active History of - deep vein thrombosis Active C. difficile diarrhea Acute 11/01/16 Diverticulitis Acute Femur fracture Acute
--- NOTE | 2016-11-16 11:36 | HOSPPROG ---
Hospitalist Progress Note Assessment/Plan: 76 yo F w UC, recurrent cdiff, chronic steroids, bowel perf, now w edema bowel perf: pod 10 s/p repair and washout per Dr. Diaz, now with recurrent leak, ID noticed stool in TIKA drain and CT confirmed leak. May require colon resection. Afebrile, hemodynamically stable. e coli and klebsiella on peritoneal fluid on ertapenem/fluconazole, ID following blood cx if spikes edema: persists, suspect vol overload, 20 kg up since admission. Weight up with initiation of oral Lasix yesterday. -check LE duplex to r/o DVT given hx and post-op state -IV Lasix today -monitor I&O's, daily weights -follow bmp while diuresing recurrent c diff: cont po vanc while on broad spectrum atbx unclear contribution to current situation A fib: rate controlled on metoprolol. Chads-vasc 5. Resumed Xarelto yesterday , though now with new colon leak and possible need for operative intervention. 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 -LE duplex Ulcerative colitis on chronic steroids: wean oral prednisone to 20 mg from 30 mg daily to help with healing, will discuss with GI pain: prn IV dilaudid code: full dvt pplx: SCD's for now, will discuss lovenox with surgery given possible need for operative intervention dispo: cont inpt Subjective: Pt feels hopeless, wants to give up. Worried about another possible big surgery. Pain a little worse today. More nausea. No fevers. Objective: Vital Signs Temp Pulse Resp BP Pulse Ox 36.7 C 96 18 120/85 H 92 11/16/16 10:51 11/16/16 10:51 11/16/16 10:51 11/16/16 10:51 11/16/16 10:51 Microbiology 11/07/16 18:29 Gram Stain - Final Abdomen - Eswab Laboratory Results 11/16/16 05:30 11/16/16 05:30 11/15/16 11/16/16 11/17/16 05:59 05:59 05:59 Intake Total 600 200 Output Total 630 60 Balance -30 140 PT 24.2 SEC (12.0-15.0) H 11/07/16 11:14 INR 2.15 (0.83-1.16) H 11/07/16 11:14 - Physical Exam Constitutional: no apparent distress Eyes: PERRL Ears, Nose, Mouth, Throat: moist mucous membranes Cardiovascular: regular rate and rhythym, irregularly irregular Respiratory: no respiratory distress, clear to auscultation Gastrointestinal: other (soft, mild distention, minimal tenderness without r/r/g , +hypoactive BS) Skin: warm Musculoskeletal: other (2-3+ b/l pitting LE edema) Neurologic: AAOx3 Psychiatric: interacting appropriately ICD10 Worksheet Patient Problems: Problems Problem Status Onset Intraperitoneal abscess Acute Small bowel perforation Acute Ulcerative colitis Acute Chronic bronchitis Active Fracture of lower leg Active History of - deep vein thrombosis Active C. difficile diarrhea Acute 11/01/16 Diverticulitis Acute Femur fracture Acute
[2016-11-16] MEDS ORDERED: D10W 1,000 ML IV PRN (12:49)
[2016-11-16] MEDS: FUROSEMIDE 20 MG/2 ML VIAL IVP SCH (12:55)
[2016-11-16] MEDS: ENOXAPARIN 40 MG/0.4 ML SYR SC SCH (15:14)
--- NOTE | 2016-11-16 16:32 | PCMIDPN ---
Assessment/Plan: Assessment: peritonitis after sigmoid perforation in patient with underlying ulcerative colitis. Recent C. diff colitis and exterminator termite steroid use likely contributed to the weakening of the colon wall. Initial repair surgically appears to have failed with radiographic read on CT yesterday of renewed leak at the sigmoid colon. Patient is quite depressed at the moment and complains of ongoing cramping pain. Current plan is to continue antibiotic treatment and have bowel rest with TPN. However she is continuing to have diarrhea per her RN today. She continues on ertapenem, micafungin and BID PO vanco (due to high risk of c. diff colitis recurrence on her broad spectrum antibiotics.) Will continue current regimen although I am not assured that with this patients age, UC and underlying steroid use that she will be able to heal the colon tear without sigmoidectomy and ostomy placement -- although admittedly this procedure would also be high-risk. Discussed case briefly with Dr. Diaz. Plan: 1) Continue current antibiotic regimen. 2) Follow clinical course. 3) Follow drain output. If this continues to show scot feculent material, then washout and sigmoidectomy may need to be reconsidered unless patient opts for comfort measures. Subjective: Patient is resting in her bed. She is uncomfortable. Complains of abdominal cramping and diarrhea. Depressed. Speaks of dying. Objective: ertapenem # 9 micafungin # 3 po Vancomycin Vital Signs Temp Pulse Resp BP Pulse Ox 36.3 C 99 20 123/77 H 93 11/16/16 15:32 11/16/16 15:32 11/16/16 15:32 11/16/16 15:32 11/16/16 15:32 Microbiology 11/07/16 18:29 Gram Stain - Final Abdomen - Eswab Laboratory Results 11/16/16 05:30 11/16/16 05:30 11/15/16 11/16/16 11/17/16 05:59 05:59 05:59 Intake Total 600 200 200 Output Total 630 60 280 Balance -30 140 -80 - Physical Exam General Appearance: WD/WN, alert, apparent distress, toxic Respiratory: lungs clear, normal breath sounds, respiratory distress Cardiac/Chest: regular rate, rhythm, tachycardia Extremities: non-tender, normal inspection Abdomen: soft, distended, tender, No mass Skin: normal color, warm/dry, No rash Neuro/Psych: alert, oriented x 3, No normal mood/affect ICD10 Worksheet Patient Problems: Problems Problem Status Onset Intraperitoneal abscess Acute Small bowel perforation Acute Ulcerative colitis Acute Chronic bronchitis Active Fracture of lower leg Active History of - deep vein thrombosis Active C. difficile diarrhea Acute 11/01/16 Diverticulitis Acute Femur fracture Acute
[2016-11-16 17:18] LABS: ABSOLUTE NRBC COUNT 0.04 10^3/uL (0-0.01); ADD DIFF? YES; ATYPICAL LYMPHOCYTE FLAG 40 (0-99); FRAGMENT RBC FLAG 20 (0-99); HEMATOCRIT 29.7 % (38.0-47.0); HEMOGLOBIN 9.2 g/dL (12.6-16.3); LIPEMIA HEMOLYSIS FLAG 80 (0-99); MEAN CELL HEMOGLOBIN 25.6 pg (27.9-34.1); MEAN CELL VOLUME 82.7 fL (81.5-99.8); MEAN PLATELET VOLUME 9.1 fL (8.7-11.7); NRBC-AUTO% 0.3 % (0.0-0.2); PLATELET CLUMPS FLAG 10 (0-99); PLATELET COUNT 309 10^3/uL (150-400); RED BLOOD CELL COUNT 3.59 10^6/uL (4.18-5.33)
[2016-11-16 17:20] LABS: ADD SCAN? NO; LEFT SHIFT FLG 120 (0-99); RED CELL DISTRIBUTION WIDTH 20.5 % (11.5-15.2)
[2016-11-16 17:21] LABS: ADD MORPH? NO
[2016-11-16 17:30] LABS: INR 1.75 (0.83-1.16); PROTIME(PATIENT) 20.5 SEC (12.0-15.0)
[2016-11-16 17:31] LABS: APTT 37.8 SEC (23.0-38.0)
[2016-11-16 17:51] LABS: ANION GAP 7 mEq/L (8-16); CALCIUM 7.8 mg/dL (8.5-10.4); CARBON DIOXIDE 27 mEq/l (22-31); CHLORIDE 104 mEq/L (97-110); CREATININE 0.7 mg/dL (0.6-1.0); GLOMERULAR FILTRATION RATE > 60; GLUCOSE 107 mg/dL (70-100); POTASSIUM 3.7 mEq/L (3.5-5.2); SODIUM 138 mEq/L (134-144)
[2016-11-16 17:52] LABS: ALANINE AMINOTRANSFERASE 26 IU/L (9-52); ALBUMIN 2.2 g/dL (3.5-5.0); ALKALINE PHOSPHATASE 65 IU/L (38-126); ASPARTATE AMINOTRANSFERASE 25 IU/L (14-46); BILIRUBIN,TOTAL 0.5 mg/dL (0.1-1.4); MAGNESIUM 1.7 mg/dL (1.6-2.3); TOTAL PROTEIN 4.9 g/dL (6.3-8.2); TRIGLYCERIDE 126 mg/dL (35-135)
[2016-11-16 17:56] LABS: HYPOCHROMIA 2+; MACROCYTES 1+; MICROCYTES 2+
[2016-11-16 17:57] LABS: PLATELET ESTIMATE ADEQUATE (ADEQ)
[2016-11-16] MEDS: HYDROmorphONE/DILAUDID 1 MG/ML SYR IVP PRN (21:40)
[2016-11-17 06:25] LABS: ABSOLUTE NRBC COUNT 0.04 10^3/uL (0-0.01); ADD DIFF? YES; ADD MORPH? YES; ADD SCAN? NO; ATYPICAL LYMPHOCYTE FLAG 0 (0-99); FRAGMENT RBC FLAG 20 (0-99); HEMATOCRIT 27.2 % (38.0-47.0); HEMOGLOBIN 8.7 g/dL (12.6-16.3); LEFT SHIFT FLG 70 (0-99); LIPEMIA HEMOLYSIS FLAG 80 (0-99); MEAN CELL HEMOGLOBIN 26.7 pg (27.9-34.1); MEAN CELL VOLUME 83.4 fL (81.5-99.8); MEAN PLATELET VOLUME 9.2 fL (8.7-11.7); NRBC-AUTO% 0.4 % (0.0-0.2); PLATELET CLUMPS FLAG 20 (0-99); PLATELET COUNT 264 10^3/uL (150-400); RED BLOOD CELL COUNT 3.26 10^6/uL (4.18-5.33)
[2016-11-17 06:30] LABS: RED CELL DISTRIBUTION WIDTH 20.5 % (11.5-15.2)
[2016-11-17 06:55] LABS: INR 1.37 (0.83-1.16); PROTIME(PATIENT) 16.9 SEC (12.0-15.0)
[2016-11-17 06:56] LABS: APTT 32.9 SEC (23.0-38.0)
[2016-11-17 07:43] LABS: HYPOCHROMIA 1+; KERATOCYTES 1+; PLATELET ESTIMATE ADEQUATE (ADEQ); POLYCHROMASIA 1+
[2016-11-17 08:02] LABS: ALANINE AMINOTRANSFERASE 24 IU/L (9-52); ALBUMIN 1.9 g/dL (3.5-5.0); ALKALINE PHOSPHATASE 58 IU/L (38-126); ANION GAP 2 mEq/L (8-16); ASPARTATE AMINOTRANSFERASE 25 IU/L (14-46); BILIRUBIN,TOTAL 0.5 mg/dL (0.1-1.4); CALCIUM 7.4 mg/dL (8.5-10.4); CARBON DIOXIDE 30 mEq/l (22-31); CHLORIDE 104 mEq/L (97-110); CREATININE 0.7 mg/dL (0.6-1.0); GLOMERULAR FILTRATION RATE > 60; GLUCOSE 68 mg/dL (70-100); MAGNESIUM 1.6 mg/dL (1.6-2.3); POTASSIUM 3.3 mEq/L (3.5-5.2); SODIUM 136 mEq/L (134-144); TOTAL PROTEIN 4.4 g/dL (6.3-8.2)
[2016-11-17] MEDS ORDERED: PROTOCOL POTASSIUM 1 DOSE MISC PRN (08:22)
[2016-11-17] MEDS ORDERED: PROTOCOL CALCIUM 1 DOSE IV PRN (08:23)
[2016-11-17] MEDS ORDERED: PROTOCOL MAGNESIUM 1 DOSE IV PRN (08:23)
[2016-11-17] MEDS: ERTAPENEM 1 GM in NS 100 ML IV SCH (09:00)
[2016-11-17] MEDS: ENOXAPARIN 40 MG/0.4 ML SYR SC SCH (09:01)
[2016-11-17] MEDS: VANCOMYCIN 125 MG/2.5 ML UDL PO SCH ×2 (09:01→20:31)
[2016-11-17] MEDS: METOPROLOL TARTRATE 25 MG TAB PO SCH ×3 (09:01→20:31)
[2016-11-17] MEDS: PANTOPRAZOLE SODIUM 40 MG TAB PO SCH (09:02)
[2016-11-17] MEDS: predniSONE 10 MG TAB PO SCH (09:02)
[2016-11-17] MEDS: MENTHOL/CAMPHOR 222 ML BOTTLE TP SCH (09:03)
[2016-11-17] MEDS ORDERED: MAGNESIUM SULF 1 GM/DEXTROSE 100 ML IV ONE (09:31)
[2016-11-17] MEDS: MICAFUNGIN NA 100 MG in NS 100 ML IV SCH (09:49)
[2016-11-17] MEDS: FLUTICASONE/SALMETER 250/50MCG DISKUS IH SCH ×2 (09:55→21:02)
[2016-11-17 10:00] LABS: IONIZED CALCIUM 1.06 MMOL/L (1.12-1.30)
[2016-11-17] MEDS ORDERED: CALCIUM GLUCONATE 50 ML IV ONE (10:24)
[2016-11-17] MEDS: FUROSEMIDE 20 MG/2 ML VIAL IVP SCH (11:05)
[2016-11-17] MEDS: POTASSIUM Cl (KCl) 50 ML IV SCH ×3 (11:05→13:54)
[2016-11-17] MEDS: oxyCODONE IR 5 MG TAB PO PRN (12:11)
--- NOTE | 2016-11-17 13:42 | HOSPPROG ---
Hospitalist Progress Note Assessment/Plan: 76 yo F w UC, recurrent cdiff, chronic steroids, bowel perf, now w edema bowel perf / peritonitis: pod 11 s/p repair and washout per Dr. Diaz, now with recurrent leak. Afebrile, hemodynamically stable. Opting for conservative tx with bowel rest and NPO, though this will be difficult to heal with chronic steroids on board (weaning, see below). Pt reluctant to have another large surgery, which would require an ostomy e coli and klebsiella on peritoneal fluid on ertapenem/fluconazole, ID following blood cx if spikes edema: LE duplex neg for DVT. Edema persists, suspect vol overload, 20 kg up since admission. net neg 2.5 L -Cont IV Lasix as tolerated -monitor I&O's, daily weights -follow bmp while diuresing hypokalemia: replace, follow recurrent c diff: cont po vanc while on broad spectrum atbx unclear contribution to current situation A fib: rate controlled on metoprolol. Chads-vasc 5. -holding Xarelto with possible need for surgical intervention -pplx lovenox anemia: acute blood loss ronnell-operatively, s/p 1 u prbc's, hgb stable, follow h/o recurrent DVT in 2008 per pt report: LE duplex neg for DVT Ulcerative colitis on chronic steroids: plan to wean off prednisone, discussed with GI. Will decrease Pred by 5-10 mg every 2-3 days as tolerates. Watch for signs of adrenal insufficiency as pt has been on chronic steroids for several years. pain: prn IV dilaudid code: full dvt pplx: Lovenox dispo: cont inpt Subjective: Pt continues to feel frustrated, doesn't want to be in the hospital. Still having some loose stools. No significant abdominal pain, no N/ V. No fevers. Objective: Vital Signs Temp Pulse Resp BP Pulse Ox 36.6 C 89 19 121/77 H 92 11/17/16 12:00 11/17/16 12:00 11/17/16 12:00 11/17/16 12:00 11/17/16 12:00 Microbiology 11/07/16 18:29 Gram Stain - Final Abdomen - Eswab Laboratory Results 11/17/16 06:00 11/17/16 06:00 11/16/16 11/17/16 11/18/16 05:59 05:59 05:59 Intake Total 200 200 Output Total 60 2795 Balance 140 -2595 PT 16.9 SEC (12.0-15.0) H 11/17/16 06:00 INR 1.37 (0.83-1.16) H 11/17/16 06:00 - Physical Exam Constitutional: no apparent distress Eyes: PERRL Ears, Nose, Mouth, Throat: dry mucous membranes Cardiovascular: irregularly irregular Respiratory: no respiratory distress, clear to auscultation Gastrointestinal: normoactive bowel sounds, soft, non-tender abdomen, other ( midline incision c/d/i, TIKA drain with less feculent appearing output) Skin: warm Musculoskeletal: full muscle strength Neurologic: AAOx3 Psychiatric: interacting appropriately ICD10 Worksheet Patient Problems: Problems Problem Status Onset Intraperitoneal abscess Acute Small bowel perforation Acute Ulcerative colitis Acute Chronic bronchitis Active Fracture of lower leg Active History of - deep vein thrombosis Active C. difficile diarrhea Acute 11/01/16 Diverticulitis Acute Femur fracture Acute
--- NOTE | 2016-11-17 13:57 | PCMIDPN ---
Assessment/Plan: #Sigmoid perforation with peritonitis/abscess s/p repair and washout in patient with underlying diverticulitis and inflammatory bowel disease. Initial repair surgically appears to have failed w CT showed renewed leak at the sigmoid colon. impairing healing is ongoing steroid use. WBC down a bit but still with 15 % bands. --Current plan is to continue antibiotic treatment and have bowel rest with TPN. --steroid taper per medicine --continue ertapenem and micafungin --continue daily CBC for now # H/O Cdiff, known persistent colonization --vanco PO suppression 125mg PO BID meds ertapenem 1gm IV daily, #10 micafungin 100mg IV daily #4 vancomycin 125mg PO BID Pred 30 mg daily microbiology 11/07 peritoneal cx : Klebsiella, S-pending; E coli Rowe-S, non aubrey albicans Subjective: large loose BM Objective: Vital Signs Temp Pulse Resp BP Pulse Ox 36.6 C 89 19 121/77 H 92 11/17/16 12:00 11/17/16 12:00 11/17/16 12:00 11/17/16 12:00 11/17/16 12:00 Microbiology 11/07/16 18:29 Gram Stain - Final Abdomen - Eswab Laboratory Results 11/17/16 06:00 11/17/16 06:00 11/16/16 11/17/16 11/18/16 05:59 05:59 05:59 Intake Total 200 200 Output Total 60 2795 Balance 140 -2595 - Physical Exam General Appearance: alert, no apparent distress EENT: pale conjunctiva, No scleral icterus Respiratory: lungs clear, No accessory muscle use Neck: supple Cardiac/Chest: irregularly irregular Extremities: pedal edema (improved) Abdomen: non-tender, soft, other (R TIKA drain still fluid still with stool but more mixed serosang + stool), No distended Skin: pallor, No rash Neuro/Psych: alert, normal mood/affect, oriented x 3 - Line/s RUE PICC Lines: No drainage, No erythema - Time Spent With Patient Time Spent with Patient: greater than 35 minutes (coordination of care with Dr. Boss; reviewed plan for NPO and hopeful healing of sigmoid perf) Time Spent with Patient: Greater than 35 minutes spent on this patients care, greater than 50% of time spent counseling, educating, and coordinating care regarding the above mentioned plan. ICD10 Worksheet Patient Problems: Problems Problem Status Onset Intraperitoneal abscess Acute Small bowel perforation Acute Ulcerative colitis Acute Chronic bronchitis Active Fracture of lower leg Active History of - deep vein thrombosis Active C. difficile diarrhea Acute 11/01/16 Diverticulitis Acute Femur fracture Acute
[2016-11-17] MEDS ORDERED: POTASSIUM CL 20 MEQ TAB PO SCH (14:00)
[2016-11-17] MEDS ORDERED: D5W NS W/ 20 KCl/L 1,000 ML IV SCH ×2 (14:15→14:30)
--- NOTE | 2016-11-17 14:55 | SOAPPROG ---
SOAP Progress Note Assessment/Plan: Assessment: Sigmoid perforation, patient cont to be stable. Currently unwilling to undergo surgery, despite understanding that the perforation may not heal with conservative measures. Cont IV abx, TIKA, TPN, NPO. Plan: 11/08/16 12:37 11/09/16 10:10 11/10/16 12:20 11/11/16 11:09 11/12/16 12:57 11/13/16 11:25 11/14/16 13:49 11/15/16 09:45 11/16/16 11:12 11/17/16 14:53 Subjective: No new complaints. +BM Objective: Vital Signs Temp Pulse Resp BP Pulse Ox 36.6 C 89 19 121/77 H 92 11/17/16 12:00 11/17/16 12:00 11/17/16 12:00 11/17/16 12:00 11/17/16 12:00 Microbiology 11/07/16 18:29 Gram Stain - Final Abdomen - Eswab Laboratory Results 11/17/16 06:00 11/17/16 06:00 11/16/16 11/17/16 11/18/16 05:59 05:59 05:59 Intake Total 200 200 Output Total 60 2795 Balance 140 -2595 PT 16.9 SEC (12.0-15.0) H 11/17/16 06:00 INR 1.37 (0.83-1.16) H 11/17/16 06:00 Alert, NAD Abd soft Inc C/D/I TIKA seropurulent ICD10 Worksheet Patient Problems: Problems Problem Status Onset Intraperitoneal abscess Acute Small bowel perforation Acute Ulcerative colitis Acute Chronic bronchitis Active Fracture of lower leg Active History of - deep vein thrombosis Active C. difficile diarrhea Acute 11/01/16 Diverticulitis Acute Femur fracture Acute
[2016-11-17 18:24] LABS: POTASSIUM 3.7 mEq/L (3.5-5.2)
[2016-11-17] MEDS ORDERED: TPN 1 EA BAG IV SCH (21:00)
[2016-11-18] MEDS: HYDROmorphONE/DILAUDID 1 MG/ML SYR IVP PRN (06:40)
[2016-11-18] MEDS: oxyCODONE IR 5 MG TAB PO PRN ×2 (06:42→11:50)
[2016-11-18 06:43] LABS: IONIZED CALCIUM 1.05 MMOL/L (1.12-1.30)
[2016-11-18 06:45] LABS: ABSOLUTE NRBC COUNT 0.05 10^3/uL (0-0.01); ADD DIFF? YES; ADD SCAN? NO; ATYPICAL LYMPHOCYTE FLAG 60 (0-99); FRAGMENT RBC FLAG 20 (0-99); HEMATOCRIT 29.2 % (38.0-47.0); LEFT SHIFT FLG 90 (0-99); LIPEMIA HEMOLYSIS FLAG 80 (0-99); MEAN CELL HEMOGLOBIN 25.8 pg (27.9-34.1); MEAN CELL HEMOGLOBIN CONCENTR. 30.8 g/dL (32.4-36.7); MEAN CELL VOLUME 83.7 fL (81.5-99.8); MEAN PLATELET VOLUME 9.3 fL (8.7-11.7); NRBC-AUTO% 0.6 % (0.0-0.2); PLATELET CLUMPS FLAG 10 (0-99); PLATELET COUNT 272 10^3/uL (150-400); RED BLOOD CELL COUNT 3.49 10^6/uL (4.18-5.33)
[2016-11-18 06:47] LABS: ADD MORPH? NO; RED CELL DISTRIBUTION WIDTH 21.1 % (11.5-15.2)
[2016-11-18 06:52] LABS: APTT 34.7 SEC (23.0-38.0); INR 1.23 (0.83-1.16); PROTIME(PATIENT) 15.5 SEC (12.0-15.0)
[2016-11-18 07:06] LABS: ALANINE AMINOTRANSFERASE 20 IU/L (9-52); ALKALINE PHOSPHATASE 62 IU/L (38-126); ANION GAP 5 mEq/L (8-16); ASPARTATE AMINOTRANSFERASE 26 IU/L (14-46); BILIRUBIN,TOTAL 0.4 mg/dL (0.1-1.4); CALCIUM 7.1 mg/dL (8.5-10.4); CARBON DIOXIDE 31 mEq/l (22-31); CHLORIDE 101 mEq/L (97-110); CREATININE 0.7 mg/dL (0.6-1.0); GLOMERULAR FILTRATION RATE > 60; GLUCOSE 128 mg/dL (70-100); MAGNESIUM 1.8 mg/dL (1.6-2.3); POTASSIUM 3.9 mEq/L (3.5-5.2); SODIUM 137 mEq/L (134-144); TOTAL PROTEIN 4.5 g/dL (6.3-8.2)
[2016-11-18 07:29] LABS: HYPOCHROMIA 1+; KERATOCYTES 1+; POLYCHROMASIA 1+
[2016-11-18 07:30] LABS: PLATELET ESTIMATE ADEQUATE (ADEQ); SMUDGE CELLS 1+
[2016-11-18] MEDS ORDERED: MAGNESIUM SULF 1 GM/DEXTROSE 100 ML IV ONE ×2 (07:40→08:30)
[2016-11-18] MEDS ORDERED: POTASSIUM Cl (KCl) 50 ML IV ONE (07:40)
[2016-11-18] MEDS: FLUTICASONE/SALMETER 250/50MCG DISKUS IH SCH (08:22)
[2016-11-18] MEDS: ENOXAPARIN 40 MG/0.4 ML SYR SC SCH (08:50)
[2016-11-18] MEDS: VANCOMYCIN 125 MG/2.5 ML UDL PO SCH ×3 (08:51→20:33)
[2016-11-18] MEDS: METOPROLOL TARTRATE 25 MG TAB PO SCH ×3 (08:51→20:34)
[2016-11-18] MEDS: FUROSEMIDE 20 MG/2 ML VIAL IVP SCH (08:52)
[2016-11-18] MEDS: predniSONE 10 MG TAB PO SCH (08:52)
[2016-11-18] MEDS: MENTHOL/CAMPHOR 222 ML BOTTLE TP SCH (08:53)
[2016-11-18] MEDS ORDERED: PANTOPRAZOLE SODIUM 40 MG in NS 100 ML IV SCH (09:00)
[2016-11-18] MEDS: ERTAPENEM 1 GM in NS 100 ML IV SCH (09:54)
[2016-11-18] MEDS: MICAFUNGIN NA 100 MG in NS 100 ML IV SCH (09:54)
--- NOTE | 2016-11-18 11:22 | SOAPPROG ---
SOAP Progress Note Assessment/Plan: Assessment: Stable to improved. Cont conservative management, as patient wishes no further intervention and requests palliative care consult. Plan: 11/08/16 12:37 11/09/16 10:10 11/10/16 12:20 11/11/16 11:09 11/12/16 12:57 11/13/16 11:25 11/14/16 13:49 11/15/16 09:45 11/16/16 11:12 11/17/16 14:53 11/18/16 11:21 Subjective: No changes. +BM Objective: Vital Signs Temp Pulse Resp BP Pulse Ox 37.5 C 105 H 22 H 117/80 90 L 11/18/16 08:00 11/18/16 08:00 11/18/16 08:00 11/18/16 08:00 11/18/16 09:01 Microbiology 11/07/16 18:29 Gram Stain - Final Abdomen - Eswab Laboratory Results 11/18/16 06:20 11/18/16 06:20 11/17/16 11/18/16 11/19/16 05:59 05:59 05:59 Intake Total 200 709 Output Total 2795 270 Balance -2595 439 PT 15.5 SEC (12.0-15.0) H 11/18/16 06:20 INR 1.23 (0.83-1.16) H 11/18/16 06:20 Alert, NAD Abd soft, NTTP Inc C/D/I TIKA thinning seropurulent ICD10 Worksheet Patient Problems: Problems Problem Status Onset Intraperitoneal abscess Acute Small bowel perforation Acute Ulcerative colitis Acute Chronic bronchitis Active Fracture of lower leg Active History of - deep vein thrombosis Active C. difficile diarrhea Acute 11/01/16 Diverticulitis Acute Femur fracture Acute
[2016-11-18] MEDS ORDERED: CALCIUM GLUCONATE 50 ML IV ONE (12:14)
--- NOTE | 2016-11-18 12:44 | PCMIDPN ---
Assessment/Plan: #Sigmoid perforation with peritonitis/abscess s/p repair and washout in patient with underlying diverticulitis and inflammatory bowel disease. Initial repair surgically with renewed leak at the sigmoid colon. impairing healing is ongoing steroid use. WBC normal today. --Current plan is to continue antibiotic treatment and have bowel rest with TPN. --steroid taper per medicine --continue ertapenem and micafungin # H/O Cdiff, lot of diarrhea --increase oral vancomycin to treatment dose to see if helps meds ertapenem 1gm IV daily, #11 micafungin 100mg IV daily #5 vancomycin 125mg PO BID Pred 20 mg daily microbiology 11/07 peritoneal cx : Klebsiella, S-pending; E coli Rowe-S, non aubrey albicans Subjective: less abdominal pain today very hopeless about situation Reports 10 bowel movements so far today Objective: Vital Signs Temp Pulse Resp BP Pulse Ox 36.8 C 90 16 135/74 H 93 11/18/16 11:53 11/18/16 11:53 11/18/16 11:53 11/18/16 11:53 11/18/16 11:53 Microbiology 11/07/16 18:29 Gram Stain - Final Abdomen - Eswab Laboratory Results 11/18/16 06:20 11/18/16 06:20 11/17/16 11/18/16 11/19/16 05:59 05:59 05:59 Intake Total 200 709 Output Total 2795 270 Balance -2595 439 - Physical Exam General Appearance: alert, obese, non-toxic EENT: pale conjunctiva, No scleral icterus, No thrush Respiratory: lungs clear, No accessory muscle use Cardiac/Chest: regular rate, rhythm Extremities: pedal edema Abdomen: non-tender, soft, other (Right TIKA drain with feculent material) Pelvic Exam: No grande Skin: pallor, other (Midline surgical scar on abdomen without erythema or drainage), No rash Neuro/Psych: alert, oriented x 3, depressed affect ICD10 Worksheet Patient Problems: Problems Problem Status Onset Intraperitoneal abscess Acute Small bowel perforation Acute Ulcerative colitis Acute Chronic bronchitis Active Fracture of lower leg Active History of - deep vein thrombosis Active C. difficile diarrhea Acute 11/01/16 Diverticulitis Acute Femur fracture Acute
--- NOTE | 2016-11-18 13:57 | HOSPPROG ---
Hospitalist Progress Note Assessment/Plan: 76 yo F w UC, recurrent cdiff, chronic steroids, bowel perf, now w edema bowel perf / peritonitis: pod 12 s/p repair and washout per Dr. Diaz, now with recurrent leak. Afebrile, hemodynamically stable. Cont conservative tx with bowel rest and NPO, though this will be difficult to heal with chronic steroids on board (weaning, see below). Pt reluctant to have another large surgery, which would require an ostomy and feels hopeless, wants palliative care consult. e coli and klebsiella on peritoneal fluid on ertapenem/fluconazole, ID following blood cx if spikes edema / volume overload: LE duplex neg for DVT. 20 kg up since admission. down >4 kg over past 2 days with diuresis -Cont IV Lasix as tolerated -monitor I&O's, daily weights -follow bmp while diuresing hypokalemia: replace, follow recurrent c diff: cont po vanc while on broad spectrum atbx, increased to QID per ID. unclear contribution to current situation A fib: rate controlled on metoprolol. Chads-vasc 5. -holding Xarelto given possible surgical needs, at risk for recurrent peritonitis -pplx lovenox anemia: acute blood loss ronnell-operatively, s/p 1 u prbc's, hgb stable, follow h/o recurrent DVT in 2008 per pt report: LE duplex neg for DVT Ulcerative colitis on chronic steroids: plan to wean off prednisone, discussed with GI. Will decrease Pred by 5-10 mg every 2-3 days as tolerates. Watch for signs of adrenal insufficiency as pt has been on chronic steroids for several years. pain: prn IV dilaudid code: full dvt pplx: Lovenox dispo: cont inpt. pt has requested palliative care consult, will plan for sunday. She wants to be DNR, but is adamant that she remain full code and proceed with another surgery should that become necessary. She reluctantly agrees to remain full code for now. I'm concerned that he is not honoring her wishes and she is fully capable of making her wishes known. Will request ethics consult as well. We need to advocate for pt and respect her wishes. Subjective: Pt remains depressed about her situation and states she wishes to give up. She wants to be DNR, but strongly disagrees with her. She denies fevers/chills or abdominal pain. No fevers. Objective: Vital Signs Temp Pulse Resp BP Pulse Ox 36.8 C 90 16 135/74 H 93 11/18/16 11:53 11/18/16 11:53 11/18/16 11:53 11/18/16 11:53 11/18/16 11:53 Microbiology 11/07/16 18:29 Gram Stain - Final Abdomen - Eswab Laboratory Results 11/18/16 06:20 11/18/16 06:20 11/17/16 11/18/16 11/19/16 05:59 05:59 05:59 Intake Total 200 709 Output Total 2795 270 Balance -2595 439 PT 15.5 SEC (12.0-15.0) H 11/18/16 06:20 INR 1.23 (0.83-1.16) H 11/18/16 06:20 - Physical Exam Constitutional: no apparent distress Eyes: PERRL Ears, Nose, Mouth, Throat: moist mucous membranes Cardiovascular: regular rate and rhythym Respiratory: no respiratory distress Gastrointestinal: normoactive bowel sounds, soft, non-tender abdomen, other ( feculent material in TIKA drain noted) Skin: warm Musculoskeletal: full muscle strength Neurologic: AAOx3 Psychiatric: interacting appropriately ICD10 Worksheet Patient Problems: Problems Problem Status Onset Intraperitoneal abscess Acute Small bowel perforation Acute Ulcerative colitis Acute Chronic bronchitis Active Fracture of lower leg Active History of - deep vein thrombosis Active C. difficile diarrhea Acute 11/01/16 Diverticulitis Acute Femur fracture Acute
[2016-11-18 17:57] LABS: POTASSIUM 6.2 mEq/L (3.5-5.2)
[2016-11-18 19:37] LABS: POTASSIUM 4.3 mEq/L (3.5-5.2)
[2016-11-18] MEDS: TPN W/ FAMOTIDINE 1 EA BAG IV SCH (20:33)
[2016-11-19] MEDS: oxyCODONE IR 5 MG TAB PO PRN ×2 (04:32→10:50)
[2016-11-19] MEDS: VANCOMYCIN 125 MG/2.5 ML UDL PO SCH ×4 (04:33→21:19)
[2016-11-19 04:55] LABS: IONIZED CALCIUM 1.08 MMOL/L (1.12-1.30)
[2016-11-19 05:39] LABS: ALANINE AMINOTRANSFERASE 28 IU/L (9-52); ALKALINE PHOSPHATASE 60 IU/L (38-126); ANION GAP 3 mEq/L (8-16); ASPARTATE AMINOTRANSFERASE 21 IU/L (14-46); BILIRUBIN,TOTAL 0.2 mg/dL (0.1-1.4); CALCIUM 7.3 mg/dL (8.5-10.4); CARBON DIOXIDE 32 mEq/l (22-31); CHLORIDE 100 mEq/L (97-110); CREATININE 0.6 mg/dL (0.6-1.0); GLOMERULAR FILTRATION RATE > 60; GLUCOSE 166 mg/dL (70-100); MAGNESIUM 2.1 mg/dL (1.6-2.3); POTASSIUM 4.2 mEq/L (3.5-5.2); SODIUM 135 mEq/L (134-144); TOTAL PROTEIN 4.8 g/dL (6.3-8.2)
[2016-11-19 05:43] LABS: INR 1.15 (0.83-1.16); PROTIME(PATIENT) 14.6 SEC (12.0-15.0)
[2016-11-19 05:44] LABS: APTT 34.9 SEC (23.0-38.0)
[2016-11-19] MEDS: FLUTICASONE/SALMETER 250/50MCG DISKUS IH SCH ×3 (06:07→21:05)
--- NOTE | 2016-11-19 08:32 | HOSPPROG ---
Hospitalist Progress Note Assessment/Plan: 76 yo F w UC, recurrent cdiff, chronic steroids, bowel perf, now w new bowel leak and edema / volume overload bowel perf / peritonitis: pod 13 s/p repair and washout per Dr. Diaz, now with recurrent leak. Afebrile, hemodynamically stable. Cont conservative tx with bowel rest, NPO and TPN. This will be difficult to heal with chronic steroids on board (weaning, see below). Pt reluctant to have another large surgery, which would likely require an ostomy and she feels hopeless, wants palliative care consult. -e coli and klebsiella on peritoneal fluid -on ertapenem/fluconazole, ID following -blood cx if spikes edema / volume overload: LE duplex neg for DVT. 20 kg up since admission. down >6 kg since initiating diuresis 3 days ago -Cont IV Lasix as tolerated. -monitor I&O's, daily weights. she may be developing a contraction alkalosis and could stop or change to oral lasix tomorrow. -follow bmp while diuresing. hypokalemia: replace, follow recurrent c diff: cont po vanc while on broad spectrum atbx, increased to QID per ID. unclear contribution to current situation A fib: rate controlled on metoprolol. Chads-vasc 5. -holding Xarelto given possible surgical needs, at risk for recurrent peritonitis -cont pplx dose lovenox for now anemia: acute blood loss ronnell-operatively, s/p 1 u prbc's, hgb stable, follow h/o DVT in 2008 per pt report: LE duplex neg for DVT Ulcerative colitis on chronic steroids: weaning off prednisone to maximize her chances of healing bowel leak, discussed with GI. Cont to decrease by 5-10 mg every 2-3 days. Watch for signs of adrenal insufficiency as pt has been on chronic steroids for several years. Nutrition: On TPN while NPO pain: prn IV dilaudid code: full dvt pplx: Lovenox dispo: cont inpt. Pt continues to ask to be changed to DNR. adamantly disagrees, but pt has full capacity to make her own medical decision. reports 3 of her siblings committed suicide and he thinks her wishes to be DNR are coming from a depressed state. Palliative care consult tomorrow to continue to address goals of care. Consider ethics consult. I've changed her to DNR based on her clearly stated wishes. Subjective: Pt continues to report feeling hopeless, depressed, wants to end it all. Feels her QOL is very poor. She again states she wishes to be DNR. No fevers. No abdominal pain. Remains NPO. Objective: Vital Signs Temp Pulse Resp BP Pulse Ox 36.6 C 84 18 131/79 H 96 11/19/16 04:00 11/19/16 04:00 11/19/16 04:00 11/19/16 04:00 11/19/16 04:00 Microbiology 11/07/16 18:29 Gram Stain - Final Abdomen - Eswab Anaerobic Culture - Final Escherichia Coli Klebsiella Pneumoniae Ssp Pneu Laboratory Results 11/18/16 06:20 11/19/16 04:30 11/18/16 11/19/16 11/20/16 05:59 05:59 05:59 Intake Total 709 1214 Output Total 270 Balance 439 1214 PT 14.6 SEC (12.0-15.0) 11/19/16 04:30 INR 1.15 (0.83-1.16) 11/19/16 04:30 - Physical Exam Constitutional: no apparent distress Eyes: PERRL Ears, Nose, Mouth, Throat: moist mucous membranes Cardiovascular: irregularly irregular Respiratory: no respiratory distress, clear to auscultation Gastrointestinal: normoactive bowel sounds, other (soft, minimal distention, non -tender) Skin: warm Musculoskeletal: generalized weakness Neurologic: AAOx3 Psychiatric: depressed ICD10 Worksheet Patient Problems: Problems Problem Status Onset Intraperitoneal abscess Acute Small bowel perforation Acute Ulcerative colitis Acute Chronic bronchitis Active Fracture of lower leg Active History of - deep vein thrombosis Active C. difficile diarrhea Acute 11/01/16 Diverticulitis Acute Femur fracture Acute
[2016-11-19] MEDS: ERTAPENEM 1 GM in NS 100 ML IV SCH (08:48)
[2016-11-19] MEDS: FUROSEMIDE 20 MG/2 ML VIAL IVP SCH (08:53)
[2016-11-19] MEDS: predniSONE 10 MG TAB PO SCH (08:56)
[2016-11-19] MEDS ORDERED: POTASSIUM Cl (KCl) 100 ML IV SCH (09:00)
[2016-11-19] MEDS: METOPROLOL TARTRATE 25 MG TAB PO SCH ×3 (09:25→21:23)
[2016-11-19] MEDS: ENOXAPARIN 40 MG/0.4 ML SYR SC SCH (09:26)
[2016-11-19] MEDS: MENTHOL/CAMPHOR 222 ML BOTTLE TP SCH (09:27)
[2016-11-19] MEDS: MICAFUNGIN NA 100 MG in NS 100 ML IV SCH (09:35)
[2016-11-19] MEDS: INSULIN REGULAR, HUMAN 100 UNIT/1 ML VIAL STANDARD SC SCH ×3 (10:51→17:15)
[2016-11-19] MEDS ORDERED: CALCIUM GLUCONATE 50 ML IV ONE (11:16)
--- NOTE | 2016-11-19 12:20 | SOAPPROG ---
SOAP Progress Note Assessment/Plan: Assessment: Stable. Options reviewed with patient and . She is currently unwilling to undergo surgery if avoidable. Cont TPN/NPO/abx. Per patient wishes plan palliative care consult. Plan: 11/08/16 12:37 11/09/16 10:10 11/10/16 12:20 11/11/16 11:09 11/12/16 12:57 11/13/16 11:25 11/14/16 13:49 11/15/16 09:45 11/16/16 11:12 11/17/16 14:53 11/18/16 11:21 11/19/16 12:19 Subjective: No new complaints, no N/V. +BM. Objective: Vital Signs Temp Pulse Resp BP Pulse Ox 36.3 C 85 20 120/80 91 L 11/19/16 11:26 11/19/16 11:26 11/19/16 11:26 11/19/16 11:26 11/19/16 11:26 Microbiology 11/07/16 18:29 Gram Stain - Final Abdomen - Eswab Anaerobic Culture - Final Escherichia Coli Klebsiella Pneumoniae Ssp Pneu Laboratory Results 11/18/16 06:20 11/19/16 04:30 11/18/16 11/19/16 11/20/16 05:59 05:59 05:59 Intake Total 709 1214 Output Total 270 1251 Balance 439 1214 -1251 PT 14.6 SEC (12.0-15.0) 11/19/16 04:30 INR 1.15 (0.83-1.16) 11/19/16 04:30 Alert, NAD Abd sl distended but soft, NTTP Inc C/D/I TIKA thin seropurulent. ICD10 Worksheet Patient Problems: Problems Problem Status Onset Intraperitoneal abscess Acute Small bowel perforation Acute Ulcerative colitis Acute Chronic bronchitis Active Fracture of lower leg Active History of - deep vein thrombosis Active C. difficile diarrhea Acute 11/01/16 Diverticulitis Acute Femur fracture Acute
--- NOTE | 2016-11-19 13:58 | PCMIDPN ---
Assessment/Plan: #Sigmoid perforation with peritonitis/abscess s/p repair and washout in patient with underlying diverticulitis and inflammatory bowel disease. Initial repair surgically with renewed leak at the sigmoid colon. steroid use likely impairing healing therefore medicine is tapering. No new labs today. Cultures show Klebsiella, E coli and non Rachel albicans. --Current plan is to continue antibiotic treatment and have bowel rest with TPN and hope that leak heals. --continue ertapenem for coverage of Klebsiella, E coli and anaerobes and micafungin for non Rachel albicans # H/O Cdiff: Increased to treatment doses yesterday because of multiple bouts of diarrhea and concern of active disease. Frequency of loose stools seems slightly improved today. meds ertapenem 1gm IV daily, #12 micafungin 100mg IV daily #6 vancomycin 125mg PO four times daily Pred 10 mg daily microbiology 11/07 peritoneal cx : Klebsiella, S-pending; E coli Rowe-S, non rachel albicans Care coordinated with Dr. Boss and Dr. Diaz Subjective: Patient is feeling like she does not want another surgery currently. Less frequent BMs today. Each Void 500-600 cc urine Objective: Vital Signs Temp Pulse Resp BP Pulse Ox 36.3 C 85 20 120/80 91 L 11/19/16 11:26 11/19/16 11:26 11/19/16 11:26 11/19/16 11:26 11/19/16 11:26 Microbiology 11/07/16 18:29 Gram Stain - Final Abdomen - Eswab Anaerobic Culture - Final Escherichia Coli Klebsiella Pneumoniae Ssp Pneu Laboratory Results 11/18/16 06:20 11/19/16 04:30 11/18/16 11/19/16 11/20/16 05:59 05:59 05:59 Intake Total 709 1214 Output Total 270 1251 Balance 439 1214 -1251 General Appearance: alert, obese, non-toxic EENT: pale conjunctiva, No scleral icterus, No thrush Respiratory: No accessory muscle use Extremities: pedal edema, improving Abdomen: non-tender, soft, Right TIKA drain with purulent material. (Change --> yesterday feculent ) Pelvic Exam: No grande Skin: pallor, Midline surgical scar on abdomen without erythema or drainage, No rash Neuro/Psych: alert, oriented x 3, a little more cheerful today - Time Spent With Patient Time Spent with Patient: greater than 25 minutes Time Spent with Patient: Greater than 25 minutes spent on this patients care, greater than 50% of time spent counseling, educating, and coordinating care regarding the above mentioned plan. ICD10 Worksheet Patient Problems: Problems Problem Status Onset Intraperitoneal abscess Acute Small bowel perforation Acute Ulcerative colitis Acute Chronic bronchitis Active Fracture of lower leg Active History of - deep vein thrombosis Active C. difficile diarrhea Acute 11/01/16 Diverticulitis Acute Femur fracture Acute
[2016-11-19] MEDS: TPN W/ FAMOTIDINE 1 EA BAG IV SCH (21:19)
[2016-11-20] MEDS: INSULIN REGULAR, HUMAN 100 UNIT/1 ML VIAL STANDARD SC SCH ×5 (01:21→23:19)
[2016-11-20] MEDS: VANCOMYCIN 125 MG/2.5 ML UDL PO SCH ×4 (05:17→21:00)
[2016-11-20 05:55] LABS: ADD DIFF? YES; FRAGMENT RBC FLAG 20 (0-99); HEMATOCRIT 28.3 % (38.0-47.0); HEMOGLOBIN 8.7 g/dL (12.6-16.3); IONIZED CALCIUM 1.09 MMOL/L (1.12-1.30); LEFT SHIFT FLG 60 (0-99); LIPEMIA HEMOLYSIS FLAG 80 (0-99); MEAN CELL HEMOGLOBIN 25.7 pg (27.9-34.1); MEAN CELL HEMOGLOBIN CONCENTR. 30.7 g/dL (32.4-36.7); MEAN CELL VOLUME 83.5 fL (81.5-99.8); MEAN PLATELET VOLUME 10.1 fL (8.7-11.7); PLATELET CLUMPS FLAG 20 (0-99); PLATELET COUNT 269 10^3/uL (150-400); RED BLOOD CELL COUNT 3.39 10^6/uL (4.18-5.33)
[2016-11-20 06:00] LABS: ATYPICAL LYMPHOCYTE FLAG 110 (0-99)
[2016-11-20 06:01] LABS: ADD MORPH? NO; ADD SCAN? NO
[2016-11-20 06:03] LABS: INR 1.15 (0.83-1.16); PROTIME(PATIENT) 14.6 SEC (12.0-15.0)
[2016-11-20 06:04] LABS: APTT 34.5 SEC (23.0-38.0)
[2016-11-20 06:14] LABS: ALANINE AMINOTRANSFERASE 25 IU/L (9-52); ALBUMIN 2.1 g/dL (3.5-5.0); ALKALINE PHOSPHATASE 68 IU/L (38-126); ANION GAP 4 mEq/L (8-16); ASPARTATE AMINOTRANSFERASE 29 IU/L (14-46); BILIRUBIN,TOTAL 0.3 mg/dL (0.1-1.4); CALCIUM 7.5 mg/dL (8.5-10.4); CARBON DIOXIDE 32 mEq/l (22-31); CHLORIDE 98 mEq/L (97-110); CREATININE 0.6 mg/dL (0.6-1.0); GLOMERULAR FILTRATION RATE > 60; GLUCOSE 103 mg/dL (70-100); POTASSIUM 4.6 mEq/L (3.5-5.2); SODIUM 134 mEq/L (134-144); TOTAL PROTEIN 5.2 g/dL (6.3-8.2); TRIGLYCERIDE 141 mg/dL (35-135)
[2016-11-20 06:34] LABS: MACROCYTES 1+
[2016-11-20 06:35] LABS: HYPOCHROMIA 1+; PLATELET ESTIMATE ADEQUATE (ADEQ)
[2016-11-20 06:36] LABS: POLYCHROMASIA 1+
[2016-11-20] MEDS: FUROSEMIDE 20 MG/2 ML VIAL IVP SCH (08:32)
[2016-11-20] MEDS: oxyCODONE IR 5 MG TAB PO PRN ×2 (08:32→23:15)
[2016-11-20] MEDS: predniSONE 10 MG TAB PO SCH (08:33)
[2016-11-20] MEDS: METOPROLOL TARTRATE 25 MG TAB PO SCH ×3 (08:33→21:01)
[2016-11-20] MEDS: ERTAPENEM 1 GM in NS 100 ML IV SCH (08:36)
[2016-11-20] MEDS: MENTHOL/CAMPHOR 222 ML BOTTLE TP SCH (08:36)
[2016-11-20] MEDS: ENOXAPARIN 40 MG/0.4 ML SYR SC SCH (08:45)
[2016-11-20] MEDS: FLUTICASONE/SALMETER 250/50MCG DISKUS IH SCH ×2 (08:54→20:34)
[2016-11-20] MEDS ORDERED: CALCIUM GLUCONATE 50 ML IV ONE (09:02)
[2016-11-20] MEDS: MICAFUNGIN NA 100 MG in NS 100 ML IV SCH (09:38)
--- NOTE | 2016-11-20 10:17 | SOAPPROG ---
SOAP Progress Note Assessment/Plan: Assessment: Stable. Options reviewed with patient and . Will cont TIKA/NPO/TPN; if patient and wish to continue this course plan nocturnal TPN. Plan: 11/08/16 12:37 11/09/16 10:10 11/10/16 12:20 11/11/16 11:09 11/12/16 12:57 11/13/16 11:25 11/14/16 13:49 11/15/16 09:45 11/16/16 11:12 11/17/16 14:53 11/18/16 11:21 11/19/16 12:19 11/20/16 10:16 Subjective: Patient with some abd pain this AM, none currently. Objective: Vital Signs Temp Pulse Resp BP Pulse Ox 37.1 C 85 14 115/66 92 11/20/16 08:00 11/20/16 08:55 11/20/16 08:00 11/20/16 08:00 11/20/16 08:55 Laboratory Results 11/20/16 05:40 11/20/16 05:40 11/19/16 11/20/16 11/21/16 05:59 05:59 05:59 Intake Total 1214 1755 Output Total 60 2202 Balance 1154 -447 PT 14.6 SEC (12.0-15.0) 11/20/16 05:40 INR 1.15 (0.83-1.16) 11/20/16 05:40 Alert, NAD Abd soft, NTTP Inc C/D/I TIKA seropurulent ICD10 Worksheet Patient Problems: Problems Problem Status Onset Intraperitoneal abscess Acute Small bowel perforation Acute Ulcerative colitis Acute Chronic bronchitis Active Fracture of lower leg Active History of - deep vein thrombosis Active C. difficile diarrhea Acute 11/01/16 Diverticulitis Acute Femur fracture Acute
--- NOTE | 2016-11-20 11:55 | PCMIDPN ---
Assessment/Plan: Assessment/Plan: * Polymicrobial peritonitis due to sigmoid perforation status post incision and drainage/perforation closure with ongoing leak: Continue ertapenem and micafungin. Currently on bowel rest with TPN and antibiotic therapy with goal of leaks healing over time which is complicated by underlying ulcerative colitis and ongoing prednisone use as well as C difficile colitis. * History of C difficile colitis: Diarrhea resolved after increasing oral vancomycin to treatment doses at four times daily. 11/20/16 11:53 Subjective: Patient feels tired. Intermittent abdominal cramping in left lower quadrant. Objective: Vital Signs Temp Pulse Resp BP Pulse Ox 36.7 C 86 16 139/89 H 99 11/20/16 11:35 11/20/16 11:35 11/20/16 11:35 11/20/16 11:35 11/20/16 11:35 Laboratory Results 11/20/16 05:40 11/20/16 05:40 11/19/16 11/20/16 11/21/16 05:59 05:59 05:59 Intake Total 1214 1755 Output Total 60 2202 500 Balance 1154 -447 -500 Ertapenem # 13 Micafungin # 7 Oral vancomycin four times daily dosing # 2 - Physical Exam General Appearance: alert, no apparent distress EENT: No scleral icterus, No thrush Cardiac/Chest: irregularly irregular Abdomen: non-tender, distended (Mild to moderate), other (TIKA with feculent output; midline incision intact without drainage or erythema) - Line/s RUE PICC Lines: No drainage, No erythema ICD10 Worksheet Patient Problems: Problems Problem Status Onset Intraperitoneal abscess Acute Small bowel perforation Acute Ulcerative colitis Acute Chronic bronchitis Active Fracture of lower leg Active History of - deep vein thrombosis Active C. difficile diarrhea Acute 11/01/16 Diverticulitis Acute Femur fracture Acute
--- NOTE | 2016-11-20 13:43 | HOSPPROG ---
Hospitalist Progress Note Assessment/Plan: 76 yo F w UC, recurrent cdiff, chronic steroids, presenting with bowel perf and abscess s/p drainage and repair with recurrent leak post operatively # bowel perforation/peritonitis: s/p repair and washout with now recurrent/ ongoing leak. Initial bowel perforation related either to diverticulitis versus inflammation in setting of UC and c diff. Slow to heal given chronic steroids, recurrent c diff. Attempting conservative mgmt with bowel rest, TPN, abx. If healing not occurring in 4-6 weeks, would need to repeat surgery at that time. She is feeling overwhelmed and hopeless and leaning towards comfort care only, but family feels differently. continue ertapenem/micafungin for polymicrobial intra abdominal abscess. # recurrent c diff: continue PO vanc while on broad spectrum abx, diarrhea has improved # h/o UC: on chronic steroids, currently weaning off of prednisone given above, decreasing pred 5-10mg q 2-3 days watching for AI # volume overload: 2/2 volume resuscitation, continue IV lasix daily for now and monitor. Still up 13kg since admission. # ileus/sbo: noted on imaging, continued NPO, TPN # anemia: has been stable, received 1 unit in ronnell op period # h/o DVT # nutrition: on TPN # pain: prn IV dilaudid, consider WORK CAR OPERATOR # code status: DNR, goals of care reviewed, patient states she wants to transition to comfort care only, she is suffering and does not like the loss of her independence, cannot see this improving. strongly disagrees. She eventually agrees to give it more time, palliative care involved. Patient new to my care. Old records reviewed and summarized as above, care plan reviewed with palliative care team and patients present at bedside. Subjective: no significant overnight events, patient states she is wanting to give up and go to hospice as she is just suffering currently and does not want to continue to live like this Objective: Vital Signs Temp Pulse Resp BP Pulse Ox 36.7 C 86 16 139/89 H 99 11/20/16 11:35 11/20/16 11:35 11/20/16 11:35 11/20/16 11:35 11/20/16 11:35 Laboratory Results 11/20/16 05:40 11/20/16 05:40 11/19/16 11/20/16 11/21/16 05:59 05:59 05:59 Intake Total 1214 1755 Output Total 60 2202 1000 Balance 1154 447 -1000 PT 14.6 SEC (12.0-15.0) 11/20/16 05:40 INR 1.15 (0.83-1.16) 11/20/16 05:40 awake alert mild distress tearful anicteric op clear rrr no mrg cta but dec at bases distended, firm, asymmetrical, dec bs trace ble edema warm dry well perfused oriented appropriate - Time Spent With Patient Time Spent with Patient: greater than 35 minutes Time Spent with Patient: Greater than 35 minutes spent on this patients care, greater than 50% of time spent counseling, educating, and coordinating care regarding the above mentioned plan. ICD10 Worksheet Patient Problems: Problems Problem Status Onset Small bowel perforation Acute Intraperitoneal abscess Acute Ulcerative colitis Acute History of - deep vein thrombosis Active Chronic bronchitis Active Fracture of lower leg Active Diverticulitis Acute Femur fracture Acute C. difficile diarrhea Acute 11/01/16
--- NOTE | 2016-11-20 16:42 | PDPCPN ---
Palliative Care Progress Note Assessment/Plan: Referring provider: Dr Rivas Reason for consult: Complex medical decision making Symptom control HPI: Yelitza Ansari is a 76 yo female with pMH ulcerative colitis, recurrent c diff, a fib, DVT admitted to the hospital with increasing abdominal pain and nausea/ distention. Found to have bowel perf with abscess. Recently started on antibiotics for recurrent c diff as outpt. s/p drainage and repair of leak with complications of recurrent leak post op requiring bowel rest and TPN. With ongoing pain and nausea. Patient is not wanting to continue with aggressive medical interventions. Palliative care consulted for complex medical decision making. Met with and Yelitza at the bedside this morning with Dr Valente. Yelitza stated she feels she is suffering with no quality of life due to having pain/ nausea issues and being very weak. She has always been an independent person who has never been very sick and this hospitalization is very difficult for her. She does not want any further surgeries and does not like the idea of waiting to see if she will heal in 4-6 weeks. Her stated when she is feeling poorly she does not want to live but when she feels good, she wants to live. Discussed if we were able to have her feeling better would she want to continue with medical interventions and she said yes. Assessment: Physical: - Pain: abdominal pain - can try scop patch for cramping pain - on oxy IR and dilaudid PRN - if pain is consistent might consider DAIRY PROCESSING SUPERVISOR to help with independence and pain - Nausea: - if continues might try scop patch to help - constipation - at risk with opiates - monitor and when able start bowel regimen Emotional/psychological: feeling hopeless and overwhelmed. Does not see how she will get better Advanced Care Planning: Is patient decisional?: Yes Code Status: DNR POA: is MDPOA Plan: Will continue to follow along to help with goals of care and family grief. Subjective: I just want to be comfortable Objective: Social History: for 47 years. Worked as a middle school assistant principal. Medication list reviewed ROS: General: fatigue, weakness ENT: negative Resp: negative GI: abdominal pain, nausea : negative MS: lower leg swelling Skin: negative Neuro: negative Psych: sadness Functional assessment: PPS: 50% Functional status: needs assistance with most ADLs Vital Signs Temp Pulse Resp BP Pulse Ox 37.0 C 82 18 109/81 H 96 05/01/17 15:19 11/20/16 15:19 11/20/16 15:19 11/20/16 15:19 11/20/16 15:19 Laboratory Results 11/20/16 05:40 11/20/16 05:40 11/19/16 11/20/16 11/21/16 05:59 05:59 05:59 Intake Total 1214 1755 Output Total 60 2202 1000 Balance 1154 -447 -1000 PT 14.6 SEC (12.0-15.0) 11/20/16 05:40 INR 1.15 (0.83-1.16) 11/20/16 05:40 Physical Exam - Physical Exam General Appearance: alert, no apparent distress Respiratory: No respiratory distress, No accessory muscle use Skin: normal color, warm/dry Extremities: pedal edema Neuro/Psych: alert, oriented x 3 ICD10 Worksheet Patient Problems: Problems Problem Status Onset Intraperitoneal abscess Acute Palliative care encounter Acute Small bowel perforation Acute Ulcerative colitis Acute Chronic bronchitis Active Fracture of lower leg Active History of - deep vein thrombosis Active C. difficile diarrhea Acute 11/01/16 Diverticulitis Acute Femur fracture Acute - ICD10 Problem Qualifiers (1) Palliative care encounter
[2016-11-20] MEDS: TPN W/ FAMOTIDINE 1 EA BAG IV SCH (21:03)
[2016-11-21] MEDS: VANCOMYCIN 125 MG/2.5 ML UDL PO SCH ×4 (05:37→21:32)
[2016-11-21] MEDS: INSULIN REGULAR, HUMAN 100 UNIT/1 ML VIAL STANDARD SC SCH ×4 (05:41→23:49)
[2016-11-21 06:28] LABS: IONIZED CALCIUM 1.07 MMOL/L (1.12-1.30)
[2016-11-21] MEDS ORDERED: CALCIUM GLUCONATE 50 ML IV ONE (07:18)
[2016-11-21] MEDS: ONDANSETRON 4 MG/2 ML VIAL IVP PRN (08:04)
[2016-11-21] MEDS: oxyCODONE IR 5 MG TAB PO PRN ×2 (08:04→15:42)
[2016-11-21] MEDS: METOPROLOL TARTRATE 25 MG TAB PO SCH ×3 (08:05→21:32)
[2016-11-21] MEDS: FUROSEMIDE 20 MG/2 ML VIAL IVP SCH (08:05)
[2016-11-21] MEDS: predniSONE 10 MG TAB PO SCH (08:05)
[2016-11-21] MEDS: ENOXAPARIN 40 MG/0.4 ML SYR SC SCH (08:07)
[2016-11-21] MEDS: MENTHOL/CAMPHOR 222 ML BOTTLE TP SCH (08:16)
[2016-11-21] MEDS: ERTAPENEM 1 GM in NS 100 ML IV SCH (09:08)
[2016-11-21] MEDS: FLUTICASONE/SALMETER 250/50MCG DISKUS IH SCH ×2 (09:27→20:26)
[2016-11-21] MEDS: MICAFUNGIN NA 100 MG in NS 100 ML IV SCH (09:51)
--- NOTE | 2016-11-21 12:37 | HOSPPROG ---
Hospitalist Progress Note Assessment/Plan: 76 yo F w UC, recurrent cdiff, chronic steroids, presenting with bowel perf and abscess s/p drainage and repair with recurrent leak post operatively # bowel perforation/peritonitis: s/p repair and washout with now recurrent/ ongoing leak. Initial bowel perforation related either to diverticulitis versus inflammation in setting of UC and c diff. Slow to heal given chronic steroids, recurrent c diff. Attempting conservative mgmt with bowel rest, TPN, abx. continue ertapenem/micafungin for polymicrobial intra abdominal abscess. # abdominal pain: 2/2 above, today pain is well controlled, continue prn IV/ oral opiates # recurrent c diff: continue PO vanc while on broad spectrum abx, diarrhea has improved on tx dose vanc # h/o UC: on chronic steroids, currently weaning off of prednisone given above, decreasing pred--at baseline was on 30mg and now down to 10, will need to watch for s/s of AI on decreasing doses of pred # volume overload: 2/2 volume resuscitation, continue IV lasix daily for now and monitor. Still up 13kg since admission. # ileus/sbo: noted on imaging, continued NPO, TPN # anemia: has been stable, received 1 unit in [place]on[place] op period # h/o DVT # nutrition: on TPN # pain: prn IV dilaudid, consider DRY PLASTERER HELPER # code status: DNR, goals of care an ongoing conversation Subjective: no acute overnight events, patient is feeling a bit better today-- states she is urinating a lot, passing gas, pain controlled, not nauseated Objective: Vital Signs Temp Pulse Resp BP Pulse Ox 36.3 C 87 18 98/54 L 92 11/21/16 11:29 11/21/16 11:29 11/21/16 11:29 11/21/16 11:29 11/21/16 11:29 Laboratory Results 11/20/16 05:40 11/20/16 05:40 11/20/16 11/21/16 11/22/16 05:59 05:59 05:59 Intake Total 1755 1716 Output Total 2205 2065 10 Balance -447 -349 -10 PT 14.6 SEC (12.0-15.0) 11/20/16 05:40 INR 1.15 (0.83-1.16) 11/20/16 05:40 awake alert mild distress tearful anicteric op clear rrr no mrg cta but dec at bases distended, firm, asymmetrical, dec bs trace ble edema warm dry well perfused oriented appropriate ICD10 Worksheet Patient Problems: Problems Problem Status Onset Intraperitoneal abscess Acute Palliative care encounter Acute Small bowel perforation Acute Ulcerative colitis Acute Chronic bronchitis Active Fracture of lower leg Active History of - deep vein thrombosis Active C. difficile diarrhea Acute 11/01/16 Diverticulitis Acute Femur fracture Acute
[2016-11-21] MEDS: TPN W/ FAMOTIDINE 1 EA BAG IV SCH (21:32)
[2016-11-22] MEDS: VANCOMYCIN 125 MG/2.5 ML UDL PO SCH ×4 (05:43→21:17)
[2016-11-22] MEDS: oxyCODONE IR 5 MG TAB PO PRN ×3 (05:43→18:51)
[2016-11-22] MEDS: INSULIN REGULAR, HUMAN 100 UNIT/1 ML VIAL STANDARD SC SCH ×3 (05:44→18:45)
[2016-11-22 06:06] LABS: IONIZED CALCIUM 1.06 MMOL/L (1.12-1.30)
[2016-11-22] MEDS ORDERED: CALCIUM GLUCONATE 50 ML IV ONE (07:36)
[2016-11-22] MEDS: FLUTICASONE/SALMETER 250/50MCG DISKUS IH SCH ×4 (08:15→22:19)
[2016-11-22] MEDS: ENOXAPARIN 40 MG/0.4 ML SYR SC SCH (08:23)
[2016-11-22] MEDS: FUROSEMIDE 20 MG/2 ML VIAL IVP SCH (08:23)
[2016-11-22] MEDS: METOPROLOL TARTRATE 25 MG TAB PO SCH ×3 (08:24→21:18)
[2016-11-22] MEDS: predniSONE 10 MG TAB PO SCH (08:24)
[2016-11-22] MEDS: ERTAPENEM 1 GM in NS 100 ML IV SCH (08:26)
[2016-11-22] MEDS: MENTHOL/CAMPHOR 222 ML BOTTLE TP SCH (08:39)
--- NOTE | 2016-11-22 10:33 | PCMIDPN ---
Assessment/Plan: # Sigmoid perforation with peritonitis/abscess s/p repair and washout in patient with underlying diverticulitis and inflammatory bowel disease. Initial repair surgically with renewed leak at the sigmoid colon. Currently managing with NPO/TPN/TIKA drain. OR cx show Klebsiella, E Coli and c. glabrata. Drain output 40cc/24h. Multiple factors contributing to slow healing, steroids, Cdiff , IBS. --tentatively plan repeat imaging 2 weeks from last study, 11/29 as long as stable --continue ertapenem for GI coverage including Klebs/ecoli and anaerobes + micafungin for c. glabrata # Perioral HSV : acyclovir, slight dose adjustment for renal function acyclovir 400mg liquid QID x 5 days # Cdiff: Increased to treatment doses resolved diarrhea --plan 14 days at QID dosing then will drop back to BID --reviewed that safe for family to visit meds ertapenem 1gm IV daily, #15 micafungin 100mg IV daily, #9 vancomycin 125mg PO QID, #4 microbiology 11/07 peritoneal cx : Klebsiella, S-pending; E coli Rowe-S, c.glabrata R to fluconazole Subjective: minimal abdominal pain no further diarrhea Objective: Vital Signs Temp Pulse Resp BP Pulse Ox 37.1 C 79 16 103/72 94 11/22/16 07:58 11/22/16 08:30 11/22/16 08:30 11/22/16 08:24 11/22/16 08:30 Laboratory Results 11/20/16 05:40 11/20/16 05:40 11/21/16 11/22/16 11/23/16 05:59 05:59 05:59 Intake Total 1716 1845 Output Total 2065 690 Balance -349 1155 - Physical Exam General Appearance: alert, obese, non-toxic EENT: dry mucous membranes, No thrush Respiratory: lungs clear, No accessory muscle use Cardiac/Chest: regular rate, rhythm, systolic murmur Extremities: pedal edema Abdomen: non-tender, soft, other (R TIKA drain with small amount purulent material ) Pelvic Exam: No grande Skin: pallor, No rash Neuro/Psych: alert, normal mood/affect, oriented x 3 - Line/s RUE PICC Lines: No drainage, No erythema ICD10 Worksheet Patient Problems: Problems Problem Status Onset Intraperitoneal abscess Acute Palliative care encounter Acute Small bowel perforation Acute Ulcerative colitis Acute Chronic bronchitis Active Fracture of lower leg Active History of - deep vein thrombosis Active C. difficile diarrhea Acute 11/01/16 Diverticulitis Acute Femur fracture Acute
[2016-11-22] MEDS: MICAFUNGIN NA 100 MG in NS 100 ML IV SCH (10:40)
[2016-11-22 11:09] LABS: ANION GAP 6 mEq/L (8-16); CALCIUM 7.1 mg/dL (8.5-10.4); CARBON DIOXIDE 30 mEq/l (22-31); CHLORIDE 95 mEq/L (97-110); CREATININE 0.8 mg/dL (0.6-1.0); GLOMERULAR FILTRATION RATE > 60; POTASSIUM 5.8 mEq/L (3.5-5.2); SODIUM 131 mEq/L (134-144)
--- NOTE | 2016-11-22 11:23 | SOAPPROG ---
SOAP Progress Note Assessment/Plan: Assessment: Stable. Nocturnal TPN, rehab planning. Plan: 11/08/16 12:37 11/09/16 10:10 11/10/16 12:20 11/11/16 11:09 11/12/16 12:57 11/13/16 11:25 11/14/16 13:49 11/15/16 09:45 11/16/16 11:12 11/17/16 14:53 11/18/16 11:21 11/19/16 12:19 11/20/16 10:16 11/22/16 11:22 Subjective: Patient states pain improved. Amb with assist Objective: Vital Signs Temp Pulse Resp BP Pulse Ox 37.1 C 79 16 103/72 94 11/22/16 07:58 11/22/16 08:30 11/22/16 08:30 11/22/16 08:24 11/22/16 08:30 Laboratory Results 11/20/16 05:40 11/22/16 10:49 11/21/16 11/22/16 11/23/16 05:59 05:59 05:59 Intake Total 1716 1845 Output Total 2065 690 Balance -349 1155 PT 14.6 SEC (12.0-15.0) 11/20/16 05:40 INR 1.15 (0.83-1.16) 11/20/16 05:40 Alert, NAD Abd soft, [employer] C/D/I TIKA seropurulent ICD10 Worksheet Patient Problems: Problems Problem Status Onset Intraperitoneal abscess Acute Palliative care encounter Acute Small bowel perforation Acute Ulcerative colitis Acute Chronic bronchitis Active Fracture of lower leg Active History of - deep vein thrombosis Active C. difficile diarrhea Acute 11/01/16 Diverticulitis Acute Femur fracture Acute
[2016-11-22 11:39] LABS: GLUCOSE 774 mg/dL (70-100)
[2016-11-22 12:34] LABS: ALANINE AMINOTRANSFERASE 24 IU/L (9-52); ALBUMIN 2.3 g/dL (3.5-5.0); ALKALINE PHOSPHATASE 84 IU/L (38-126); ANION GAP 7 mEq/L (8-16); ASPARTATE AMINOTRANSFERASE 33 IU/L (14-46); BILIRUBIN,TOTAL 0.4 mg/dL (0.1-1.4); CALCIUM 7.7 mg/dL (8.5-10.4); CARBON DIOXIDE 33 mEq/l (22-31); CHLORIDE 96 mEq/L (97-110); CREATININE 0.6 mg/dL (0.6-1.0); GLOMERULAR FILTRATION RATE > 60; GLUCOSE 140 mg/dL (70-100); POTASSIUM 4.2 mEq/L (3.5-5.2); SODIUM 136 mEq/L (134-144); TOTAL PROTEIN 5.3 g/dL (6.3-8.2)
[2016-11-22] MEDS: ACYCLOVIR 200 MG/5 ML 60 ML BTL PO SCH ×3 (13:02→21:26)
--- NOTE | 2016-11-22 15:24 | HOSPPROG ---
Hospitalist Progress Note Assessment/Plan: 76 yo F w UC, recurrent cdiff, chronic steroids, presenting with bowel perf and abscess s/p drainage and repair with recurrent leak post operatively # bowel perforation/peritonitis: s/p repair and washout with now recurrent/ ongoing leak. Initial bowel perforation related either to diverticulitis versus inflammation in setting of UC and c diff. Slow to heal given chronic steroids, recurrent c diff. Attempting conservative mgmt with bowel rest, TPN, abx. continue ertapenem/micafungin for polymicrobial intra abdominal abscess. # abdominal pain: 2/2 above, today pain is well controlled, continue prn IV/ oral opiates # recurrent c diff: continue PO vanc while on broad spectrum abx, diarrhea has improved on tx dose vanc # h/o UC: on chronic steroids, currently weaning off of prednisone given above, decreasing pred--at baseline was on 30mg and now down to 10, will need to watch for s/s of AI on decreasing doses of pred # volume overload: 2/2 volume resuscitation, continue IV lasix daily for now and monitor. Still up 13kg since admission. # ileus/sbo: noted on imaging, continued NPO, TPN # anemia: has been stable, received 1 unit in ronnell op period # h/o DVT # nutrition: on TPN # pain: prn IV dilaudid, consider SENIOR USER EXPERIENCE ARCHITECT # code status: DNR, goals of care an ongoing conversation, palliative involved Subjective: no signficant overnight events, patient a bit somnolent today but arousable and states pain is well controlled Objective: Vital Signs Temp Pulse Resp BP Pulse Ox 36.7 C 80 18 109/69 95 11/22/16 12:00 11/22/16 12:00 11/22/16 12:00 11/22/16 12:00 11/22/16 12:00 Laboratory Results 11/20/16 05:40 11/22/16 12:00 11/21/16 11/22/16 11/23/16 05:59 05:59 05:59 Intake Total 1716 1845 Output Total 2065 690 1200 Balance -349 1155 -1200 PT 14.6 SEC (12.0-15.0) 11/20/16 05:40 INR 1.15 (0.83-1.16) 11/20/16 05:40 somnolent arousable anicteric op clear rrr no mrg cta but dec at bases distended, firm, asymmetrical, dec bs trace ble edema warm dry well perfused oriented appropriate ICD10 Worksheet Patient Problems: Problems Problem Status Onset Intraperitoneal abscess Acute Palliative care encounter Acute Small bowel perforation Acute Ulcerative colitis Acute Chronic bronchitis Active Fracture of lower leg Active History of - deep vein thrombosis Active C. difficile diarrhea Acute 11/01/16 Diverticulitis Acute Femur fracture Acute
[2016-11-22] MEDS: TPN W/ FAMOTIDINE 1 EA BAG IV SCH (21:17)
[2016-11-23] MEDS: INSULIN REGULAR, HUMAN 100 UNIT/1 ML VIAL STANDARD SC SCH ×4 (00:53→18:25)
[2016-11-23] MEDS: oxyCODONE IR 5 MG TAB PO PRN ×2 (04:02→21:34)
[2016-11-23 04:34] LABS: IONIZED CALCIUM 1.08 MMOL/L (1.12-1.30)
[2016-11-23] MEDS: VANCOMYCIN 125 MG/2.5 ML UDL PO SCH ×4 (05:33→21:34)
[2016-11-23] MEDS: ACYCLOVIR 200 MG/5 ML 60 ML BTL PO SCH ×4 (05:36→23:07)
[2016-11-23] MEDS ORDERED: CALCIUM GLUCONATE 50 ML IV ONE (08:26)
[2016-11-23] MEDS: METOPROLOL TARTRATE 25 MG TAB PO SCH ×3 (09:00→21:34)
[2016-11-23] MEDS: predniSONE 10 MG TAB PO SCH (09:00)
[2016-11-23] MEDS ORDERED: FUROSEMIDE 20 MG/2 ML VIAL IVP SCH (09:00)
[2016-11-23] MEDS: ENOXAPARIN 40 MG/0.4 ML SYR SC SCH (09:01)
[2016-11-23] MEDS: MICAFUNGIN NA 100 MG in NS 100 ML IV SCH (09:01)
[2016-11-23] MEDS: ERTAPENEM 1 GM in NS 100 ML IV SCH (09:01)
[2016-11-23] MEDS: MENTHOL/CAMPHOR 222 ML BOTTLE TP SCH (09:03)
[2016-11-23] MEDS: FUROSEMIDE 40 MG/4 ML VIAL IVP SCH ×2 (10:06→16:06)
[2016-11-23] MEDS: ONDANSETRON 4 MG/2 ML VIAL IVP PRN (10:32)
[2016-11-23] MEDS: FLUTICASONE/SALMETER 250/50MCG DISKUS IH SCH ×2 (10:38→20:30)
[2016-11-23 13:45] LABS: % IMMATURE GRANULYOCYTES 1.1 % (0.0-1.1); ADD DIFF? NO; ADD MORPH? YES; ADD SCAN? NO; ATYPICAL LYMPHOCYTE FLAG 0 (0-99); HEMATOCRIT 31.5 % (38.0-47.0); HEMOGLOBIN 9.7 g/dL (12.6-16.3); LEFT SHIFT FLG 50 (0-99); LIPEMIA HEMOLYSIS FLAG 80 (0-99); MEAN CELL HEMOGLOBIN 25.3 pg (27.9-34.1); MEAN CELL HEMOGLOBIN CONCENTR. 30.8 g/dL (32.4-36.7); MEAN CELL VOLUME 82.2 fL (81.5-99.8); MEAN PLATELET VOLUME 10.4 fL (8.7-11.7); PLATELET CLUMPS FLAG 10 (0-99); PLATELET COUNT 327 10^3/uL (150-400); RED BLOOD CELL COUNT 3.83 10^6/uL (4.18-5.33)
[2016-11-23 13:53] LABS: FRAGMENT RBC FLAG 120 (0-99); RED CELL DISTRIBUTION WIDTH 21.1 % (11.5-15.2)
[2016-11-23 14:05] LABS: ALANINE AMINOTRANSFERASE 30 IU/L (9-52); ALBUMIN 2.6 g/dL (3.5-5.0); ALKALINE PHOSPHATASE 105 IU/L (38-126); ANION GAP 6 mEq/L (8-16); ASPARTATE AMINOTRANSFERASE 42 IU/L (14-46); BILIRUBIN,TOTAL 0.5 mg/dL (0.1-1.4); CARBON DIOXIDE 32 mEq/l (22-31); CHLORIDE 97 mEq/L (97-110); CREATININE 0.7 mg/dL (0.6-1.0); GLOMERULAR FILTRATION RATE > 60; GLUCOSE 124 mg/dL (70-100); POTASSIUM 4.6 mEq/L (3.5-5.2); SODIUM 135 mEq/L (134-144); TOTAL PROTEIN 6.1 g/dL (6.3-8.2)
--- NOTE | 2016-11-23 15:31 | SOAPPROG ---
SOAP Progress Note Assessment/Plan: Assessment: Stable. Patient and wish to return to 24 hour TPN. Plan rehab/SNF. Plan: 11/08/16 12:37 11/09/16 10:10 11/10/16 12:20 11/11/16 11:09 11/12/16 12:57 11/13/16 11:25 11/14/16 13:49 11/15/16 09:45 11/16/16 11:12 11/17/16 14:53 11/18/16 11:21 11/19/16 12:19 11/20/16 10:16 11/22/16 11:22 11/23/16 15:29 Subjective: Patient c/o nausea, no emesis. + diarrhea. Objective: Vital Signs Temp Pulse Resp BP Pulse Ox 36.9 C 95 20 127/84 H 90 L 11/23/16 10:44 11/23/16 10:44 11/23/16 10:44 11/23/16 10:44 11/23/16 10:44 Laboratory Results 11/23/16 13:35 11/23/16 13:35 11/22/16 11/23/16 11/24/16 05:59 05:59 05:59 Intake Total 1845 1689 Output Total 690 2415 300 Balance 1155 -726 -300 PT 14.6 SEC (12.0-15.0) 11/20/16 05:40 INR 1.15 (0.83-1.16) 11/20/16 05:40 Alert, NAD Abd soft, [employer] without erythema TIKA dark/bilious ICD10 Worksheet Patient Problems: Problems Problem Status Onset Intraperitoneal abscess Acute Palliative care encounter Acute Small bowel perforation Acute Ulcerative colitis Acute Chronic bronchitis Active Fracture of lower leg Active History of - deep vein thrombosis Active C. difficile diarrhea Acute 11/01/16 Diverticulitis Acute Femur fracture Acute
[2016-11-23 16:11] LABS: HYPOCHROMIA 2+; MICROCYTES 1+; SCHISTOCYTES 1+
[2016-11-23 16:12] LABS: PLATELET ESTIMATE ADEQUATE (ADEQ)
--- NOTE | 2016-11-23 16:27 | PDPCPN ---
Palliative Care Progress Note Assessment/Plan: HPI: Yelitza Ansari is a 76 yo female with pMH ulcerative colitis, recurrent c diff, a fib, DVT admitted to the hospital with increasing abdominal pain and nausea/ distention. Found to have bowel perf with abscess. Recently started on antibiotics for recurrent c diff as outpt. s/p drainage and repair of leak with complications of recurrent leak post op requiring bowel rest and TPN. With ongoing pain and nausea. Patient is not wanting to continue with aggressive medical interventions. Palliative care consulted for complex medical decision making. Met with and daughter at the bedside this morning. Conversation was limited as Yelitza was feeling poorly with ongoing abdominal pain and nausea. She continues to have frequent bowel movements with urgency. Yelitza stated today that "maybe this is the end". She was not able to speak much due to her symptoms and preferred to have a detailed meeting another day. Her family was concerned as for the past 2 days she has been doing very well with improvement in her mobility and less nausea/pain. Discussed again role of palliative care is to support someone with chronic illness to work with someone's wishes which may or may not be end of life in nature. Assessment: Physical: - Pain: abdominal pain - can try scop patch for cramping pain - on oxy IR and dilaudid PRN - if pain is consistent might consider GRAIN PICKER to help with independence and pain - Nausea: - if continues might try scop patch to help - constipation - at risk with opiates - monitor and when able start bowel regimen Emotional/psychological: feeling hopeless and overwhelmed. Does not see how she will get better Advanced Care Planning: Is patient decisional?: Yes Code Status: DNR POA: is MDPOA Plan: Will continue to follow along to help with goals of care and family grief. Subjective: I feel so bad today Objective: Vital Signs Temp Pulse Resp BP Pulse Ox 36.3 C 88 20 126/66 H 94 11/23/16 16:00 11/23/16 16:06 11/23/16 16:00 11/23/16 16:06 11/23/16 16:00 Laboratory Results 11/23/16 13:35 11/23/16 13:35 11/22/16 11/23/16 11/24/16 05:59 05:59 05:59 Intake Total 1845 0399 Output Total 163 2655 300 Balance 1155 -726 -300 PT 14.6 SEC (12.0-15.0) 11/20/16 05:40 INR 1.15 (0.83-1.16) 11/20/16 05:40 Physical Exam - Physical Exam General Appearance: alert, mild distress Respiratory: No respiratory distress, No accessory muscle use Skin: normal color, warm/dry Extremities: pedal edema Neuro/Psych: alert, oriented x 3 ICD10 Worksheet Patient Problems: Problems Problem Status Onset Intraperitoneal abscess Acute Palliative care encounter Acute Small bowel perforation Acute Ulcerative colitis Acute Chronic bronchitis Active Fracture of lower leg Active History of - deep vein thrombosis Active C. difficile diarrhea Acute 11/01/16 Diverticulitis Acute Femur fracture Acute - ICD10 Problem Qualifiers (1) Palliative care encounter
--- NOTE | 2016-11-23 17:11 | HOSPPROG ---
Hospitalist Progress Note Assessment/Plan: assessment: 76 yo F w UC, recurrent cdiff, chronic steroids, presenting with bowel perf and abscess s/p drainage and repair with recurrent leak post operatively Plan: # bowel perforation/peritonitis: s/p repair and washout with now recurrent/ ongoing leak -Initial bowel perforation related either to diverticulitis versus inflammation in setting of UC and c diff -Slow to heal given chronic steroids, recurrent c diff -Attempting conservative mgmt with bowel rest, TPN, abx -continue ertapenem/micafungin for polymicrobial intra abdominal abscess # abdominal pain: 2/2 above, today pain is well controlled but pt does c/o nausea which family attributes to change in TPN schedule -continue prn IV/oral opiates -would rec continuing TPN on the HS schedule, as the liver panel demonstrates no e/o biliary stasis and her abd symptoms are more likely related to above, and have nothing to do w/ the timing of TPN # recurrent c diff: continue PO vanc while on broad spectrum abx, diarrhea has improved on tx dose vanc # h/o UC: on chronic steroids, currently weaning off of prednisone given above, decreasing pred--at baseline was on 30mg and now down to 10, will need to watch for s/s of AI on decreasing doses of pred # volume overload: acute, new problem, further w/u indicated. 2/2 volume resuscitation, net positive 17kg LOS w/ hypoxia -outside records reviewed including 04/01/16 Echo demonstrating LVH, possible diastolic dysfunction -get CXR and BNP to eval for dCHF -increase lasix today to 40mg bid -monitor UOP # ileus/sbo: noted on imaging, continued NPO, TPN # anemia: has been stable, received 1 unit in ronnell op period # atrial fibrillation and atrial flutter: currently in afib rate controlled on tele (personally interpreted) -cont metop 12.5 tid -holding xarelto given possible surg # depressed mood: patient endorsing depression, has been episodic but recurrent in the setting of severe illness -appreciate consult by Linda Lopez -offered patient SSRI, she has declined -patient would like to continue counseling w/ SAV # ppx: high risk, h/o DVT, on lovenox 40 # diet: on TPN # code status: DNR, goals of care an ongoing conversation, palliative involved # dispo: ADD uncertain, remains highly complex w/ high risk worsening morbidity/ mortality Subjective: Patient feels depressed, she is having frequent loose bowel movements, she is urinating frequently Objective: Vital Signs Temp Pulse Resp BP Pulse Ox 36.3 C 88 20 126/66 H 94 11/23/16 16:00 11/23/16 16:06 11/23/16 16:00 11/23/16 16:06 11/23/16 16:00 Laboratory Results 11/23/16 13:35 11/23/16 13:35 11/22/16 11/23/16 11/24/16 05:59 05:59 05:59 Intake Total 1845 1689 Output Total 690 2415 300 Balance 1155 -726 -300 PT 14.6 SEC (12.0-15.0) 11/20/16 05:40 INR 1.15 (0.83-1.16) 11/20/16 05:40 - Physical Exam Constitutional: no apparent distress, not in pain, chronically ill appearing, No uncomfortable Cardiovascular: irregularly irregular, No systolic murmur, No tachycardia, No edema Respiratory: no respiratory distress, no rales or rhonchi, clear to auscultation Gastrointestinal: normoactive bowel sounds, tenderness ( very mild to moderate palpation), distension ( moderately), No guarding Skin: other ( no erythema, induration, fluctuance, tenderness at the surgical site with the TIKA drain is) Neurologic: AAOx3, No weakness ( motor strength 5/5 bilateral lower x-ray) Psychiatric: not encephalopathic, thought process linear, anxious, depressed, No agitated ICD10 Worksheet Patient Problems: Problems Problem Status Onset Intraperitoneal abscess Acute Palliative care encounter Acute Small bowel perforation Acute Ulcerative colitis Acute Chronic bronchitis Active Fracture of lower leg Active History of - deep vein thrombosis Active C. difficile diarrhea Acute 11/01/16 Diverticulitis Acute Femur fracture Acute
[2016-11-23] MEDS: TPN W/ FAMOTIDINE 1 EA BAG IV SCH (21:24)
[2016-11-24] MEDS: INSULIN REGULAR, HUMAN 100 UNIT/1 ML VIAL STANDARD SC SCH ×5 (00:02→23:23)
[2016-11-24] MEDS: VANCOMYCIN 125 MG/2.5 ML UDL PO SCH ×4 (05:05→20:50)
[2016-11-24] MEDS: ACYCLOVIR 200 MG/5 ML 60 ML BTL PO SCH (05:15)
[2016-11-24 05:22] LABS: % IMMATURE GRANULYOCYTES 0.9 % (0.0-1.1); ABSOLUTE IMMATURE GRANULOCYTES 0.05 10^3/uL (0.00-0.10); ADD DIFF? NO; ADD MORPH? YES; ADD SCAN? NO; ATYPICAL LYMPHOCYTE FLAG 0 (0-99); FRAGMENT RBC FLAG 20 (0-99); HEMATOCRIT 26.4 % (38.0-47.0); HEMOGLOBIN 8.1 g/dL (12.6-16.3); LEFT SHIFT FLG 20 (0-99); LIPEMIA HEMOLYSIS FLAG 80 (0-99); MEAN CELL HEMOGLOBIN 25.7 pg (27.9-34.1); MEAN CELL HEMOGLOBIN CONCENTR. 30.7 g/dL (32.4-36.7); MEAN CELL VOLUME 83.8 fL (81.5-99.8); MEAN PLATELET VOLUME 10.8 fL (8.7-11.7); PLATELET CLUMPS FLAG 0 (0-99); PLATELET COUNT 268 10^3/uL (150-400); RED BLOOD CELL COUNT 3.15 10^6/uL (4.18-5.33)
[2016-11-24 05:39] LABS: ALANINE AMINOTRANSFERASE 24 IU/L (9-52); ALBUMIN 2.2 g/dL (3.5-5.0); ALKALINE PHOSPHATASE 85 IU/L (38-126); ANION GAP 6 mEq/L (8-16); ASPARTATE AMINOTRANSFERASE 30 IU/L (14-46); BILIRUBIN,TOTAL 0.5 mg/dL (0.1-1.4); CALCIUM 7.7 mg/dL (8.5-10.4); CARBON DIOXIDE 34 mEq/l (22-31); CHLORIDE 97 mEq/L (97-110); CREATININE 0.8 mg/dL (0.6-1.0); GLOMERULAR FILTRATION RATE > 60; GLUCOSE 114 mg/dL (70-100); SODIUM 137 mEq/L (134-144); TOTAL PROTEIN 5.1 g/dL (6.3-8.2)
[2016-11-24 05:42] LABS: RED CELL DISTRIBUTION WIDTH 21.2 % (11.5-15.2)
[2016-11-24 06:21] LABS: HYPOCHROMIA 1+; MICROCYTES 1+; PLATELET ESTIMATE ADEQUATE (ADEQ); POLYCHROMASIA 1+
[2016-11-24 06:22] LABS: SCHISTOCYTES 1+
[2016-11-24] MEDS: ERTAPENEM 1 GM in NS 100 ML IV SCH (09:21)
[2016-11-24] MEDS: MICAFUNGIN NA 100 MG in NS 100 ML IV SCH (09:23)
[2016-11-24] MEDS: FUROSEMIDE 40 MG/4 ML VIAL IVP SCH ×2 (09:24→15:42)
[2016-11-24] MEDS: ENOXAPARIN 40 MG/0.4 ML SYR SC SCH (09:24)
[2016-11-24] MEDS: predniSONE 10 MG TAB PO SCH (09:24)
[2016-11-24] MEDS: METOPROLOL TARTRATE 25 MG TAB PO SCH ×3 (09:24→20:50)
[2016-11-24] MEDS: oxyCODONE IR 5 MG TAB PO PRN (10:14)
[2016-11-24] MEDS: MENTHOL/CAMPHOR 222 ML BOTTLE TP SCH (10:20)
--- NOTE | 2016-11-24 10:46 | PCMIDPN ---
Assessment/Plan: 1. Polymicrobial peritonitis after sigmoid perforation status post repair in patient with history of diverticulitis and inflammatory bowel disease: On appropriate coverage with ertapenem and Micafungin. Continues to have feculent drainage from TIKA drain. Repeat CT of the abdomen and pelvis planned for November 29. Prednisone dose being reduced in hopes of improving chances of healing. On TPN. 2. Soft and hard palate ulcerations: These were swabbed for HSV and VZV PCR. The patient thinks that the oral acyclovir is making her sick and nauseated. She does not want to take this. For now, she and her and I decided to stop this medication altogether and see what the PCR shows. She may need intravenous acyclovir, and I warned her of this. For now, the patient would prefer not to be on any new medications. If the ulcerations are more extensive in the morning and involved her buccal mucosa, I told her that we would empirically start intravenous acyclovir and she understood. Of note, she states she has never had oral ulcerations that she is aware of in association with her inflammatory bowel disease, per se. No skin lesions concerning for disseminated HSV or VZV. Of note, I could not appreciate any labial HSV. 3. C difficile colitis: On treatment dose vancomycin. Over 35 minutes was spent with this patient. 11/24/16 10:49 Subjective: Both the patient and her tell me that she had a bad day yesterday, with several watery bowel movements and persistent nausea. She is refusing the oral acyclovir and feels that this is contributing. She has not vomited, per se. Today, she had 1 watery bowel movement. Objective: Vital Signs Ertapenem 1 g IV daily day 16 Micafungin 100 mg IV daily day 10 Vancomycin 125 mg p.o. four times daily day 5 Afebrile Temp Pulse Resp BP Pulse Ox 36.8 C 90 18 109/62 95 11/24/16 08:00 11/24/16 08:00 11/24/16 08:00 11/24/16 08:00 11/24/16 08:00 Laboratory Results 11/24/16 05:00 11/24/16 05:00 11/23/16 11/24/16 11/25/16 05:59 05:59 05:59 Intake Total 3347 1024 Output Total 5211 1283 Balance -726 -1641 No new microbiology - Physical Exam General Appearance: alert, other (Looks tired) EENT: other (Several small superficial ulcerations on the hard and soft palate. No evidence of thrush. No other lesions noted no lesions on her tongue or labial lesions.) Respiratory: lungs clear Cardiac/Chest: irregularly irregular Extremities: pedal edema Abdomen: distended, other (Right and left lower quadrant tenderness. Drain with feculent debris/liquid) Skin: other (PICC line right upper extremity looks fine), No rash ICD10 Worksheet Patient Problems: Problems Problem Status Onset Intraperitoneal abscess Acute Palliative care encounter Acute Small bowel perforation Acute Ulcerative colitis Acute Chronic bronchitis Active Fracture of lower leg Active History of - deep vein thrombosis Active C. difficile diarrhea Acute 11/01/16 Diverticulitis Acute Femur fracture Acute
[2016-11-24] MEDS: FLUTICASONE/SALMETER 250/50MCG DISKUS IH SCH ×2 (13:08→22:03)
--- NOTE | 2016-11-24 16:48 | SOAPPROG ---
SOAP Progress Note Assessment/Plan: Assessment: Stable. Cont conservative management. Plan: 11/08/16 12:37 11/09/16 10:10 11/10/16 12:20 11/11/16 11:09 11/12/16 12:57 11/13/16 11:25 11/14/16 13:49 11/15/16 09:45 11/16/16 11:12 11/17/16 14:53 11/18/16 11:21 11/19/16 12:19 11/20/16 10:16 11/22/16 11:22 11/23/16 15:29 11/24/16 16:47 Subjective: No new complaints, some diarrhea Objective: Vital Signs Temp Pulse Resp BP Pulse Ox 36.9 C 87 16 125/76 H 95 11/24/16 15:48 11/24/16 15:48 11/24/16 15:48 11/24/16 15:48 11/24/16 15:48 Laboratory Results 11/24/16 05:00 11/24/16 05:00 11/23/16 11/24/16 11/25/16 05:59 05:59 05:59 Intake Total 1689 1024 Output Total 2415 7684 900 Balance -648 -164 -900 PT 14.6 SEC (12.0-15.0) 11/20/16 05:40 INR 1.15 (0.83-1.16) 11/20/16 05:40 Alert, NAD Abd soft Inc without erythema TIKA dark/feculent ICD10 Worksheet Patient Problems: Problems Problem Status Onset Intraperitoneal abscess Acute Palliative care encounter Acute Small bowel perforation Acute Ulcerative colitis Acute Chronic bronchitis Active Fracture of lower leg Active History of - deep vein thrombosis Active C. difficile diarrhea Acute 11/01/16 Diverticulitis Acute Femur fracture Acute
--- NOTE | 2016-11-24 18:34 | HOSPPROG ---
Hospitalist Progress Note Assessment/Plan: Assessment: 76 yo F w UC, recurrent cdiff, chronic steroids, presenting with bowel perf and abscess s/p drainage and repair with persistent leak post- operatively Plan: # bowel perforation/peritonitis: s/p repair and washout with now recurrent/ ongoing leak, continues to drain via TIKA -Slow to heal given chronic steroids, recurrent c diff -Attempting conservative mgmt with bowel rest, TPN, abx -continue ertapenem/micafungin for polymicrobial intra abdominal abscess -d/w Dr. Diaz, she is nearing surgical readiness for discharge, as she will only require q weekly surgical physician assessments (which can be conducted in clinic, from [facility]), anticipates 6-8 weeks of slow healing time -d/w Dr. Dupree, she recommends outpatient routine imaging studies of abdomen to monitor for recurrent abscess formation, cont monitor WBC # abdominal pain: 2/2 above, today pain is well controlled but pt does c/o nausea which family attributes to change in TPN schedule -continue prn IV/oral opiates and tx supportively and anti-emetics -I do not believe that the abdominal symptoms are 2/2 changing the TPN from continuous to HS, and I counseled the patient/daughter that TPN should be continued as HS -counseled patient that it is likely she will continue to experience intermittent abdominal symptoms during the next 6 weeks as the healing process continues # recurrent c diff: continue PO vanc while on broad spectrum abx # h/o UC: on chronic steroids, currently weaning off of prednisone given above, decreasing pred--at baseline was on 30mg and now down to 10, will need to watch for s/s of AI on decreasing doses of pred # acute diastolic CHF exacerbation: 2/2 volume resuscitation, net positive 17kg LOS w/ hypoxia, CXR w/ mod R effusion, echo w/ LVH -cont lasix 40mg bid -monitor UOP -net neg 1.6L o/n # ileus/sbo: noted on imaging, continued NPO, TPN # anemia: has been stable, received 1 unit in ronnell op period # atrial fibrillation and atrial flutter: currently in afib rate controlled on tele -cont metop 12.5 tid -holding xarelto given recent surg, d/w Dr. Diaz prior to restarting # depressed mood: patient endorsing depression, has been episodic but recurrent in the setting of severe illness -appreciate consult by Linda Lopez -offered patient SSRI, she has declined -patient would like to continue counseling w/ SAV # ppx: high risk, h/o DVT, on lovenox 40 # diet: on TPN # code status: DNR, goals of care an ongoing conversation, palliative involved # dispo: ADD 11/25 vs. 11/26, remains highly complex Subjective: Patient reports that she has only had 2 loose bowel movements today Objective: Vital Signs Temp Pulse Resp BP Pulse Ox 36.9 C 87 16 125/76 H 95 11/24/16 15:48 11/24/16 15:48 11/24/16 15:48 11/24/16 15:48 11/24/16 15:48 Laboratory Results 11/24/16 05:00 11/24/16 05:00 11/23/16 11/24/16 11/25/16 05:59 05:59 05:59 Intake Total 1689 1024 Output Total 5971 6136 1999 [facility] -726 -1641 -1999 PT 14.6 SEC (12.0-15.0) 11/20/16 05:40 INR 1.15 (0.83-1.16) 11/20/16 05:40 - Time Spent With Patient Time Spent with Patient: greater than 35 minutes Time Spent with Patient: Greater than 35 minutes spent on this patients care, greater than 50% of time spent counseling, educating, and coordinating care regarding the above mentioned plan. - Physical Exam Constitutional: not in pain, chronically ill appearing Cardiovascular: irregularly irregular, edema (2+ bilateral lower extremity), No tachycardia Respiratory: reduced air movement (Right base), inspiratory crackles (Left base) Gastrointestinal: distension (Moderate), other (TIKA drain in place), No tenderness Skin: other (No Surrounding erythema or induration at the TIKA site) Neurologic: AAOx3 Psychiatric: not encephalopathic, anxious, No agitated ICD10 Worksheet Patient Problems: Problems Problem Status Onset Intraperitoneal abscess Acute Palliative care encounter Acute Small bowel perforation Acute Ulcerative colitis Acute Chronic bronchitis Active Fracture of lower leg Active History of - deep vein thrombosis Active C. difficile diarrhea Acute 11/01/16 Diverticulitis Acute Femur fracture Acute
[2016-11-24] MEDS: TPN W/ FAMOTIDINE 1 EA BAG IV SCH (20:40)
[2016-11-25] MEDS: oxyCODONE IR 5 MG TAB PO PRN ×3 (06:03→18:05)
[2016-11-25] MEDS: VANCOMYCIN 125 MG/2.5 ML UDL PO SCH ×4 (06:04→20:48)
[2016-11-25] MEDS: INSULIN REGULAR, HUMAN 100 UNIT/1 ML VIAL STANDARD SC SCH ×4 (06:23→23:57)
[2016-11-25 06:25] LABS: FRAGMENT RBC FLAG 20 (0-99); HEMATOCRIT 28.4 % (38.0-47.0); HEMOGLOBIN 8.6 g/dL (12.6-16.3); LEFT SHIFT FLG 20 (0-99); LIPEMIA HEMOLYSIS FLAG 80 (0-99); MEAN CELL HEMOGLOBIN 25.4 pg (27.9-34.1); MEAN CELL HEMOGLOBIN CONCENTR. 30.3 g/dL (32.4-36.7); MEAN CELL VOLUME 83.8 fL (81.5-99.8); MEAN PLATELET VOLUME 10.3 fL (8.7-11.7); PLATELET CLUMPS FLAG 0 (0-99); PLATELET COUNT 291 10^3/uL (150-400); RED BLOOD CELL COUNT 3.39 10^6/uL (4.18-5.33)
[2016-11-25 06:32] LABS: ADD DIFF? YES; ADD SCAN? NO; ATYPICAL LYMPHOCYTE FLAG 110 (0-99); RED CELL DISTRIBUTION WIDTH 21.2 % (11.5-15.2)
[2016-11-25 06:37] LABS: ADD MORPH? NO
[2016-11-25 06:38] LABS: ANION GAP 5 mEq/L (8-16); CALCIUM 7.7 mg/dL (8.5-10.4); CARBON DIOXIDE 32 mEq/l (22-31); CHLORIDE 101 mEq/L (97-110); CREATININE 0.7 mg/dL (0.6-1.0); GLOMERULAR FILTRATION RATE > 60; GLUCOSE 137 mg/dL (70-100); MAGNESIUM 2.3 mg/dL (1.6-2.3); POTASSIUM 3.7 mEq/L (3.5-5.2); SODIUM 138 mEq/L (134-144)
[2016-11-25 07:12] LABS: ELLIPTOCYTES 1+; HYPOCHROMIA 2+; MICROCYTES 1+; PLATELET ESTIMATE ADEQUATE (ADEQ); POLYCHROMASIA 1+
[2016-11-25] MEDS: METOPROLOL TARTRATE 25 MG TAB PO SCH ×3 (08:53→20:48)
[2016-11-25] MEDS: predniSONE 10 MG TAB PO SCH (08:53)
[2016-11-25] MEDS: FUROSEMIDE 40 MG/4 ML VIAL IVP SCH ×2 (08:53→15:08)
[2016-11-25] MEDS: ENOXAPARIN 40 MG/0.4 ML SYR SC SCH (08:53)
[2016-11-25] MEDS: ERTAPENEM 1 GM in NS 100 ML IV SCH (08:53)
[2016-11-25] MEDS: FLUTICASONE/SALMETER 250/50MCG DISKUS IH SCH ×2 (09:19→21:04)
[2016-11-25] MEDS: MENTHOL/CAMPHOR 222 ML BOTTLE TP SCH (09:25)
[2016-11-25] MEDS: MICAFUNGIN NA 100 MG in NS 100 ML IV SCH (09:52)
--- NOTE | 2016-11-25 10:29 | SOAPPROG ---
SOAP Progress Note Assessment/Plan: Assessment: Stable to improving. Cont NPO/TIKA/TPN Plan: 11/08/16 12:37 11/09/16 10:10 11/10/16 12:20 11/11/16 11:09 11/12/16 12:57 11/13/16 11:25 11/14/16 13:49 11/15/16 09:45 11/16/16 11:12 11/17/16 14:53 11/18/16 11:21 11/19/16 12:19 11/20/16 10:16 11/22/16 11:22 11/23/16 15:29 11/24/16 16:47 11/25/16 10:28 Subjective: Patient feels better, pain improved, no N. Objective: Vital Signs Temp Pulse Resp BP Pulse Ox 36.8 C 99 14 120/59 L 96 11/25/16 07:36 11/25/16 07:36 11/25/16 07:36 11/25/16 07:36 11/25/16 07:36 Laboratory Results 11/25/16 06:00 11/25/16 06:00 11/24/16 11/25/16 11/26/16 05:59 05:59 05:59 Intake Total 1024 2304 Output Total 2665 3700 660 Balance -1641 -3700 1644 PT 14.6 SEC (12.0-15.0) 11/20/16 05:40 INR 1.15 (0.83-1.16) 11/20/16 05:40 Alert, NAD Abd NTTP Inc without erythema TIKA dark/purulent ICD10 Worksheet Patient Problems: Problems Problem Status Onset Intraperitoneal abscess Acute Palliative care encounter Acute Small bowel perforation Acute Ulcerative colitis Acute Chronic bronchitis Active Fracture of lower leg Active History of - deep vein thrombosis Active C. difficile diarrhea Acute 11/01/16 Diverticulitis Acute Femur fracture Acute
[2016-11-25] MEDS ORDERED: POTASSIUM Cl (KCl) 50 ML IV ONE (12:00)
[2016-11-25] MEDS ORDERED: HYDROmorphONE/DILAUDID 1 MG/ML SYR IVP PRN (13:44)
--- NOTE | 2016-11-25 16:13 | HOSPPROG ---
Hospitalist Progress Note Assessment/Plan: Assessment: 76 yo F w UC, recurrent cdiff, chronic steroids, presenting with bowel perf and abscess s/p drainage and repair with persistent leak post- operatively Plan: # bowel perforation/peritonitis: s/p repair and washout with now recurrent/ ongoing leak, continues to drain via TIKA -Slow to heal given chronic steroids, recurrent c diff -Attempting conservative mgmt with NPO / bowel rest, TPN, abx -continue ertapenem/micafungin for polymicrobial intra abdominal abscess -per surgical team, she will require q weekly surgical physician assessments ( which can be conducted in clinic, from [facility]), anticipates 6-8 weeks of slow healing time -d/w ID, they recommend outpatient routine imaging studies of abdomen to monitor for recurrent abscess formation, cont to monitor WBC # recurrent c diff: continue PO vanc while on broad spectrum abx # h/o UC: on chronic steroids, weaning off of prednisone given above, at baseline was on 30mg and now down to 10, will need to watch for s/s of AI on decreasing doses of pred. -decrease prednisone to 5 mg daily # acute diastolic CHF exacerbation: 2/2 volume resuscitation, w/ hypoxia, CXR w / mod R effusion, echo w/ LVH. wt 63 kg on admit, up to 85 kg, now down to 77 kg. -cont lasix 40mg bid -monitor I&O's, daily weights -follow BMP while diuresing, BUN on the rise # oral ulcers: HSV swab pending # ileus/sbo: noted on imaging, continued NPO, TPN # anemia: has been stable, received 1 unit in ronnell op period # atrial fibrillation and atrial flutter: currently in afib rate controlled on tele -cont metop 12.5 tid -pplx dose lovenox -holding xarelto given recent surg, d/w Dr. Diaz prior to restarting # depressed mood: patient endorsing depression, has been episodic but recurrent in the setting of severe illness -appreciate consult by Linda Lopez -offered patient SSRI, she has declined -patient would like to continue counseling w/ SAV # ppx: high risk, h/o DVT, on lovenox 40 # diet: on TPN # code status: DNR, goals of care an ongoing conversation, palliative involved # dispo: cont inpt, remains highly complex Subjective: Pt feels okay today, still depressed. No significant pain today. No fevers/chills. Objective: Vital Signs Temp Pulse Resp BP Pulse Ox 36.8 C 73 18 108/68 96 11/25/16 15:23 11/25/16 15:23 11/25/16 15:23 11/25/16 15:23 11/25/16 15:23 Laboratory Results 11/25/16 06:00 11/25/16 06:00 11/24/16 11/25/16 11/26/16 05:59 05:59 05:59 Intake Total 1024 2354 Output Total 2665 3700 2210 Balance -1641 -3700 144 PT 14.6 SEC (12.0-15.0) 11/20/16 05:40 INR 1.15 (0.83-1.16) 11/20/16 05:40 - Physical Exam Constitutional: no apparent distress Ears, Nose, Mouth, Throat: moist mucous membranes Cardiovascular: irregularly irregular Respiratory: no respiratory distress, clear to auscultation Gastrointestinal: normoactive bowel sounds, other (soft, nd/nt, incision c/d/i, minimal erythema along staple line, still with green/feculent appearing drainage from TIKA) Musculoskeletal: other (2+ b/l LE pitting edema though improving) Neurologic: AAOx3 Psychiatric: interacting appropriately, depressed ICD10 Worksheet Patient Problems: Problems Problem Status Onset Intraperitoneal abscess Acute Palliative care encounter Acute Small bowel perforation Acute Ulcerative colitis Acute Chronic bronchitis Active Fracture of lower leg Active History of - deep vein thrombosis Active C. difficile diarrhea Acute 11/01/16 Diverticulitis Acute Femur fracture Acute
--- NOTE | 2016-11-25 16:21 | PCMIDPN ---
Assessment/Plan: Assessment/Plan: * Polymicrobial peritonitis due to sigmoid perforation status post incision and drainage/perforation closure with ongoing leak: Clinically stable with persistent TIKA output. Continue ertapenem and micafungin. Follow drain output with bowel rest in antibiotic therapy. * History of C difficile colitis: Diarrhea improved after increasing oral vancomycin to treatment doses at four times daily. * Oral ulcerations: Resolving. HSV PCR pending. 11/25/16 16:16 Subjective: Patient feels about the same. Soft stool without diarrhea. Does not have any oropharyngeal pain. Objective: Vital Signs Temp Pulse Resp BP Pulse Ox 36.8 C 73 18 108/68 96 11/25/16 15:23 11/25/16 15:23 11/25/16 15:23 11/25/16 15:23 11/25/16 15:23 Laboratory Results 11/25/16 06:00 11/25/16 06:00 11/24/16 11/25/16 11/26/16 05:59 05:59 05:59 Intake Total 1024 2354 Output Total 2665 3700 2210 Balance -1641 -3700 144 Ertapenem # 17 Micafungin # 11 Vancomycin four times daily # 6 (total including prior twice daily dosing # 13) - Physical Exam General Appearance: alert, no apparent distress EENT: other (Oral ulcerations resolving with only hyperemia present along palate ), No scleral icterus Cardiac/Chest: irregularly irregular Abdomen: non-tender, distended (Mild), other (TIKA with green output) ICD10 Worksheet Patient Problems: Problems Problem Status Onset Small bowel perforation Acute Intraperitoneal abscess Acute Palliative care encounter Acute Ulcerative colitis Acute History of - deep vein thrombosis Active Chronic bronchitis Active Fracture of lower leg Active Diverticulitis Acute Femur fracture Acute C. difficile diarrhea Acute 11/01/16
[2016-11-25] MEDS: TPN W/ FAMOTIDINE 1 EA BAG IV SCH (20:49)
[2016-11-26] MEDS: INSULIN REGULAR, HUMAN 100 UNIT/1 ML VIAL STANDARD SC SCH ×3 (06:01→18:31)
[2016-11-26] MEDS: VANCOMYCIN 125 MG/2.5 ML UDL PO SCH ×4 (06:01→21:25)
[2016-11-26] MEDS: oxyCODONE IR 5 MG TAB PO PRN (06:02)
[2016-11-26 06:57] LABS: ANION GAP 5 mEq/L (8-16); CALCIUM 7.7 mg/dL (8.5-10.4); CARBON DIOXIDE 33 mEq/l (22-31); CHLORIDE 100 mEq/L (97-110); CREATININE 0.7 mg/dL (0.6-1.0); GLOMERULAR FILTRATION RATE > 60; GLUCOSE 146 mg/dL (70-100); POTASSIUM 4.4 mEq/L (3.5-5.2); SODIUM 138 mEq/L (134-144)
[2016-11-26] MEDS: ENOXAPARIN 40 MG/0.4 ML SYR SC SCH (08:36)
[2016-11-26] MEDS: ERTAPENEM 1 GM in NS 100 ML IV SCH (08:36)
[2016-11-26] MEDS: METOPROLOL TARTRATE 25 MG TAB PO SCH ×3 (08:37→21:26)
[2016-11-26] MEDS: predniSONE 10 MG TAB PO SCH (08:37)
[2016-11-26] MEDS ORDERED: FUROSEMIDE 40 MG/4 ML VIAL IVP SCH (09:00)
[2016-11-26] MEDS: FLUTICASONE/SALMETER 250/50MCG DISKUS IH SCH ×2 (09:51→20:12)
[2016-11-26] MEDS: MICAFUNGIN NA 100 MG in NS 100 ML IV SCH (09:59)
--- NOTE | 2016-11-26 10:13 | SOAPPROG ---
SOAP Progress Note Assessment/Plan: Assessment: Stable, d/c planning to likely SNF Plan: 11/08/16 12:37 11/09/16 10:10 11/10/16 12:20 11/11/16 11:09 11/12/16 12:57 11/13/16 11:25 11/14/16 13:49 11/15/16 09:45 11/16/16 11:12 11/17/16 14:53 11/18/16 11:21 11/19/16 12:19 11/20/16 10:16 11/22/16 11:22 11/23/16 15:29 11/24/16 16:47 11/25/16 10:28 11/26/16 10:12 Subjective: No new complaints. Objective: Vital Signs Temp Pulse Resp BP Pulse Ox 37.2 C 84 16 109/89 H 92 11/26/16 07:43 11/26/16 09:53 11/26/16 09:53 11/26/16 07:43 11/26/16 09:53 Laboratory Results 11/25/16 06:00 11/26/16 06:15 11/25/16 11/26/16 11/27/16 05:59 05:59 05:59 Intake Total 2404 Output Total 3700 2620 400 Balance -3700 -216 -400 PT 14.6 SEC (12.0-15.0) 11/20/16 05:40 INR 1.15 (0.83-1.16) 11/20/16 05:40 Alert, NAD Abd soft Inc without erythema TIKA dark/purulent ICD10 Worksheet Patient Problems: Problems Problem Status Onset Intraperitoneal abscess Acute Palliative care encounter Acute Small bowel perforation Acute Ulcerative colitis Acute Chronic bronchitis Active Fracture of lower leg Active History of - deep vein thrombosis Active C. difficile diarrhea Acute 11/01/16 Diverticulitis Acute Femur fracture Acute
[2016-11-26 14:03] LABS: VARICELLA ZOSTER NEGATIVE (Negative)
--- NOTE | 2016-11-26 15:51 | HOSPPROG ---
Hospitalist Progress Note Assessment/Plan: Assessment: 76 yo F w UC, recurrent cdiff, chronic steroids, presenting with bowel perf and abscess s/p drainage and repair with persistent leak post- operatively Plan: # bowel perforation/peritonitis: s/p repair and washout, now with ongoing leak, continues to drain via TIKA -Slow to heal given chronic steroids, recurrent c diff -Attempting conservative mgmt with NPO / bowel rest, TPN, abx -continue ertapenem/micafungin for polymicrobial intra abdominal abscess per ID -per surgical team, she will require q week surgical physician assessments ( which can be conducted in clinic, from [facility]), anticipates 6-8 weeks of slow healing time -d/w ID, they recommend outpatient routine imaging studies of abdomen to monitor for recurrent abscess formation, cont to monitor WBC # recurrent c diff: continue PO vanc while on broad spectrum abx # h/o UC: on chronic steroids, weaning off of prednisone given above, at baseline was on 30mg and now down to 10, will need to watch for s/s of AI on decreasing doses of pred. -decrease prednisone to 5 mg daily # acute diastolic CHF exacerbation: 2/2 volume resuscitation, w/ hypoxia, CXR w / mod R effusion, echo w/ LVH. wt 63 kg on admit, up to 85 kg, now down to 67 kg. -decrease lasix to 40 once daily, likely change to oral tomorrow and slow down after a few days of aggressive diuresis -monitor I&O's, daily weights -follow BMP # oral ulcers: HSV swab pending # ileus/sbo: noted on imaging, continued NPO, TPN # anemia: has been stable, received 1 unit in ronnell op period # atrial fibrillation and atrial flutter: currently in afib rate controlled on tele -cont metop 12.5 tid -pplx dose lovenox -holding xarelto given recent surg, d/w Dr. Diaz prior to restarting # depressed mood: patient endorsing depression, has been episodic but recurrent in the setting of severe illness -appreciate consult by Linda Lopez -offered patient SSRI, she has declined -patient would like to continue counseling w/ SAV # ppx: high risk, h/o DVT, on lovenox 40 # diet: on TPN # code status: DNR, goals of care an ongoing conversation, palliative involved # dispo: cont inpt, remains highly complex Subjective: Pt doing okay today, no new complaints. No fevers. Objective: Vital Signs Temp Pulse Resp BP Pulse Ox 36.7 C 91 20 100/60 94 11/26/16 12:00 11/26/16 12:00 11/26/16 12:00 11/26/16 12:00 11/26/16 12:00 Laboratory Results 11/25/16 06:00 11/26/16 06:15 11/25/16 11/26/16 11/27/16 05:59 05:59 05:59 Intake Total 2404 Output Total 3700 2620 1200 Balance -3700 -216 -1200 PT 14.6 SEC (12.0-15.0) 11/20/16 05:40 INR 1.15 (0.83-1.16) 11/20/16 05:40 - Physical Exam Constitutional: no apparent distress Eyes: PERRL Ears, Nose, Mouth, Throat: moist mucous membranes Cardiovascular: regular rate and rhythym Respiratory: no respiratory distress, clear to auscultation Gastrointestinal: normoactive bowel sounds, other (midline incision with increasing erythema along staple lines, no purulence. TIKA drain with decreased greenish feculent output) Skin: warm Musculoskeletal: full muscle strength Neurologic: AAOx3 Psychiatric: interacting appropriately ICD10 Worksheet Patient Problems: Problems Problem Status Onset Intraperitoneal abscess Acute Palliative care encounter Acute Small bowel perforation Acute Ulcerative colitis Acute Chronic bronchitis Active Fracture of lower leg Active History of - deep vein thrombosis Active C. difficile diarrhea Acute 11/01/16 Diverticulitis Acute Femur fracture Acute
[2016-11-26] MEDS: MENTHOL/CAMPHOR 222 ML BOTTLE TP SCH (17:17)
[2016-11-26] MEDS: TPN W/ FAMOTIDINE 1 EA BAG IV SCH (21:25)
[2016-11-27] MEDS: INSULIN REGULAR, HUMAN 100 UNIT/1 ML VIAL STANDARD SC SCH ×4 (00:57→18:09)
[2016-11-27] MEDS: VANCOMYCIN 125 MG/2.5 ML UDL PO SCH ×4 (06:24→19:51)
[2016-11-27] MEDS: oxyCODONE IR 5 MG TAB PO PRN ×2 (06:24→12:33)
[2016-11-27 06:36] LABS: % IMMATURE GRANULYOCYTES 1.2 % (0.0-1.1); ABSOLUTE IMMATURE GRANULOCYTES 0.06 10^3/uL (0.00-0.10); ABSOLUTE NRBC COUNT 0.02 10^3/uL (0-0.01); ADD DIFF? NO; ADD MORPH? YES; ADD SCAN? YES; FRAGMENT RBC FLAG 40 (0-99); HEMATOCRIT 25.5 % (38.0-47.0); HEMOGLOBIN 7.5 g/dL (12.6-16.3); LEFT SHIFT FLG 10 (0-99); LIPEMIA HEMOLYSIS FLAG 70 (0-99); MEAN CELL HEMOGLOBIN 25.4 pg (27.9-34.1); MEAN CELL HEMOGLOBIN CONCENTR. 29.4 g/dL (32.4-36.7); MEAN CELL VOLUME 86.4 fL (81.5-99.8); MEAN PLATELET VOLUME 10.7 fL (8.7-11.7); NRBC-AUTO% 0.4 % (0.0-0.2); PLATELET CLUMPS FLAG 0 (0-99); PLATELET COUNT 268 10^3/uL (150-400); RED BLOOD CELL COUNT 2.95 10^6/uL (4.18-5.33)
[2016-11-27 06:39] LABS: ATYPICAL LYMPHOCYTE FLAG 120 (0-99); RED CELL DISTRIBUTION WIDTH 21.6 % (11.5-15.2)
[2016-11-27 06:41] LABS: APTT 32.4 SEC (23.0-38.0); INR 1.15 (0.83-1.16); PROTIME(PATIENT) 14.6 SEC (12.0-15.0)
[2016-11-27 07:30] LABS: SCAN NEGATIVE
[2016-11-27 07:33] LABS: MICROCYTES 1+; PLATELET ESTIMATE ADEQUATE (ADEQ)
[2016-11-27 07:34] LABS: HYPOCHROMIA 2+; POLYCHROMASIA 1+
[2016-11-27 07:43] LABS: ALANINE AMINOTRANSFERASE 23 IU/L (9-52); ALBUMIN 2.1 g/dL (3.5-5.0); ALKALINE PHOSPHATASE 81 IU/L (38-126); ANION GAP 5 mEq/L (8-16); ASPARTATE AMINOTRANSFERASE 22 IU/L (14-46); BILIRUBIN,TOTAL 0.3 mg/dL (0.1-1.4); CALCIUM 7.6 mg/dL (8.5-10.4); CARBON DIOXIDE 31 mEq/l (22-31); CHLORIDE 104 mEq/L (97-110); CREATININE 0.7 mg/dL (0.6-1.0); GLOMERULAR FILTRATION RATE > 60; GLUCOSE 149 mg/dL (70-100); MAGNESIUM 2.4 mg/dL (1.6-2.3); POTASSIUM 3.9 mEq/L (3.5-5.2); SODIUM 140 mEq/L (134-144); TOTAL PROTEIN 5.3 g/dL (6.3-8.2); TRIGLYCERIDE 194 mg/dL (35-135)
[2016-11-27] MEDS: FLUTICASONE/SALMETER 250/50MCG DISKUS IH SCH ×2 (09:18→21:12)
[2016-11-27] MEDS: MICAFUNGIN NA 100 MG in NS 100 ML IV SCH (09:52)
[2016-11-27] MEDS: predniSONE 10 MG TAB PO SCH (09:52)
[2016-11-27] MEDS: ERTAPENEM 1 GM in NS 100 ML IV SCH (09:52)
[2016-11-27] MEDS: ENOXAPARIN 40 MG/0.4 ML SYR SC SCH (09:52)
[2016-11-27] MEDS: METOPROLOL TARTRATE 25 MG TAB PO SCH ×3 (09:58→21:32)
--- NOTE | 2016-11-27 10:04 | PCMIDPN ---
Assessment/Plan: Assessment: peritonitis after sigmoid perforation in patient with underlying ulcerative colitis. 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 Plan is to continue antibiotic treatment and have bowel rest with TPN. She continues on ertapenem, micafungin and now QID PO vanco. Clinically improving but slowly. Plan: 1) Continue current antibiotic regimen. 2) Follow clinical course. 3) Follow drain output. If this continues to show scot feculent material, then washout and sigmoidectomy may need to be reconsidered unless patient opts for comfort measures. 11/27/16 22:32 Subjective: Patient is resting comfortably in her hospital bed. She does not have any particular complaint but is disappointed with the lack of clear progress. No fevers. Objective: ertapenem # 19 Micafungin # 13 po Vancomycin #8 Vital Signs Temp Pulse Resp BP Pulse Ox 36.8 C 84 18 109/71 94 11/27/16 09:54 11/27/16 09:54 11/27/16 09:54 11/27/16 09:54 11/27/16 09:54 Laboratory Results 11/27/16 06:10 11/27/16 06:10 11/26/16 11/27/16 11/28/16 05:59 05:59 05:59 Intake Total 2404 1095 Output Total 2620 2260 Balance -216 -1165 - Physical Exam General Appearance: WD/WN, alert, no apparent distress, non-toxic Respiratory: lungs clear, normal breath sounds, No respiratory distress Cardiac/Chest: regular rate, rhythm, No tachycardia Skin: normal color, warm/dry, No rash Neuro/Psych: alert, normal mood/affect, oriented x 3 ICD10 Worksheet Patient Problems: Problems Problem Status Onset Intraperitoneal abscess Acute Palliative care encounter Acute Small bowel perforation Acute Ulcerative colitis Acute Chronic bronchitis Active Fracture of lower leg Active History of - deep vein thrombosis Active C. difficile diarrhea Acute 11/01/16 Diverticulitis Acute Femur fracture Acute
--- NOTE | 2016-11-27 10:05 | SOAPPROG ---
SOAP Progress Note Assessment/Plan: Assessment: Stable, poss d/c to [facility]. D/w patient and at length, questions answered. Plan: Subjective: No change, continued cramping. No N/V. Objective: Vital Signs Temp Pulse Resp BP Pulse Ox 36.8 C 84 18 109/71 94 11/27/16 09:54 11/27/16 09:54 11/27/16 09:54 11/27/16 09:54 11/27/16 09:54 Laboratory Results 11/27/16 06:10 11/27/16 06:10 11/26/16 11/27/16 11/28/16 05:59 05:59 05:59 Intake Total 2404 1095 Output Total 2620 2260 Balance -216 -1165 PT 14.6 SEC (12.0-15.0) 11/27/16 06:10 INR 1.15 (0.83-1.16) 11/27/16 06:10 Alert, NAD Abd soft, NTTP Inc without erythema. TIKA purulent ICD10 Worksheet Patient Problems: Problems Problem Status Onset Intraperitoneal abscess Acute Palliative care encounter Acute Small bowel perforation Acute Ulcerative colitis Acute Chronic bronchitis Active Fracture of lower leg Active History of - deep vein thrombosis Active C. difficile diarrhea Acute 11/01/16 Diverticulitis Acute Femur fracture Acute
--- NOTE | 2016-11-27 15:01 | PDPCPN ---
Palliative Care Progress Note Assessment/Plan: HPI: Yelitza Ansari is a 76 yo female with pMH ulcerative colitis, recurrent c diff, a fib, DVT admitted to the hospital with increasing abdominal pain and nausea/ distention. Found to have bowel perf with abscess. Recently started on antibiotics for recurrent c diff as outpt. s/p drainage and repair of leak with complications of recurrent leak post op requiring bowel rest and TPN. With ongoing pain and nausea. Patient is not wanting to continue with aggressive medical interventions. Palliative care consulted for complex medical decision making. Yelitza seen this morning. She is feeling better today with controlled abdominal pain and no nausea. The pain is on occasion but controlled with oral oxycodone. It is cramping at times. Nausea is mostly controlled. She states she worries that her outcome will be the end of her life and she doesn't want to " in rehab". She clarified that she fears declining while in rehab and that she might be at the end of her lfie and doesn't want to spend it in rehab. We discussed options that always include comfort but for now she feels she wants to continue medical treatments and see how things go but worries about having a poor quality of life until the end. Assessment: Physical: - Pain: abdominal pain - can try scop patch for cramping pain - on oxy IR and dilaudid PRN - Nausea: on occasion - if continues might try scop patch to help - zofran PRN - constipation - at risk with opiates - monitor and when able start bowel regimen Emotional/psychological: feeling hopeless and overwhelmed. Linda Lopez following Advanced Care Planning: Is patient decisional?: Yes Code Status: DNR POA: is MDPOA Plan: Will follow for support. Subjective: I'm ok today Objective: Vital Signs Temp Pulse Resp BP Pulse Ox 36.8 C 87 17 119/71 95 11/27/16 11:53 11/27/16 11:53 11/27/16 11:53 11/27/16 11:53 11/27/16 11:53 Laboratory Results 11/27/16 06:10 11/27/16 06:10 11/26/16 11/27/16 11/28/16 05:59 05:59 05:59 Intake Total 2404 1095 442 Output Total 6770 2260 375 Balance -216 -1165 67 PT 14.6 SEC (12.0-15.0) 11/27/16 06:10 INR 1.15 (0.83-1.16) 11/27/16 06:10 Physical Exam - Physical Exam General Appearance: alert, no apparent distress Respiratory: No respiratory distress, No accessory muscle use Skin: normal color, warm/dry Extremities: pedal edema Neuro/Psych: alert, oriented x 3 ICD10 Worksheet Patient Problems: Problems Problem Status Onset Intraperitoneal abscess Acute Palliative care encounter Acute Small bowel perforation Acute Ulcerative colitis Acute Chronic bronchitis Active Fracture of lower leg Active History of - deep vein thrombosis Active C. difficile diarrhea Acute 11/01/16 Diverticulitis Acute Femur fracture Acute - ICD10 Problem Qualifiers (1) Palliative care encounter
--- NOTE | 2016-11-27 15:24 | HOSPPROG ---
Hospitalist Progress Note Assessment/Plan: Assessment: 76 yo F w UC, recurrent cdiff, chronic steroids, presenting with bowel perf and abscess s/p drainage and repair with persistent leak post- operatively Plan: # bowel perforation/peritonitis: s/p repair and washout, now with ongoing leak, continues to drain via TERESA -Slow to heal given chronic steroids, recurrent c diff -Attempting conservative mgmt with NPO / bowel rest, TPN, abx -continue ertapenem/micafungin for polymicrobial intra abdominal abscess per ID -per surgical team, she will require q week surgical physician assessments ( which can be conducted in clinic, from [facility]), anticipates 6-8 weeks of slow healing time -d/w ID, they recommend outpatient routine imaging studies of abdomen to monitor for recurrent abscess formation, cont to monitor WBC # recurrent c diff: continue PO vanc while on broad spectrum abx # h/o UC: on chronic steroids, weaning off of prednisone given above, at baseline was on 30mg and now down to 10, will need to watch for s/s of AI on decreasing doses of pred. -decrease prednisone to 5 mg daily # acute diastolic CHF exacerbation: 2/2 volume resuscitation, w/ hypoxia, CXR w / mod R effusion, echo w/ LVH. wt 63 kg on admit, up to 85 kg, now down to 66 kg. -lasix held today given rapid diuresis recently, change to oral lasix tomorrow -monitor I&O's, daily weights -follow BMP # oral ulcers: HSV swab pending # ileus/sbo: noted on imaging, continued NPO, TPN # anemia: has been stable, received 1 unit in [place] op period # atrial fibrillation and atrial flutter: currently in afib rate controlled on tele -cont metop 12.5 tid -pplx dose lovenox -holding xarelto given recent surg, d/w Dr. Diaz prior to restarting # depressed mood: patient endorsing depression, has been episodic but recurrent in the setting of severe illness -appreciate consult by Linda Lopez -start low dose celexa -patient would like to continue counseling w/ SAV # ppx: high risk, h/o DVT, on lovenox 40 # diet: on TPN # code status: DNR, goals of care an ongoing conversation, palliative involved # dispo: cont inpt, remains highly complex Subjective: Pt feels okay today. No abdominal pain or N/V/D. No fevers. Feeling closer to ready to go to SNF Objective: Vital Signs Temp Pulse Resp BP Pulse Ox 36.8 C 87 17 119/71 95 11/27/16 11:53 11/27/16 11:53 11/27/16 11:53 11/27/16 11:53 11/27/16 11:53 Laboratory Results 11/27/16 06:10 11/27/16 06:10 11/26/16 11/27/16 11/28/16 05:59 05:59 05:59 Intake Total 2404 1095 442 Output Total 2620 2260 375 Balance -216 -1165 67 PT 14.6 SEC (12.0-15.0) 11/27/16 06:10 INR 1.15 (0.83-1.16) 11/27/16 06:10 - Physical Exam Constitutional: no apparent distress Eyes: PERRL Ears, Nose, Mouth, Throat: moist mucous membranes Cardiovascular: regular rate and rhythym Respiratory: no respiratory distress, clear to auscultation Gastrointestinal: normoactive bowel sounds, other (soft, ndnt, incision c/d/i, torres removed, decreased teresa drain output) Skin: warm Neurologic: AAOx3 Psychiatric: interacting appropriately ICD10 Worksheet Patient Problems: Problems Problem Status Onset Intraperitoneal abscess Acute Palliative care encounter Acute Small bowel perforation Acute Ulcerative colitis Acute Chronic bronchitis Active Fracture of lower leg Active History of - deep vein thrombosis Active C. difficile diarrhea Acute 11/01/16 Diverticulitis Acute Femur fracture Acute
[2016-11-27] MEDS: CITALOPRAM 20 MG TAB PO SCH (17:20)
[2016-11-27] MEDS: MENTHOL/CAMPHOR 222 ML BOTTLE TP SCH (17:21)
[2016-11-27] MEDS: TPN W/ FAMOTIDINE 1 EA BAG IV SCH (21:33)
[2016-11-28] MEDS: INSULIN REGULAR, HUMAN 100 UNIT/1 ML VIAL STANDARD SC SCH ×4 (01:29→18:46)
[2016-11-28] MEDS: VANCOMYCIN 125 MG/2.5 ML UDL PO SCH ×4 (06:04→21:03)
[2016-11-28 07:05] LABS: ANION GAP 8 mEq/L (8-16); CALCIUM 7.8 mg/dL (8.5-10.4); CARBON DIOXIDE 28 mEq/l (22-31); CHLORIDE 108 mEq/L (97-110); CREATININE 0.6 mg/dL (0.6-1.0); GLOMERULAR FILTRATION RATE > 60; GLUCOSE 144 mg/dL (70-100); POTASSIUM 4.4 mEq/L (3.5-5.2); SODIUM 144 mEq/L (134-144)
[2016-11-28] MEDS: ONDANSETRON 4 MG/2 ML VIAL IVP PRN ×3 (10:05→21:03)
[2016-11-28] MEDS: ERTAPENEM 1 GM in NS 100 ML IV SCH (10:11)
[2016-11-28] MEDS: ENOXAPARIN 40 MG/0.4 ML SYR SC SCH (10:16)
[2016-11-28] MEDS: FUROSEMIDE 40 MG TAB PO SCH (10:17)
[2016-11-28] MEDS: CITALOPRAM 20 MG TAB PO SCH (10:17)
[2016-11-28] MEDS: predniSONE 10 MG TAB PO SCH (10:18)
[2016-11-28] MEDS: METOPROLOL TARTRATE 25 MG TAB PO SCH ×3 (10:18→21:03)
[2016-11-28] MEDS: FLUTICASONE/SALMETER 250/50MCG DISKUS IH SCH ×2 (10:19→21:03)
[2016-11-28] MEDS: MICAFUNGIN NA 100 MG in NS 100 ML IV SCH ×2 (10:19→10:52)
--- NOTE | 2016-11-28 10:52 | PCMIDPN ---
Assessment/Plan: Assessment/Plan: 1. Sigmoid perforation with Peritonitis/abscess: - s/p wash out on 11/07/16. - Cx with E.coli + Kleb. C. glabrata and albicans - Currently on invanz + fluconazole -wbc improved. afebrile. -if continues to have moderate abd pain, ongoing feculent material from drain- may need f/u imaging sooner to reevaluate. -continue with therapy. -updated patient, 2. Hx c. diff;- - on oral vanco- q6 Meds invanz fluconazole oral vanco Subjective: Afebrile. Pt states she vomited last night after recieving oral vanco. Tolerated dose this AM but still with nausea. had fecal incontinence today as well. continues to have left abd pain. Objective: Vital Signs Temp Pulse Resp BP Pulse Ox 37.1 C 91 20 121/64 H 94 11/28/16 07:38 11/28/16 07:38 11/28/16 07:38 11/28/16 07:38 11/28/16 07:38 Laboratory Results 11/27/16 06:10 11/28/16 06:15 11/27/16 11/28/16 11/29/16 05:59 05:59 05:59 Intake Total 1095 1317 Output Total 2260 1430 100 Balance -1165 -113 -100 - Physical Exam General Appearance: alert Respiratory: lungs clear Cardiac/Chest: irregularly irregular Abdomen: normal bowel sounds, soft, distended, other (tender left abd) Skin: No erythema ICD10 Worksheet Patient Problems: Problems Problem Status Onset Intraperitoneal abscess Acute Palliative care encounter Acute Small bowel perforation Acute Ulcerative colitis Acute Chronic bronchitis Active Fracture of lower leg Active History of - deep vein thrombosis Active C. difficile diarrhea Acute 11/01/16 Diverticulitis Acute Femur fracture Acute
[2016-11-28] MEDS: MENTHOL/CAMPHOR 222 ML BOTTLE TP SCH (11:07)
[2016-11-28] MEDS: oxyCODONE IR 5 MG TAB PO PRN (11:15)
--- NOTE | 2016-11-28 14:00 | HOSPPROG ---
Hospitalist Progress Note Assessment/Plan: Assessment: 76 yo F w UC, recurrent cdiff, chronic steroids, presenting with bowel perf and abscess s/p drainage and repair with persistent leak post- operatively Plan: # bowel perforation/peritonitis: s/p repair and washout, now with ongoing leak, continues to drain via TERESA -Slow to heal given chronic steroids, recurrent c diff -Attempting conservative mgmt with NPO / bowel rest, TPN, abx -continue ertapenem/micafungin for polymicrobial intra abdominal abscess per ID -per surgical team, she will require q week surgical physician assessments ( which can be conducted in clinic, from [facility]), anticipates 6-8 weeks of slow healing time -d/w ID, they recommend outpatient routine imaging studies of abdomen to monitor for recurrent abscess formation, cont to monitor WBC, may need rpt CT prior to dc if abdominal pain / diarrhea persist # recurrent c diff: continue PO vanc while on broad spectrum abx # h/o UC: on chronic steroids, weaning off of prednisone given above, at baseline was on 30mg and now down to 5, will need to watch for s/s of AI or worsening UC on decreasing doses of pred. -down to 5 mg prednisone daily, now with increased diarrhea and crampy abdominal pain, monitor # acute diastolic CHF exacerbation: 2/2 volume resuscitation, w/ hypoxia, CXR w / mod R effusion, echo w/ LVH. wt 63 kg on admit, up to 85 kg, now down to 65 kg. -change to po lasix, may just need 1-2 more doses -monitor I&O's, daily weights -follow BMP # oral ulcers: HSV neg # anemia: has been stable, received 1 unit in [place] op period # atrial fibrillation and atrial flutter: currently in afib rate controlled on tele -cont metop 12.5 tid -pplx dose lovenox -holding xarelto given recent surg and tenuous status with ongoing bowel leak, d /w Dr. Diaz prior to restarting # depressed mood: patient endorsing depression, has been episodic but recurrent in the setting of severe illness -appreciate consult by Linda Lopez -start low dose celexa -patient would like to continue counseling w/ SAV # ppx: high risk, h/o DVT, on lovenox 40 # diet: on TPN # code status: DNR, goals of care an ongoing conversation, palliative involved # dispo: cont inpt, remains highly complex Subjective: Pt reports a rough night with multiple episodes of diarrhea and abdominal cramping. No vomiting. No fevers. No blood in stool. Objective: Vital Signs Temp Pulse Resp BP Pulse Ox 37.3 C 86 19 124/77 H 94 11/28/16 10:46 11/28/16 10:46 11/28/16 10:46 11/28/16 10:46 11/28/16 10:46 Laboratory Results 11/27/16 06:10 11/28/16 06:15 11/27/16 11/28/16 11/29/16 05:59 05:59 05:59 Intake Total 1095 1317 Output Total 2260 1430 400 Balance -1165 -113 -400 PT 14.6 SEC (12.0-15.0) 11/27/16 06:10 INR 1.15 (0.83-1.16) 11/27/16 06:10 - Physical Exam Constitutional: no apparent distress Eyes: PERRL Ears, Nose, Mouth, Throat: moist mucous membranes Cardiovascular: regular rate and rhythym Respiratory: no respiratory distress, clear to auscultation Gastrointestinal: normoactive bowel sounds, other (soft, mild distention, incision c/d/i, no purulence, +mild tenderness without r/r/g, ongoing feculent drainage into teresa) Skin: warm Musculoskeletal: other (1+ b/l LE edema, much improved) Neurologic: AAOx3 Psychiatric: interacting appropriately, depressed ICD10 Worksheet Patient Problems: Problems Problem Status Onset Intraperitoneal abscess Acute Palliative care encounter Acute Small bowel perforation Acute Ulcerative colitis Acute Chronic bronchitis Active Fracture of lower leg Active History of - deep vein thrombosis Active C. difficile diarrhea Acute 11/01/16 Diverticulitis Acute Femur fracture Acute
--- NOTE | 2016-11-28 14:02 | SOAPPROG ---
SOAP Progress Note Assessment/Plan: Assessment: Stable, poss d/c to [facility]. D/w patient and at length, questions answered. Plan: Subjective: Patient with some N after vanco dose. Some cramping, unchanged. Objective: Vital Signs Temp Pulse Resp BP Pulse Ox 37.3 C 86 19 124/77 H 94 11/28/16 10:46 11/28/16 10:46 11/28/16 10:46 11/28/16 10:46 11/28/16 10:46 Laboratory Results 11/27/16 06:10 11/28/16 06:15 11/27/16 11/28/16 11/29/16 05:59 05:59 05:59 Intake Total 1095 1317 Output Total 2260 1430 400 Balance -1165 -113 -400 PT 14.6 SEC (12.0-15.0) 11/27/16 06:10 INR 1.15 (0.83-1.16) 11/27/16 06:10 Alert, NAD Abd soft, NTTP TIKA bilious inc C/D/I ICD10 Worksheet Patient Problems: Problems Problem Status Onset Intraperitoneal abscess Acute Palliative care encounter Acute Small bowel perforation Acute Ulcerative colitis Acute Chronic bronchitis Active Fracture of lower leg Active History of - deep vein thrombosis Active C. difficile diarrhea Acute 11/01/16 Diverticulitis Acute Femur fracture Acute
[2016-11-28 18:57] LABS: HEMATOCRIT 29.2 % (38.0-47.0); HEMOGLOBIN 8.7 g/dL (12.6-16.3)
[2016-11-28] MEDS: TPN W/ FAMOTIDINE 1 EA BAG IV SCH (21:02)
[2016-11-29] MEDS: INSULIN REGULAR, HUMAN 100 UNIT/1 ML VIAL STANDARD SC SCH ×4 (00:19→18:34)
[2016-11-29] MEDS: VANCOMYCIN 125 MG/2.5 ML UDL PO SCH (06:33)
[2016-11-29] MEDS: ONDANSETRON 4 MG/2 ML VIAL IVP PRN (06:44)
--- NOTE | 2016-11-29 10:02 | PCMIDPN ---
Assessment/Plan: # Sigmoid perforation with peritonitis/abscess s/p repair and washout in patient with underlying diverticulitis and inflammatory bowel disease. Initial repair surgically with renewed leak at the sigmoid colon. Currently managing with NPO/TPN/TIKA drain. OR cx show Klebsiella, E Coli and c. glabrata. --repeat CT today to see if still leak --change ertapenem to ceftriaxone/flagyl --continue micafungin for coverage of c.glabrata # Cdiff: PO vancomycin causing patient to gag, will try switching to IV metronidazole. # Diarrhea yesterday: multifactorial meds ertapenem 1gm IV daily, #21 micafungin 100mg IV daily, #15 vancomycin 125mg PO QID, #05/05 microbiology 11/07 peritoneal cx : Klebsiella, S-pending; E coli Rowe-S, c.glabrata R to fluconazole Subjective: patient feeling better today, main c/o is intolerance to PO vancomycin, causing gagging. requesting Dificid daughter and at bedside Objective: Vital Signs Temp Pulse Resp BP Pulse Ox 36.7 C 92 13 121/66 H 96 11/29/16 08:00 11/29/16 08:00 11/29/16 08:00 11/29/16 08:00 11/29/16 08:00 Laboratory Results 11/28/16 17:30 11/28/16 06:15 11/28/16 11/29/16 11/30/16 05:59 05:59 05:59 Intake Total 1317 900 250 Output Total 1430 2115 150 Balance -113 -1215 100 - Physical Exam General Appearance: alert, no apparent distress, obese EENT: pale conjunctiva Respiratory: lungs clear, No accessory muscle use Neck: supple Cardiac/Chest: irregularly irregular Extremities: pedal edema (much improved) Abdomen: normal bowel sounds, non-tender, soft, other (R TIKA drain with minimal fluid, appears purulent/green), No distended Pelvic Exam: No grande Skin: pallor, No rash Neuro/Psych: alert, oriented x 3, depressed affect - Line/s RUE PICC Lines: No drainage, No erythema - Time Spent With Patient Time Spent with Patient: greater than 35 minutes (discussed re-consideration of surgery based on CT findings.) Time Spent with Patient: Greater than 35 minutes spent on this patients care, greater than 50% of time spent counseling, educating, and coordinating care regarding the above mentioned plan. ICD10 Worksheet Patient Problems: Problems Problem Status Onset Intraperitoneal abscess Acute Palliative care encounter Acute Small bowel perforation Acute Ulcerative colitis Acute Chronic bronchitis Active Fracture of lower leg Active History of - deep vein thrombosis Active C. difficile diarrhea Acute 11/01/16 Diverticulitis Acute Femur fracture Acute
[2016-11-29] MEDS: FLUTICASONE/SALMETER 250/50MCG DISKUS IH SCH ×2 (10:03→21:50)
[2016-11-29] MEDS: FUROSEMIDE 40 MG TAB PO SCH (10:19)
[2016-11-29] MEDS: CITALOPRAM 20 MG TAB PO SCH (10:19)
[2016-11-29] MEDS: METOPROLOL TARTRATE 25 MG TAB PO SCH ×3 (10:20→21:36)
[2016-11-29] MEDS: ENOXAPARIN 40 MG/0.4 ML SYR SC SCH (10:21)
[2016-11-29] MEDS: MENTHOL/CAMPHOR 222 ML BOTTLE TP SCH (10:35)
[2016-11-29] MEDS: predniSONE 10 MG TAB PO SCH (10:36)
[2016-11-29] MEDS: ERTAPENEM 1 GM in NS 100 ML IV SCH (10:53)
--- NOTE | 2016-11-29 10:54 | SOAPPROG ---
SOAP Progress Note Assessment/Plan: Assessment: Stable, cont TIKA/TPN/abx. Plan: 11/29/16 10:53 Subjective: Pain improved, still some nausea with po vanco Objective: Vital Signs Temp Pulse Resp BP Pulse Ox 36.7 C 92 13 121/66 H 96 11/29/16 08:00 11/29/16 08:00 11/29/16 08:00 11/29/16 08:00 11/29/16 08:00 Laboratory Results 11/28/16 17:30 11/28/16 06:15 11/28/16 11/29/16 11/30/16 05:59 05:59 05:59 Intake Total 1317 900 250 Output Total 1430 2115 150 Balance -113 -1215 100 PT 14.6 SEC (12.0-15.0) 11/27/16 06:10 INR 1.15 (0.83-1.16) 11/27/16 06:10 Alert, NAD Abd soft, NTTP Inc without erythema TIKA bilious ICD10 Worksheet Patient Problems: Problems Problem Status Onset Intraperitoneal abscess Acute Palliative care encounter Acute Small bowel perforation Acute Ulcerative colitis Acute Chronic bronchitis Active Fracture of lower leg Active History of - deep vein thrombosis Active C. difficile diarrhea Acute 11/01/16 Diverticulitis Acute Femur fracture Acute
[2016-11-29] MEDS ORDERED: IOPAMIDOL (ISOVUE-300) 100 ML BTL IV ONE (12:27)
--- NOTE | 2016-11-29 20:35 | HOSPPROG ---
Hospitalist Progress Note Assessment/Plan: 76 yo F with h/o ulcerative colitis, diverticulitis, recurrent c diff, chronic steroids, presented with bowel perf and abscess s/p drainage and repair on 2016, developed leak with feculent drainage in TIKA. HD #22. Surgery is primary and dispo is per surgery. We are consulting. # bowel perforation/peritonitis: s/p repair and washout, with ongoing leak, continues to drain via TIKA. Pt does not want another surgery, but family pushing her to be more aggressive. -Attempting conservative mgmt with NPO / bowel rest, TPN, abx -Slow to heal given chronic steroids, recurrent c diff -continue ertapenem/micafungin per ID -repeat CT today, will require ongoing surveillance # recurrent c diff: continue PO vanc while on broad spectrum abx # h/o UC: on chronic steroids, weaning off prednisone given above, at baseline was on 30mg and now down to 5, will need to watch for s/s of AI or worsening UC on decreasing doses of pred. discussed with Dr. Armas, primary GI. # acute diastolic CHF exacerbation: 2/2 volume resuscitation, w/ hypoxia, effusion, LE edema. wt 63 kg on admit, up to 85 kg, now down to 65 kg. -change to po lasix, may just need 1-2 more doses -monitor I&O's, daily weights -follow BMP # oral ulcers: HSV neg # anemia: has been stable, received 1 unit in [place] op period # atrial fibrillation / flutter: currently in afib rate controlled, on tele -cont metop 12.5 tid -holding xarelto given recent surg and tenuous status with ongoing bowel leak. d/w mervat, who is ok with resuming AC. -cont pplx lovenox for now # depressed mood: patient endorsing depression, has been episodic but recurrent in the setting of severe illness -appreciate consult by Linda Lopez, who continues to follow -start low dose celexa # ppx: high risk, h/o DVT, on lovenox 40 # diet: on TPN # code status: DNR, goals of care an ongoing conversation, palliative involved # dispo: cont inpt, remains highly complex Subjective: Pt resting comfortably. No pain today. Diarrhea decreased. She is not tolerating the oral contrast for CT. No fevers. Remains NPO, on TPN. Objective: Vital Signs Temp Pulse Resp BP Pulse Ox 36.7 C 88 18 126/71 H 95 11/29/16 19:50 11/29/16 19:50 11/29/16 19:50 11/29/16 19:50 11/29/16 19:50 Laboratory Results 11/28/16 17:30 11/28/16 06:15 11/28/16 11/29/16 11/30/16 05:59 05:59 05:59 Intake Total 1317 900 250 Output Total 1430 2115 2300 Balance -113 -1215 -0 PT 14.6 SEC (12.0-15.0) 11/27/16 06:10 INR 1.15 (0.83-1.16) 11/27/16 06:10 - Physical Exam Constitutional: no apparent distress Eyes: PERRL Ears, Nose, Mouth, Throat: moist mucous membranes Cardiovascular: irregularly irregular Respiratory: no respiratory distress, reduced air movement Gastrointestinal: normoactive bowel sounds, other (soft, nd, minimal TTP, no r/r /g, incision c/d/i, +feculent drainage in TIKA) Skin: warm Musculoskeletal: other (1+ bl LE pitting edema, much improvement) Neurologic: AAOx3 Psychiatric: interacting appropriately, depressed ICD10 Worksheet Patient Problems: Problems Problem Status Onset Intraperitoneal abscess Acute Palliative care encounter Acute Small bowel perforation Acute Ulcerative colitis Acute Chronic bronchitis Active Fracture of lower leg Active History of - deep vein thrombosis Active C. difficile diarrhea Acute 11/01/16 Diverticulitis Acute Femur fracture Acute
[2016-11-29] MEDS: TPN W/ FAMOTIDINE 1 EA BAG IV SCH (21:38)
[2016-11-30] MEDS: INSULIN REGULAR, HUMAN 100 UNIT/1 ML VIAL STANDARD SC SCH ×4 (00:30→17:54)
[2016-11-30 07:30] LABS: ANION GAP 7 mEq/L (8-16); CALCIUM 8.1 mg/dL (8.5-10.4); CARBON DIOXIDE 30 mEq/l (22-31); CHLORIDE 107 mEq/L (97-110); CREATININE 0.7 mg/dL (0.6-1.0); GLOMERULAR FILTRATION RATE > 60; GLUCOSE 143 mg/dL (70-100); POTASSIUM 3.8 mEq/L (3.5-5.2); SODIUM 144 mEq/L (134-144)
[2016-11-30] MEDS: ENOXAPARIN 40 MG/0.4 ML SYR SC SCH (09:20)
[2016-11-30] MEDS: CITALOPRAM 20 MG TAB PO SCH (09:20)
[2016-11-30] MEDS: METOPROLOL TARTRATE 25 MG TAB PO SCH ×3 (09:23→21:53)
[2016-11-30] MEDS: predniSONE 10 MG TAB PO SCH (09:23)
[2016-11-30] MEDS: FUROSEMIDE 40 MG TAB PO SCH (09:24)
[2016-11-30] MEDS: FLUTICASONE/SALMETER 250/50MCG DISKUS IH SCH ×2 (10:00→21:35)
[2016-11-30] MEDS: MICAFUNGIN NA 100 MG in NS 100 ML IV SCH (10:05)
[2016-11-30] MEDS: MENTHOL/CAMPHOR 222 ML BOTTLE TP SCH (10:06)
--- NOTE | 2016-11-30 11:05 | PCMIDPN ---
Assessment/Plan: # Sigmoid perforation with polymicrobial peritonitis/abscess s/p repair and washout in patient with underlying diverticulitis and inflammatory bowel disease , initial repair failed and now with renewed leak at the sigmoid colon. Currently managing with NPO/TPN/TIKA drain. Repeat CT scan shows improvement, antibiotic adjusted yesterday because of intolerance to PO vancomycin. --discuss with surgery, consider continuing NPO/TPN/Abx/Drain another 2 weeks and re-image, probably with rectal contrast # Cdiff: IV metronidazole now. # Diarrhea yesterday: multifactorial meds, peritonitis bacterial coverage #22 ceftriaxone 1gm IV daily #1 Metronidazole 500mg IV q8 #1 micafungin 100mg IV daily, #16 Full Rx Cdiff #06/05 microbiology 11/07 peritoneal cx : Klebsiella, S-pending; E coli Rowe-S, c.glabrata R to fluconazole Subjective: feels tired no further diarrhea no abdominal pain Objective: Vital Signs Temp Pulse Resp BP Pulse Ox 36.9 C 85 24 H 113/72 98 11/30/16 08:00 11/30/16 08:00 11/30/16 08:00 11/30/16 08:00 11/30/16 08:00 Laboratory Results 11/28/16 17:30 11/30/16 06:20 11/29/16 11/30/16 12/01/16 05:59 05:59 05:59 Intake Total 900 1162 Output Total 2115 3600 400 Balance -9085 -1378 -400 General Appearance: alert, no apparent distress, obese EENT: pale conjunctiva Respiratory: lungs clear, No accessory muscle use Neck: supple Cardiac/Chest: irregularly irregular Extremities: 1+ pedal edema Abdomen: normal bowel sounds, non-tender, soft, R TIKA drain with minimal fluid, appears purulent/green, Not distended Pelvic Exam: No grande Skin: pallor, No rash Neuro/Psych: alert, oriented x 3, depressed affect LUE PICC: No drainage, No erythema ICD10 Worksheet Patient Problems: Problems Problem Status Onset Intraperitoneal abscess Acute Palliative care encounter Acute Small bowel perforation Acute Ulcerative colitis Acute Chronic bronchitis Active Fracture of lower leg Active History of - deep vein thrombosis Active C. difficile diarrhea Acute 11/01/16 Diverticulitis Acute Femur fracture Acute
--- NOTE | 2016-11-30 13:28 | SOAPPROG ---
SOAP Progress Note Assessment/Plan: Assessment: Stable, cont TIKA/TPN/abx. Await placement. Plan: 11/29/16 10:53 11/30/16 13:28 Subjective: Pt feels better, no cramping, no N Objective: Vital Signs Temp Pulse Resp BP Pulse Ox 37.1 C 86 16 121/73 H 90 L 11/30/16 12:00 11/30/16 12:00 11/30/16 12:00 11/30/16 12:00 11/30/16 12:00 Laboratory Results 11/28/16 17:30 11/30/16 06:20 11/29/16 11/30/16 12/01/16 05:59 05:59 05:59 Intake Total 900 1162 Output Total 2115 3600 400 Balance -1215 -2438 -400 PT 14.6 SEC (12.0-15.0) 11/27/16 06:10 INR 1.15 (0.83-1.16) 11/27/16 06:10 Alert, NAD Abd soft, [employer] healing well TIKA purulent ICD10 Worksheet Patient Problems: Problems Problem Status Onset Intraperitoneal abscess Acute Palliative care encounter Acute Small bowel perforation Acute Ulcerative colitis Acute Chronic bronchitis Active Fracture of lower leg Active History of - deep vein thrombosis Active C. difficile diarrhea Acute 11/01/16 Diverticulitis Acute Femur fracture Acute
--- NOTE | 2016-11-30 14:57 | HOSPPROG ---
Hospitalist Progress Note Assessment/Plan: 76 yo F new to my care with h/o ulcerative colitis, diverticulitis, recurrent c diff, chronic steroids, presented with bowel perf and abscess s/p drainage and repair on 11/07/2016, developed leak with feculent drainage in TERESA. HD #22. Surgery is primary and dispo is per surgery. We are consulting. # bowel perforation/peritonitis: s/p repair and washout, with ongoing leak, continues to drain via TERESA. Pt does not want another surgery, but family pushing her to be more aggressive. -case discussed with Dr. Horton/Mervat -cont TERESA drain/iv abx/tpn for 2 weeks # recurrent c diff: continue PO vanc while on broad spectrum abx # h/o UC: on chronic steroids, weaning off prednisone given above, at baseline was on 30mg and now down to 5, will need to watch for s/s of AI or worsening UC on decreasing doses of pred. # acute diastolic CHF exacerbation: 2/2 volume resuscitation, w/ hypoxia, effusion, LE edema. wt 63 kg on admit, up to 85 kg, now down to 65 kg. -change to po lasix, may just need 1-2 more doses -monitor I&O's, daily weights -follow BMP # oral ulcers: HSV neg # anemia: has been stable, received 1 unit in [place] op period # atrial fibrillation / flutter: currently in afib rate controlled, on tele -cont metop 12.5 tid -holding xarelto given recent surg and tenuous status with ongoing bowel leak. d/w mervat, who is ok with resuming AC. -cont pplx lovenox for now # depressed mood: patient endorsing depression, has been episodic but recurrent in the setting of severe illness -appreciate consult by Linda Lopez, who continues to follow -continue low dose celexa # ppx: high risk, h/o DVT, on lovenox 40 # diet: on TPN # code status: DNR, goals of care an ongoing conversation, palliative involved # dispo: dc to snf when bed available Subjective: no new complaints. no fever or chills. no abd pain Objective: Vital Signs Temp Pulse Resp BP Pulse Ox 37.1 C 86 16 121/73 H 90 L 11/30/16 12:00 11/30/16 12:00 11/30/16 12:00 11/30/16 12:00 11/30/16 12:00 Laboratory Results 11/28/16 17:30 11/30/16 06:20 11/29/16 11/30/16 12/01/16 05:59 05:59 05:59 Intake Total 900 1162 Output Total 2117 9410 400 Balance -1215 -2438 -400 PT 14.6 SEC (12.0-15.0) 11/27/16 06:10 INR 1.15 (0.83-1.16) 11/27/16 06:10 - Physical Exam Constitutional: no apparent distress, appears nourished, not in pain Cardiovascular: regular rate and rhythym, no murmur, rub, or gallop Respiratory: no respiratory distress, no rales or rhonchi, clear to auscultation Gastrointestinal: normoactive bowel sounds, soft, non-tender abdomen, no palpable masses, distension, other (teresa drain in place) ICD10 Worksheet Patient Problems: Problems Problem Status Onset Small bowel perforation Acute Intraperitoneal abscess Acute Palliative care encounter Acute Ulcerative colitis Acute History of - deep vein thrombosis Active Chronic bronchitis Active Fracture of lower leg Active Diverticulitis Acute Femur fracture Acute C. difficile diarrhea Acute 11/01/16
[2016-11-30] MEDS: TPN W/ FAMOTIDINE 1 EA BAG IV SCH (21:53)
[2016-12-01] MEDS: INSULIN REGULAR, HUMAN 100 UNIT/1 ML VIAL STANDARD SC SCH ×3 (01:32→13:08)
[2016-12-01] MEDS: MICAFUNGIN NA 100 MG in NS 100 ML IV SCH (09:11)
[2016-12-01] MEDS: FUROSEMIDE 40 MG TAB PO SCH (09:12)
[2016-12-01] MEDS: METOPROLOL TARTRATE 25 MG TAB PO SCH (09:12)
[2016-12-01] MEDS: CITALOPRAM 20 MG TAB PO SCH (09:12)
[2016-12-01] MEDS: predniSONE 10 MG TAB PO SCH (09:12)
[2016-12-01] MEDS: ENOXAPARIN 40 MG/0.4 ML SYR SC SCH (09:14)
[2016-12-01] MEDS: ONDANSETRON 4 MG/2 ML VIAL IVP PRN (09:19)
[2016-12-01] MEDS: MENTHOL/CAMPHOR 222 ML BOTTLE TP SCH (09:27)
--- NOTE | 2016-12-01 09:59 | PDIAF ---
- Diagnosis Diagnosis: Abdominal abscess/peritonitis Code Status: Do Not Resuscitate - Medication Management Discharge Medications: Medications to Continue on Transfer [place]-3 Fatty Acids/Fish Oil [Fish Oil 1,000 mg Capsule] 1 each PO DAILY [Last Taken 11/05/16] Cetirizine [ZyrTEC 10 mg (*)] 10 mg PO DAILY 03/09/16 [Last Taken 11/05/16] Cholecalciferol Vit D3 [Vitamin D3 (*)] 2,000 units PO DAILY 03/09/16 [Last Taken 11/05/16] Estradiol [Estrace Vaginal (*)] 1 hardy VAG Q2D 03/09/16 [Last Taken 03/06/16] Lactobacil 2-S.thermo-Bifido 1 [VSL#3 DS PACKET] 1 each PO DAILY@10 03/09/16 [ Last Taken 11/05/16] Mesalamine [Apriso 0.375 gm] 1.5 gm PO DAILY 03/09/16 [Last Taken 11/05/16] Metoprolol Tartrate [Lopressor 25 mg (*)] 12.5 mg PO BID 03/09/16 [Last Taken ] Rivaroxaban [Xarelto] 20 mg PO DAILY18 03/09/16 [Last Taken 11/05/16] Budesonide [Uceris] 9 mg PO DAILY 11/07/16 [Last Taken 11/05/16] Calcium Carbonate/Vitamin D3 [CALCIUM 600 + VIT D TABLET] 1 each PO BID [Last Taken Unknown] Eflornithine HCl [Vaniqa] 1 hardy TP BID 11/07/16 [Last Taken Unknown] Fluticasone Nasal [Flonase Nasal [place] (RX)] 1 sprays NASAL BID 11/07/16 [Last Taken Unknown] Fluticasone/Salmeter 250/50Mcg [Advair 250/50 (*)] 1 puffs IH BID 11/07/16 [ Last Taken 11/05/16] Herbals/Supplements -Info Only 1 ea PO DAILY 11/07/16 [Last Taken Unknown] Reclast 5mg/100 1 each IV Q365D 11/07/16 [Last Taken Unknown] Vancomycin [Vancomycin (*)] 125 mg PO Q6 11/07/16 [Last Taken 11/05/16] predniSONE [predniSONE] 30 mg PO DAILY 11/07/16 [Last Taken 11/05/16] Adalimumab [Humira] 40 mg SQ AD 11/13/16 [Last Taken Unknown] Public Relations Senior Associate Antibiotics: ceftriaxone 1gm IV daily; metronidazole 500mg IV q8h, micafungin 100mg IV D Public Relations Senior Associate Antibiotic Stop Date: 12/13/16 Discharge Medications: Refer to the Discharge Home Medication list for PRN reason. PICC Care - Routine: Yes - Labs/Radiology CBC Date: 12/04/16 ( Sunday weekly) CMP Date: 12/04/16 ( Sunday) Call or Fax Lab and Imaging Results to: [facility] [phone] - Follow Up Care Current Providers and Referrals: Neri Del Toro MD [Primary Care Provider] - As per Instructions Deepa Horton MD [Medical Doctor] - 12/12/16 11:00 am
--- NOTE | 2016-12-01 10:15 | PDIAF ---
- Diagnosis Diagnosis: Abdominal abscess/peritonitis Code Status: Do Not Resuscitate - Medication Management Discharge Medications: Medications to Continue on Transfer [place]-3 Fatty Acids/Fish Oil [Fish Oil 1,000 mg Capsule] 1 each PO DAILY [Last Taken 11/05/16] Cetirizine [ZyrTEC 10 mg (*)] 10 mg PO DAILY 03/09/16 [Last Taken 11/05/16] Cholecalciferol Vit D3 [Vitamin D3 (*)] 2,000 units PO DAILY 03/09/16 [Last Taken 11/05/16] Estradiol [Estrace Vaginal (*)] 1 hardy VAG Q2D 03/09/16 [Last Taken 03/06/16] Lactobacil 2-S.thermo-Bifido 1 [VSL#3 DS PACKET] 1 each PO DAILY@10 03/09/16 [ Last Taken 11/05/16] Mesalamine [Apriso 0.375 gm] 1.5 gm PO DAILY 03/09/16 [Last Taken 11/05/16] Metoprolol Tartrate [Lopressor 25 mg (*)] 12.5 mg PO BID 03/09/16 [Last Taken ] Rivaroxaban [Xarelto] 20 mg PO DAILY18 03/09/16 [Last Taken 11/05/16] Budesonide [Uceris] 9 mg PO DAILY 11/07/16 [Last Taken 11/05/16] Calcium Carbonate/Vitamin D3 [CALCIUM 600 + VIT D TABLET] 1 each PO BID [Last Taken Unknown] Eflornithine HCl [Vaniqa] 1 hardy TP BID 11/07/16 [Last Taken Unknown] Fluticasone Nasal [Flonase Nasal [place] (RX)] 1 sprays NASAL BID 11/07/16 [Last Taken Unknown] Fluticasone/Salmeter 250/50Mcg [Advair 250/50 (*)] 1 puffs IH BID 11/07/16 [ Last Taken 11/05/16] Herbals/Supplements -Info Only 1 ea PO DAILY 11/07/16 [Last Taken Unknown] Reclast 5mg/100 1 each IV Q365D 11/07/16 [Last Taken Unknown] Vancomycin [Vancomycin (*)] 125 mg PO Q6 11/07/16 [Last Taken 11/05/16] predniSONE [predniSONE] 30 mg PO DAILY 11/07/16 [Last Taken 11/05/16] Adalimumab [Humira] 40 mg SQ AD 11/13/16 [Last Taken Unknown] Operating Room Registered Nurse Antibiotics: ceftriaxone 1gm IV daily; metronidazole 500mg IV q8h, micafungin 100mg IV D Operating Room Registered Nurse Antibiotic Stop Date: 12/13/16 Discharge Medications: Refer to the Discharge Home Medication list for PRN reason. PICC Care - Routine: Yes - Orders Diet Recommendation: other (NPO except sips/chips/meds) Wound Care Instructions: Please strip TIKA BID and record output. - Labs/Radiology CBC Date: 12/04/16 ( Sunday weekly) CMP Date: 12/04/16 ( Sunday weekly) Call or Fax Lab and Imaging Results to: [facility] [phone] - Follow Up Care Current Providers and Referrals: Neri Del Toro MD [Primary Care Provider] - As per Instructions Deepa Horton MD [Medical Doctor] - 12/12/16 11:00 am
[2016-12-01] MEDS: FLUTICASONE/SALMETER 250/50MCG DISKUS IH SCH (10:33)
--- NOTE | 2016-12-01 11:06 | HOSPPROG ---
Hospitalist Progress Note Assessment/Plan: 76 yo F with h/o ulcerative colitis, diverticulitis, recurrent c diff, chronic steroids, presented with bowel perf and abscess s/p drainage and repair on 2016, developed leak with feculent drainage in TIKA. Surgery is primary and dispo is per surgery. We are consulting. # bowel perforation/peritonitis: s/p repair and washout, with ongoing leak, continues to drain via TIKA. Pt does not want another surgery, but family pushing her to be more aggressive. -case discussed with Dr. Horton/Mervat -cont TIKA drain/iv abx/tpn for 2 weeks # recurrent c diff: continue PO vanc while on broad spectrum abx # h/o UC: on chronic steroids, weaning off prednisone given above, at baseline was on 30mg and now down to 5, will need to watch for s/s of AI or worsening UC on decreasing doses of pred. # acute diastolic CHF exacerbation: 2/2 volume resuscitation, w/ hypoxia, effusion, LE edema. wt 63 kg on admit, up to 85 kg, now down to 65 kg. -continue PO lasix -monitor I&O's, daily weights -follow BMP # oral ulcers: HSV neg # anemia: has been stable, received 1 unit in [place] op period # atrial fibrillation / flutter: currently in afib rate controlled, on tele -cont metop 12.5 tid -holding xarelto given recent surg and tenuous status with ongoing bowel leak. d/w mervat, who is ok with resuming AC. -cont ppx lovenox for now # depressed mood: patient endorsing depression, has been episodic but recurrent in the setting of severe illness -appreciate consult by Linda Lopez, who continues to follow -continue low dose celexa # ppx: high risk, h/o DVT, on lovenox 40 # diet: on TPN # code status: DNR, goals of care an ongoing conversation, palliative involved # dispo: pt has been discharged by surgery however the patient and would like to appeal the discharge given reported increased weakness since yesterday. Will check CBC/BMP today. Patient is high risk Subjective: reports increased weakness today. no other acute complaints Objective: Vital Signs Temp Pulse Resp BP Pulse Ox 37.1 C 85 12 113/64 96 12/01/16 08:00 12/01/16 08:00 12/01/16 08:00 12/01/16 08:00 12/01/16 08:00 Laboratory Results 11/28/16 17:30 11/30/16 06:20 11/30/16 12/01/16 12/02/16 05:59 05:59 05:59 Intake Total 1162 300 50 Output Total 3600 1950 200 Balance -2438 -1650 -150 PT 14.6 SEC (12.0-15.0) 11/27/16 06:10 INR 1.15 (0.83-1.16) 11/27/16 06:10 - Physical Exam Constitutional: no apparent distress, appears nourished, not in pain Cardiovascular: regular rate and rhythym, no murmur, rub, or gallop Respiratory: no respiratory distress, no rales or rhonchi, clear to auscultation Gastrointestinal: normoactive bowel sounds, soft, non-tender abdomen, no palpable masses Neurologic: AAOx3, sensation intact bilaterally ICD10 Worksheet Patient Problems: Problems Problem Status Onset Small bowel perforation Acute Intraperitoneal abscess Acute Palliative care encounter Acute Ulcerative colitis Acute History of - deep vein thrombosis Active Chronic bronchitis Active Fracture of lower leg Active Diverticulitis Acute Femur fracture Acute C. difficile diarrhea Acute 11/01/16
[2016-12-01 11:42] VITALS: BP 106/71; PULSE 88; RESP 18; TEMP 97.1; O2SAT 95
[2016-12-01 11:45] LABS: % IMMATURE GRANULYOCYTES 0.8 % (0.0-1.1); ABSOLUTE IMMATURE GRANULOCYTES 0.06 10^3/uL (0.00-0.10); ADD DIFF? NO; ADD MORPH? YES; ADD SCAN? NO; ATYPICAL LYMPHOCYTE FLAG 70 (0-99); FRAGMENT RBC FLAG 40 (0-99); HEMATOCRIT 33.3 % (38.0-47.0); HEMOGLOBIN 9.7 g/dL (12.6-16.3); LEFT SHIFT FLG 10 (0-99); LIPEMIA HEMOLYSIS FLAG 70 (0-99); MEAN CELL HEMOGLOBIN 25.6 pg (27.9-34.1); MEAN CELL HEMOGLOBIN CONCENTR. 29.1 g/dL (32.4-36.7); MEAN CELL VOLUME 87.9 fL (81.5-99.8); MEAN PLATELET VOLUME 10.8 fL (8.7-11.7); PLATELET CLUMPS FLAG 0 (0-99); PLATELET COUNT 364 10^3/uL (150-400); RED BLOOD CELL COUNT 3.79 10^6/uL (4.18-5.33)
[2016-12-01 11:46] LABS: RED CELL DISTRIBUTION WIDTH 22.4 % (11.5-15.2)
[2016-12-01 12:05] LABS: ANION GAP 12 mEq/L (8-16); CALCIUM 8.3 mg/dL (8.5-10.4); CARBON DIOXIDE 27 mEq/l (22-31); CHLORIDE 108 mEq/L (97-110); CREATININE 0.7 mg/dL (0.6-1.0); GLOMERULAR FILTRATION RATE > 60; GLUCOSE 180 mg/dL (70-100); POTASSIUM 4.1 mEq/L (3.5-5.2); SODIUM 147 mEq/L (134-144)
[2016-12-01 12:48] LABS: HYPOCHROMIA 1+; MICROCYTES 1+; PLATELET ESTIMATE ADEQUATE (ADEQ); POLYCHROMASIA 1+
== END 2016-12-01 14:28 | DRG 329 ==
LOC: EDUNIT# → OBSVTOIN 18:05 → F2N 19:31 → F2W 11-10 19:56
PROVIDERS: ADMIT Surgery; ATTEND Surgery
PROC: 0DQN0ZZ Repair Sigmoid Colon, Open Approach (ICD-10-PCS; principal; 2016-11-07 16:45)
PROC: 0W9G0ZZ Drainage of Peritoneal Cavity, Open Approach (ICD-10-PCS; principal; 2016-11-07 16:45)
PROC: 30233N1 Transfusion of Nonautologous Red Blood Cells into Peripheral Vein, Percutaneous Approach (ICD-10-PCS; 2016-11-13)
PROC: 02HV33Z Insertion of Infusion Device into Superior Vena Cava, Percutaneous Approach (ICD-10-PCS; 2016-11-15)
PROC: 05P Upper Veins, Removal (ICD-10-PCS; 2016-11-17)
PROC: 02HV33Z Insertion of Infusion Device into Superior Vena Cava, Percutaneous Approach (ICD-10-PCS; 2016-11-17)
PROC: 3E0436Z Introduction of Nutritional Substance into Central Vein, Percutaneous Approach (ICD-10-PCS; 2016-11-17)
DX: K57.20 Diverticulitis of large intestine with perforation and abscess without bleeding (principal); K51.018 Ulcerative (chronic) pancolitis with other complication; K63.1 Perforation of intestine (nontraumatic); K65.1 Peritoneal abscess; B96.20 Unspecified Escherichia coli [E. coli] as the cause of diseases classified elsewhere; B96.1 Klebsiella pneumoniae [K. pneumoniae] as the cause of diseases classified elsewhere; B37.89 Other sites of candidiasis; Z79.52 Long term (current) use of systemic steroids; D62 Acute posthemorrhagic anemia; E87.71 Transfusion associated circulatory overload; I50.31 Acute diastolic (congestive) heart failure; I48.0 Paroxysmal atrial fibrillation; Z86.718 Personal history of other venous thrombosis and embolism; Z79.01 Long term (current) use of anticoagulants; K56.7 Ileus, unspecified; E87.6 Hypokalemia; K12.1 Other forms of stomatitis; F43.21 Adjustment disorder with depressed mood; J45.909 Unspecified asthma, uncomplicated; Z96.643 Presence of artificial hip joint, bilateral; Z96.653 Presence of artificial knee joint, bilateral
CPT/HCPCS: 87186-90; 87529-90; 96365; 97110-GP; 97116-GP; 97161-GP; 97165-GO; 97530-GO; 97530-GP; 97532-GO; 97535-GO; C1751; G8978-GP-CI; G8978-GP-CK; G8979-GP-CI; G8979-GP-CL; G8987-GO-CK; G8987-GO-CL; G8988-GO-CI; G8988-GO-CJ; J0330; J0610; J0696; J1170; J1335; J1450; J1650; J1815; J1885; J2248; J2250; J2370; J2405; J2704; J3010; J3475; P9016; P9041; Q9967

== ENCOUNTER 2016-12-02 10:46 | Emergency (ER) | payer OTHER ==
[2016-12-02] MEDS ORDERED: ALTEPLASE 2 MG VIAL IVP PRN (10:52)
--- NOTE | 2016-12-02 11:11 | EDPHY ---
H & P Stated Complaint: picc line clogged HPI/ROS: Chief complaint: Clogged PICC line History of present illness: 76-year-old female brought to the emergency department from rehab by EMS for evaluation and treatment of a clogged PICC line. Patient has a PICC line in place to receive IV antibiotics after sustaining a bowel perforation a number of days ago. On my evaluation patient states she feels fine. She has no specific complaints. - Personal History Current Tetanus/Diphtheria Vaccine: Yes Current Tetanus Diphtheria and Acellular Pertussis (TDAP): Yes - Medical/Surgical History Hx Asthma: No Hx Chronic Respiratory Disease: No Hx Diabetes: No Hx Cardiac Disease: Yes Hx Renal Disease: No Hx Cirrhosis: No Hx Alcoholism: No Hx HIV/AIDS: No Hx Splenectomy or Spleen Trauma: No Other PMH: Ulcerative colitis, DVT, atfib, bilateral hip and knee replacements, diverticulitis - Social History Smoking Status: Never smoked - Physical Exam Exam: General: Alert, nontoxic Skin: PICC line placed in the right upper extremity Neurologic: Alert. Strength and sensation intact. Constitutional: Initial Vital Signs Temperature (C) 36.0 C 12/02/16 10:52 Heart Rate 101 H 12/02/16 10:52 Respiratory Rate 20 12/02/16 10:52 Blood Pressure 96/74 L 12/02/16 10:52 O2 Sat (%) 93 12/02/16 10:52 O2 Delivery Mode Nasal Cannula O2 (L/minute) 2 Allergies/Adverse Reactions: hydrocodone [Hydrocodone] Allergy (Intermediate, Verified 03/09/16 13:52) NAUSEA/VOMITING/HEARTBURN/CONSTIPATION rifaximin [From Xifaxan] Allergy (Mild, Verified 03/09/16 13:52) Rash vancomycin HCl [From Vancocin] Allergy (Mild, Verified 03/09/16 13:52) Rash WEEDS Allergy (Mild, Uncoded 11/26/12 16:19) Rash 2 ANTIBIOTICS Allergy (Uncoded 08/22/09 04:46) Home Medications: Medication Instructions Recorded Cetirizine [ZyrTEC 10 mg (*)] 10 mg PO DAILY 03/09/16 Estradiol [Estrace Vaginal (*)] 1 hardy VAG Q2D 03/09/16 Metoprolol Tartrate [Lopressor 25 12.5 mg PO BID 08/18/16 mg (*)] Eflornithine HCl [Vaniqa] 1 hardy TP BID 11/07/16 Fluticasone Nasal [Flonase Nasal 1 sprays NASAL BID 11/07/16 [place]] Fluticasone/Salmeter 250/50Mcg 1 puffs IH BID 11/07/16 [Advair 250/50 (*)] Vancomycin [Vancomycin (*)] 125 mg PO Q6 11/07/16 Pharmacy To DoseTPN 1 ea MISC AD #0 bag 12/01/16 TPN W/ Famotidine 1 ea IV DAILY21 #0 bag 12/01/16 [Hyperalimentation] Medical Decision Making ED Course/Re-evaluation: Patient seen under the supervision of my secondary supervising physician Dr. Alex Smith. Patient presents to the emergency department with EMS for a clogged PICC line. TPA is ordered per protocol and nursing staff is able to clear line. Patient has no complaints herself. Patient will be sent back to rehab. Departure - Departure Disposition: Home, Routine, Self-Care Clinical Impression: Occluded PICC line Qualifiers: Encounter type: initial encounter Qualified Code(s): T82.898A - Other specified complication of vascular prosthetic devices, implants and grafts, initial encounter Condition: Good Instructions: Peripherally Inserted Central Catheters and Midline Catheters (ED ) Additional Instructions: Follow-up with your doctor for recheck If symptoms worsen or new symptoms develop return to the emergency room for recheck Referrals: Neri Del Toro MD [Primary Care Provider] - As per Instructions
[2016-12-02 12:04] VITALS: BP 121/88; PULSE 77; RESP 16; TEMP 97.5; O2SAT 92
== END 2016-12-02 13:00 | disposition home or self-care (01) ==
LOC: EDUNIT#
DX: T82.898A Other specified complication of vascular prosthetic devices, implants and grafts, initial encounter (principal); Y71.2 Prosthetic and other implants, materials and accessory cardiovascular devices associated with adverse incidents
CPT/HCPCS: 96374; 99284; J2997

== ENCOUNTER 2017-03-12 02:33 | Emergency (ER) | payer OTHER ==
--- NOTE | 2017-03-12 02:36 | EDPHY ---
H & P HPI/ROS: HPI CHIEF COMPLAINT: Right lower extremity nodular region. HISTORY OF PRESENT ILLNESS: This patient very pleasant 68-year-old female she does have a history of a flutter on Xarelto, remote history of DVT 9 years ago, diverticulitis and ulcerative colitis, hyponatremia she presents emergency room as she knows around 1:00 a.m. this morning approximately 2 hours ago right calf area of hardness and mild tenderness. She notices accidentally. She has been wearing compression stockings due to lower extremity edema. She denies any chest pain or shortness of breath denies fever. Denies redness. Denies significant calf pain. She called the nurse hotline refer to emergency room for evaluation. Past Medical History: Atrial flutter on Xarelto, ulcer colitis, perforated diverticulitis hyponatremia Past Surgical History: Bilateral knee replacement, PICC line, perforated diverticulitis surgery Social History: Denies daily use of drugs alcohol tobacco products. Family History: Noncontributory ROS REVIEW OF SYSTEMS: A comprehensive 10 point review of systems is otherwise negative aside from elements mentioned in the history of present illness. Exam Constitutional appears well nontoxic, triage nursing summary reviewed, vital signs reviewed, awake/alert. Eyes normal conjunctivae and sclera, EOMI, PERRLA. HENT normal inspection, atraumatic, moist mucus membranes, no epistaxis, neck supple/ no meningismus, no raccoon eyes. Respiratory clear to auscultation bilaterally, normal breath sounds, no respiratory distress, no wheezing. Cardiovascular rate normal, regular rhythm, no murmur, no edema, distal pulses normal. Gastrointestinal soft, non-tender, no rebound, no guarding, normal bowel sounds, no distension, no pulsatile mass. Genitourinary no CVA tenderness. Musculoskeletal bilateral lower extremity edema, old knee replacement scars, of the right lower extremity is neurovascularly intact warm extremity. Good cap refill, good distal pulse. Medial aspect posterior calf distal aspect of the right calf shows area of firmness and hardness most likely consistent with edema. No significant swelling. no midline vertebral tenderness, full range of motion, no calf swelling, no tenderness of extremities, no meningismus, good pulses, neurovascularly intact. Skin pink, warm, & dry, no rash, skin atraumatic. Neurologic awake, alert and oriented x 3, AAOx3, moves all 4 extremities equally, motor intact, sensory intact, CN II-XII intact, normal cerebellar, normal vision, normal speech. Psychiatric normal mood/affect. Heme/Lymph/Immune no lymphadenopathy. Differential Diagnosis: Includes but is not limited to in a particular order right lower extremity edema, venous insufficiency, thrombophlebitis, DVT Medical Decision Making: Plan for this patient ultrasound to rule out DVT. Re-evaluation: Most likely clinically this is just peripheral edema. Hardened area. Recommend elevating her legs, compression stockings. Will perform ultrasound to rule out DVT but I think this is unlikely. Ultrasound shows no evidence of DVT. Source: Patient - Medical/Surgical History Hx Asthma: No Hx Chronic Respiratory Disease: No Hx Diabetes: No Hx Cardiac Disease: Yes Hx Renal Disease: No Hx Cirrhosis: No Hx Alcoholism: No Hx HIV/AIDS: No Hx Splenectomy or Spleen Trauma: No Other PMH: Ulcerative colitis, DVT, atfib, bilateral hip and knee replacements, diverticulitis - Social History Smoking Status: Never smoked Constitutional: Initial Vital Signs Temperature (C) 36.9 C 03/12/17 02:39 Heart Rate 92 03/12/17 02:39 Respiratory Rate 15 03/12/17 02:39 Blood Pressure 138/103 H 03/12/17 02:39 O2 Sat (%) 91 L 03/12/17 02:39 O2 Delivery Mode Room Air Allergies/Adverse Reactions: rifaximin [From Xifaxan] Allergy (Mild, Verified 03/09/16 13:52) Rash WEEDS Allergy (Mild, Uncoded 11/26/12 16:19) Rash 2 ANTIBIOTICS Allergy (Uncoded 08/22/09 04:46) Home Medications: Medication Instructions Recorded Cetirizine [ZyrTEC 10 mg (*)] 10 mg PO DAILY 03/09/16 Estradiol [Estrace Vaginal (*)] 1 hardy VAG Q2D 03/09/16 Metoprolol Tartrate [Lopressor 25 12.5 mg PO BID 03/09/16 mg (*)] Eflornithine HCl [Vaniqa] 1 hardy TP BID 11/07/16 Fluticasone Nasal [Flonase Nasal 1 sprays NASAL BID 11/07/16 [place]] Fluticasone/Salmeter 250/50Mcg 1 puffs IH BID 11/07/16 [Advair 250/50 (*)] Vancomycin [Vancomycin (*)] 125 mg PO Q6 11/07/16 Pharmacy To DoseTPN 1 ea MISC AD #0 bag 12/01/16 TPN W/ Famotidine 1 ea IV DAILY21 #0 bag 12/01/16 [Hyperalimentation] Departure - Departure Disposition: Home, Routine, Self-Care Clinical Impression: Leg edema Condition: Good Instructions: Edema (ED) Additional Instructions: 1. Elevate her legs. 2. Continue using her compression stockings. 3. Return emergency room if you have any worsening symptoms questions or concerns. Referrals: Neri Del Toro MD [Primary Care Provider] - As per Instructions
[2017-03-12 02:45] VITALS: BP 138/103; PULSE 92; RESP 15; TEMP 98.4; O2SAT 91
== END 2017-03-12 03:30 | disposition home or self-care (01) ==
DX: R60.0 Localized edema (principal)

== ENCOUNTER → 2017-03-13 | Outpatient (CLI) | payer OTHER | LOC: FIMAGING 14:22 | PROVIDERS: ATTEND Internal Medicine | DX: Z12.31 Encounter for screening mammogram for malignant neoplasm of breast (principal) | CPT/HCPCS: G0202 ==

== ENCOUNTER → 2017-04-10 | Outpatient (CLI) | payer OTHER | LOC: BMCIMAGING 15:10 | PROVIDERS: ATTEND Internal Medicine | DX: R61 Generalized hyperhidrosis (principal); I51.7 Cardiomegaly; M19.011 Primary osteoarthritis, right shoulder; M19.012 Primary osteoarthritis, left shoulder ==

== ENCOUNTER → 2017-05-08 | Outpatient (CLI) | payer OTHER | LOC: FIMAGING 15:48 | PROVIDERS: ATTEND Internal Medicine | DX: R05 Cough (principal); I25.10 Atherosclerotic heart disease of native coronary artery without angina pectoris; K80.20 Calculus of gallbladder without cholecystitis without obstruction ==

== ENCOUNTER → 2017-06-20 | Outpatient (CLI) | payer OTHER | LOC: FIMAGING 09:32 → EDSTATUS 09:34 | PROVIDERS: ATTEND Internal Medicine | DX: M19.012 Primary osteoarthritis, left shoulder (principal) ==

== ENCOUNTER → 2017-08-06 | Outpatient (CLI) | payer OTHER | LOC: FIMAGING 07:34 | PROVIDERS: ATTEND Internal Medicine Infectious Disease | DX: I87.2 Venous insufficiency (chronic) (peripheral) (principal); I82.403 Acute embolism and thrombosis of unspecified deep veins of lower extremity, bilateral ==

== ENCOUNTER → 2017-11-29 | Outpatient (CLI) | payer OTHER | LOC: BMCIMAGING 17:19 | PROVIDERS: ATTEND Family Medicine | DX: M25.771 Osteophyte, right ankle (principal); M77.51 Other enthesopathy of right foot and ankle ==

== ENCOUNTER → 2017-12-12 | Outpatient (CLI) | payer OTHER | LOC: BHFA 14:45 | PROVIDERS: ATTEND Internal Medicine Cardiovascular Disease | DX: I48.91 Unspecified atrial fibrillation (principal) ==

== ENCOUNTER 2018-01-11 06:24 | Emergency (ER) | payer OTHER ==
[2018-01-11 07:03] LABS: PLATELET COUNT 270 10^3/uL (150-400)
[2018-01-11] MEDS ORDERED: NS 1,000 ML IV ONE (07:28)
[2018-01-11] MEDS ORDERED: IOPAMIDOL (ISOVUE-300) 100 ML BTL ONE (07:32)
--- NOTE | 2018-01-11 07:33 | EDPHY ---
H & P Stated Complaint: abd pain Time Seen by Provider: 01/11/18 07:02 HPI/ROS: CHIEF COMPLAINT: Fever HISTORY OF PRESENT ILLNESS: 77-year-old female with ulcerative colitis presents with 4 day history of fever. Onset of dysuria 5 days ago. Diagnosed with urinary tract infection and placed on Keflex. Urine culture from 01/06/18 negative. Fever started 4 days ago and persists today. Associated with lack of appetite, generalized weakness and 1 episode of vomiting yesterday. Diarrhea started yesterday. Denies abdominal pain. 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 Jacobs - Physical Exam Exam: General Appearance: Alert, pleasant Eyes: Pupils equal and round, no conjunctival pallor ENT, Mouth: Mucous membranes dry Neck: Normal inspection Respiratory: Lungs are clear to auscultation Cardiovascular: Regular rate and rhythm Gastrointestinal: Abdomen is soft, left lower quadrant tenderness Neurological: A&O, nonfocal exam Skin: Warm and dry Extremities: Normal inspection Psychiatric: Mood and affect normal Constitutional: Initial Vital Signs O2 Sat (%) 95 01/11/18 06:54 O2 Delivery Mode Room Air O2 (L/minute) 2 Allergies/Adverse Reactions: rifaximin [From Xifaxan] Allergy (Mild, Verified 03/09/16 13:52) Rash WEEDS Allergy (Mild, Uncoded 11/26/12 16:19) Rash 2 ANTIBIOTICS Allergy (Uncoded 08/22/09 04:46) Home Medications: Medication Instructions Recorded Cetirizine [ZyrTEC 10 mg (*)] 10 mg PO DAILY 03/09/16 Estradiol [Estrace Vaginal (*)] 1 hardy VAG Q2D 08/18/16 Metoprolol Tartrate [Lopressor 25 12.5 mg PO BID 03/09/16 mg (*)] Eflornithine HCl [Vaniqa] 1 hardy TP BID 11/07/16 Fluticasone Nasal [Flonase Nasal 1 sprays NASAL BID 11/07/16 Amber] Fluticasone/Salmeter 250/50Mcg 1 puffs IH BID 11/07/16 [Advair 250/50 (*)] Keflex 01/11/18 Xarelto 01/11/18 metroNIDAZOLE [Flagyl 500 mg (*)] 500 mg PO TID #30 tab 01/11/18 Medical Decision Making - Diagnostics Imaging Results: Abdomen CT 01/11/18 07:28 Impression: 1. Acute colitis involving the entire colon, but most severe within the distal colon. Most compatible with known clinical history of ulcerative colitis. 2. Diverticulosis. No discrete diverticulitis. 3. Nonobstructive cholelithiasis. 4. Interval resolution of small right pleural effusion. Findings were communicated by telephone with Dr. INDERJIT HURLEY at 01/11/2018 8: 22 Imaging: Discussed imaging studies w/ score caller Radiologist ED Course/Re-evaluation: This patient presents with persistent fever, left lower quadrant tenderness and diarrhea. Concerning for acute diverticulitis. Urine culture reviewed and was negative earlier this week. A repeat urine culture is pending. IV normal saline 1 L given for dehydration. CT scan of the abdomen pelvis ordered. 8:45am-CT scan results discussed with the patient and her . I advised admission for further evaluation and treatment. However the patient declines and concurs. Looks/feels better after IVF. Abd exam remains benign. UA/stool studies pending. 11:00 a.m.-Cdif positive. d/w pt, continues to decline admission. Consulted with Dr. Durbin, will place the patient on Flagyl. Unclear if C diff is positive because of active infection or because she is a carrier. Discontinue Keflex. She will follow up in the office early next week with Dr. Jacobs. Abd pain/ dehydration precautions given. Differential Diagnosis: includes though not limited to diverticulitis, abscess, bowel perforation, appy , SBO - Data Points Laboratory Results: Laboratory Results 01/11/18 06:39 01/11/18 06:39 Microbiology Results: MICROBIOLOGY 01/11/18 09:20 Stool Gastrointestinal Tract Panel (PCR) - Final Clostridium Difficile Detected Medications Given: Discontinued Medications Sodium Chloride (Ns) 1,000 mls @ 0 mls/hr IV EDNOW ONE; Wide Open PRN Reason: Protocol Stop: 01/11/18 07:29 Last Admin: 01/11/18 07:31 Dose: 1,000 mls Departure - Departure Disposition: Home, Routine, Self-Care Clinical Impression: Diarrhea, Ulcerative colitis Condition: Fair Instructions: Metronidazole (By mouth), C Diff (Clostridium Difficile) Infection (ED) Additional Instructions: Call Dr. Jacobs to make an appointment. Drink plenty of fluids. Return for worsening symptoms or any concerns. Referrals: Neri Del Toro MD [Primary Care Provider] - As per Instructions Prescriptions: metroNIDAZOLE [Flagyl 500 mg (*)] 500 mg PO TID #30 tab
[2018-01-11 09:25] VITALS: BP 103/66
== END 2018-01-11 11:41 | disposition home or self-care (01) ==
DX: K51.90 Ulcerative colitis, unspecified, without complications (principal); E86.9 Volume depletion, unspecified
CPT/HCPCS: 74177; 99285; Q9967

== ENCOUNTER → 2018-01-29 | Outpatient (CLI) | payer OTHER | LOC: BHFA 14:15 | PROVIDERS: ATTEND Nurse Practitioner Adult Health | DX: I48.91 Unspecified atrial fibrillation (principal); I27.20 Pulmonary hypertension, unspecified; R60.9 Edema, unspecified ==

== ENCOUNTER → 2018-03-15 | Outpatient (CLI) | payer OTHER | LOC: FIMAGING 09:06 | PROVIDERS: ATTEND Internal Medicine | DX: Z12.31 Encounter for screening mammogram for malignant neoplasm of breast (principal) ==

== ENCOUNTER → 2018-05-08 | Outpatient (CLI) | payer OTHER | LOC: BMCIMAGING 13:41 | PROVIDERS: ATTEND Internal Medicine | DX: J42 Unspecified chronic bronchitis (principal); I70.0 Atherosclerosis of aorta ==

== ENCOUNTER → 2018-07-11 | Outpatient (CLI) | payer OTHER | LOC: BMCIMAGING 10:22 | PROVIDERS: ATTEND Internal Medicine Rheumatology | DX: M81.0 Age-related osteoporosis without current pathological fracture (principal) ==

== ENCOUNTER → 2018-07-26 | Outpatient (CLI) | payer OTHER | LOC: FIMAGING 13:11 | PROVIDERS: ATTEND Internal Medicine | DX: R05 Cough (principal) ==

== ENCOUNTER → 2018-12-27 | Outpatient (CLI) | payer OTHER | LOC: BMCIMAGING 11:21 ==

== ENCOUNTER → 2019-01-02 | Outpatient (CLI) | payer OTHER | LOC: BMCIMAGING 14:56 ==